=== PATIENT | male | born 1945 | race Caucasian/White ===

== ENCOUNTER → 2018-05-25 06:40 | Outpatient (CLI) | payer MEDICARE, OTHER, SELFPAY ==
--- NOTE | 2018-05-25 | DI.US.S_ITS ---
PROCEDURE: US THYROID INDICATIONS: GOITER, L NECK MASS, LN VS NODULE TECHNIQUE: Real-time scanning was performed of the thyroid gland, with image documentation. COMPARISON: None. FINDINGS: Right: 1.6 x 1.7 x 5.6 cm dimensions. No nodules. Left: 1.9 x 1.2 x 5.5 cm. No nodules. Isthmus: 3.0 mm. IMPRESSION: No thyroid nodules, normal size thyroid bilaterally. Dictated by: Mu Wiggins M.D. on 05/26/2018 at 12:21 Approved by: Mu Wiggins M.D. on 05/26/2018 at 12:24
[2018-05-25 07:46] LABS: Add Manual Diff / Slide Review NO; Basophils Absolute Auto 0 /uL (0-100); Basophils Percent Auto 0.6 % (0-2); Eosinophils Absolute Auto 100 /uL (0-450); Eosinophils Percent Auto 1.6 % (2-4); Hemoglobin 15.9 g/dL (13.5-17.5); Lymphocytes Absolute Auto 1400 /uL (1100-4500); Lymphocytes Percent Auto 34.3 % (25-40); Mean Corpuscular HGB Conc 33.7 % (30-36); Mean Corpuscular Volume 88.8 fL (80-100); Monocytes Absolute Auto 500 /uL (0-900); Monocytes Percent Auto 11.2 % (3-14); Neutrophils Absolute Auto 2200 /uL (1500-7000); Neutrophils Percent Auto 52.3 % (50-75); Platelet Count 252 X10^3/uL (150-400); Red Blood Cell Count 5.29 X10^6/uL (4.5-5.9); Red Cell Distribution Width 13.4 % (11.6-14.8); White Blood Cell Count 4.2 X10^3/uL (4.5-11.0)
[2018-05-25 08:03] LABS: Alanine Aminotransferase 37 IU/L (21-72); Albumin 4.4 g/dL (3.5-5.0); Albumin Globulin Ratio 1.4 (1.0-2.8); Alkaline Phosphatase 45 U/L (38-126); Aspartate Aminotransferase 32 IU/L (17-59); BUN Creatinine Ratio 23.3 (6-22); Bilirubin Total 1.5 mg/dL (0.2-1.3); Blood Urea Nitrogen 21 mg/dL (9-20); Calcium 9.5 mg/dL (8.4-10.2); Carbon Dioxide 28 mmol/L (22-32); Chloride 101 mmol/L (98-107); Cholesterol 297 mg/dL (140-199); Estimated Glomerular Filt Rate > 60.0 mL/min (>60); Globulin 3.2 g/dL (1.7-4.1); Glucose 117 mg/dL (80-110); HDL Cholesterol 68 mg/dL (40-60); HEMOLYSIS < 15 (0-50); LDL Cholesterol Calculated 212 mg/dL (<100); Potassium 4.3 mmol/L (3.4-5.1); Sodium 140 mmol/L (137-145); Total Protein 7.6 g/dL (6.3-8.2); Triglycerides 83 mg/dL (35-150)
[2018-05-25 08:13] LABS: C-Reactive Protein Quant < 0.5 mg/dL (<1.0)
[2018-05-25 09:05] LABS: Free T3, Triiodothyronine Free 4.02 pg/mL (2.77-5.27); Free T4, Direct Thyroxine 1.03 ng/dL (0.78-2.19)
[2018-05-26 14:20] LABS: Anti Thyroglobulin Antibody < 1 IU/mL (< 2); Thyroid Peroxidase Antibodies 1 IU/mL (< 9)
== END ==
PROVIDERS: PCP Nurse Practitioner Family; Visit Provider Nurse Practitioner Family
DX: E04.9 Nontoxic goiter, unspecified (principal); R22.1 Localized swelling, mass and lump, neck
CPT/HCPCS: 36415; 76536; 80053; 80061; 84439; 84443; 84481; 85025; 86140; 86376; 86800

== ENCOUNTER → 2020-05-17 15:03 | Outpatient (CLI) | payer MEDICARE, OTHER, SELFPAY ==
--- NOTE | 2020-05-17 | DI.RAD.S_ITS ---
PROCEDURE: XR SHOULDER RT MIN 2V INDICATIONS: RIGHT SHOULDER PAIN TECHNIQUE: 3 views of the shoulder were acquired. COMPARISON: None. FINDINGS: Bones: No fractures or dislocations. No suspicious bony lesions. Visualized ribs appear intact. 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 Moderate glenohumeral joint degenerative change. No trauma found. Soft tissues: No suspicious soft tissue calcifications. IMPRESSION: Degenerative changes as discussed, overall most pronounced at the acromioclavicular joint. No trauma. Dictated by: Mu Wiggins M.D. on 05/17/2020 at 16:51 Approved by: Mu Wiggins M.D. on 05/17/2020 at 16:52
== END ==
PROVIDERS: PCP Family Medicine; Referring Provider Family Medicine; Visit Provider Family Medicine
DX: M25.511 Pain in right shoulder (principal); M19.011 Primary osteoarthritis, right shoulder
CPT/HCPCS: 73030

== ENCOUNTER 2020-10-17 14:15 | Outpatient (RCR) | payer MEDICARE, OTHER, SELFPAY ==
--- NOTE | 2020-10-03 16:12 | PT.OIE ---
Current Diagnoses Parkinson's disease (10/03/20) Visit Care Team Role Provider Type Lenard Nance MD Primary Care Provider Physician Specialty: Family Practice Address: [address], [facility] [address], [place], [address] Email: [email or web address] Mainor Mckenna MD Attending Provider Non-Staff Referring Provider Specialty: Neurology Address: [address] [place] [address], [place], [address] Email: Physical Therapy Initial Evaluation PT-OP-A Visit Information Start: 10/01/20 15:11 Freq: Status: Active Protocol: Document 10/03/20 14:16 MB (Rec: 10/03/20 14:52 MB [id number]) Out-Patient Physical Therapy Visit Information Visit Information Visit Type Initial Evaluation Visit Note Medicare, [employer] Pt's larisa Shi, arrives with pt. Pt goes by Jaswant. 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 Pt lives with his significant other, Shi, and their 13 y/o dog. They have an apartment and also live on a boat that is easy to get on and off of. He denies falls. There are 10 [address] to the apartment. He drives. Pt 's diagnosis is new and was given in May 2020. He had a right shoulder issue and when he went to his doctor, he ask him to walk and then his doctor sent him to a neurologist. He had a MRI 6 weeks ago and the memory part was reduced. Pt was put on substitute Aricept. He is supposed to notice something different as he has been on it for six weeks. He has not started Carbidopa Levodopa yet and is concerned about it and taking pills in general. Pt diagnosed with aortic stenosis in April 2019. He is taking a statin. He reports B calf cramping. Further PMH includes HTN, mild dyslipidemia. Pt states that he is spitting a lot. He has thick, cleared mucus that is hard to clear. This keeps hiim up a lot at night. Pt drinks 2 cups of caffeinated coffee a day, 1-2 bottles of water, 1 glass of wine a night. Treatment Goals Patient/Caregiver Goals Pt and Shi would like for pt to be able to take charge of his health and stay active until his 90s. Prior Functional Status Baseline Function- ADL's Independent Baseline Function- Mobility Independent PT-OP-C Subjective Start: 10/01/20 15:11 Freq: Status: Active Protocol: Document 10/03/20 14:16 MB (Rec: 10/03/20 14:52 MB [id number]) OP-PT Subjective Patient Comments Patient Comments See history of current condition PT-OP-G Mobility & Gait Start: 10/01/20 15:11 Freq: Status: Active Protocol: Document 10/03/20 14:16 MB (Rec: 10/03/20 16:12 MB [id number]) OP Mobility Evaluation Bed Mobility Rolling I Supine to and from Sit I Transfers Sit to Stand I, 14 reps sit to design engineering manager 30 sec Bed to Chair Transfers I OP Gait Assessment Gait Gait Assistance Required: Independent Distance (Feet) 50 Able to Maintain Weight Bearing Status Yes During Gait Assistive Devices Assistive Device None Orthotic/Prosthetic Devices or Brace: No Gait Deviations General Gait Pattern Decreased Feet Clearance, Flexed Trunk Factors Limiting Gait Function Factors Limiting Gait Function Incoordination,Limited Range of Motion,Pain,Poor Balance Comments Gait Comments Forward, flexed posture with short steps and 1 episode of not clearing right foot with gait, little right UE arm swing with gait, kick steps that are mildly festinating PT-OP-H Neuro Start: 10/01/20 15:11 Freq: Status: Active Protocol: Document 10/03/20 14:16 MB (Rec: 10/03/20 16:12 MB [id number]) Coordination Evaluation Upper Extremity Tests Left Finger to Nose Test Minimal Impairment Pronation/Supination Test Minimal Impairment Right Finger to Nose Test Minimal Impairment Pronation/Supination Test Moderate Impairment Lower Extremity Tests Left Foot Tapping Test Minimal Impairment Right Foot Tapping Test Moderate Impairment Comments Coordination Comments Pt performs foot tapping on opposite side of other foot for LE test Vital Signs Comments Vital Signs Comments Orthostatic assessment: BP and HR in LUE: supine 102/68; standing 111/78, 77; standing 1' 103/73, 70; standing 2' 111 /80, 78 PT-OP-K Range of Motion Start: 10/01/20 15:11 Freq: Status: Active Protocol: Document 10/03/20 14:16 MB (Rec: 10/03/20 16:12 MB [id number]) Shoulder Goniometric Range of Motion Shoulder ROM Limitations Comments Left shoulder ROM is functional. Right shoulder flexion and abduction is reduced to 90 deg both PT-OP-M Strength Start: 10/01/20 15:11 Freq: Status: Active Protocol: Document 10/03/20 14:16 MB (Rec: 10/03/20 16:12 MB [id number]) Shoulder Strength Shoulder Manual Muscle Testing Left Flexion 5 Normal Right Comments Deferred d/t painful and limited AROM Elbow/Forearm Strength Elbow and Forearm Manual Muscle Testing Left Flexion (C6) 5 Normal Right Flexion (C6) 5 Normal Hip Strength Hip Manual Muscle Testing B Flexion (L2) 5 Normal Knee Strength Knee Manual Muscle Testing B Extension (L3) 5 Normal Ankle/Foot Strength Ankle and Foot Manual Muscle Testing B Dorsiflexion (L4) 5 Normal Toe Strength Toe Manual Muscle Testing Left Great Toe Extension 5 Normal Right Great Toe Extension 5 Normal PT-OP-Q Treatments Start: 10/01/20 15:11 Freq: Status: Active Protocol: Document 10/03/20 14:16 MB (Rec: 10/03/20 15:55 MB [id number]) Self-Care/Home Management Treatment Education Other Education Education to pt and Shi: they both report concerns about Carbidopa and Levodopa and PT encourages them to call doctor's office and the benefits of receiving pharmacological therapies at the same time as LSVt, PT educates pt on dopamine and movement. Pt reports history of calf cramps and wooziness and PT ed pt on better hydration choices, PT ed on orthostatic hypotension and commonality with PD and also with aortic stenosis and HCTZ. Orthostatic assessment is negative and BP is low. Recommend follow-up with doctors as appropriate. PT ed pt and Shi to talk with doctor and pharmacist about magnesium/leg cramps. PT provides handout about LSVT BIG, exercise video, filling out functional activity list before next visit. Ed PT in other signs and symptoms of PD including trouble swallowing and benefits of following up with speech therapy about this and Shi to contact doctor about swallow study. PT-OP-T Assessment and Plan Start: 10/01/20 15:11 Freq: Status: Active Protocol: Document 10/03/20 14:16 MB (Rec: 10/03/20 16:06 MB [id number]) Physical Therapy Assessment Rehab Potential Rehabilitation Potential Good Evaluation Complexity Number of Personal Factors/Comorbidities 3 or More Number of Body Systems Impaired 3 Clinical Presentation at Evaluation Evolving Impairments Impairments Activity Tolerance,Balance, Coordination,Functional Activities,Functional Mobility ,Gait,Pain,Posture,ROM,Soft Tissue Mobility,Strength, Transfers Other Impairments Personal factors include changing cognition, reluctance to take PD medication, concerns about his voice and asking Shi to speak for him occ. Body systems affected include musculoskeletal, neurological, cardiac and cognitive. His clinical presentation is evolving. Other Concerns Fall Risk Yes Goals 4 Fci Goal (LTG) Pt will perform WNLs on a standardized balance test to decrease fall risk by 11/11/20. LTG Duration 16 treatments 3 Fci Goal (LTG) Pt will perform at least 16 reps sit to stand without UE support in 30 sec to improve functional balance and strength by 11/11/20. LTG Duration 16 treatments 2 Fci Goal (LTG) Pt will gait train at least 1600 feet in 6 minutes without AD and performing cognitive task at least 3' to improve community ambulation by . LTG Duration 16 treatments 1 Neurological Physiotherapist Goal (LTG) Pt will perform BIG exercises and functional tasks BID to improve amplitude and balance by 11/11/20. LTG Duration 16 treatments Assessment Summary Assessment Pt is a 74 y/o male presenting with dysdiadochokinesia, altered gait, decreased right shoulder ROM and right arm swing with gait, cognitive changes, soft voice and reports of swallowing changes in setting of newly diagnosed PD 05/23. Pt and significant other state that they have been nervous for him to start PD medication and PT provides education within PT scope and recommends follow-up with neurologist about getting started so that pharmacological therapies can augment physical therapy intereventions. PT also encourages asking doctor for a speech therapy swallowing consult. His BP is low and he reports his biggest complaint is wooziness and orthostatic testing is negative today. Recommend keep an eye on this given PD, symptoms, low BP and he is on HCTZ. Pt will benefit from BIG PT to improve amplitude, gait and function. Barriers include: low BP and wooziness, aortic stenosis, leg cramps worse when up walking and pt taking statin, not yet treated with pharmacological therapies and questionable swallowing. Physical Therapy Plan Frequency and Duration Frequency of Treatment 16 treatments Duration of Treatment 16 treatments Plan of Care Start Date 10/03/20 Plan of Care End Date 11/11/20 Therapeutic Interventions Therapeutic Interventions Balance Training,Canalithic Repositioning,Coordination Training,Gait Training,Home Exercise Program,Neuromuscular Re-education,Patient/ Caregiver Education,Self-Care/ Home Management,Therapeutic Activities,Therapeutic Exercises Modalities Cold Pack/Ice Massage,Hot Packs Other Referrals/Consults Referrals/Consults Recommended Follow-up with neurologist about starting recommended PD medication, swallowing test Next Visit Focus/Plan Next Note Type Treatment Note Next Visit Plan Review functional tasks for goals, start BIG exercises, give video DVD for pt to borrow
--- NOTE | 2020-10-03 16:13 | PT.OPPOC ---
Physical, Occupational & Speech Therapy At [facility] Current Diagnoses Parkinson's disease (10/03/20) Visit Care Team Role Provider Type Lenard Nance MD Primary Care Provider Physician Specialty: Family Practice Address: [address] [place] [address], [address], [place], [address] Email: [email or web address] Mainor Mckenna MD Attending Provider Non-Staff Referring Provider Specialty: Neurology Address: [address] [place] [address] [id number], [place], [address] Email: Plan Of Care PT-OP-T Assessment and Plan Start: 10/01/20 15:11 Freq: Status: Active Protocol: Document 10/03/20 14:16 MB (Rec: 10/03/20 16:06 MB [id number]) Physical Therapy Assessment Rehab Potential Rehabilitation Potential Good Evaluation Complexity Number of Personal Factors/Comorbidities 3 or More Number of Body Systems Impaired 3 Clinical Presentation at Evaluation Evolving Impairments Impairments Activity Tolerance,Balance, Coordination,Functional Activities,Functional Mobility ,Gait,Pain,Posture,ROM,Soft Tissue Mobility,Strength, Transfers Other Impairments Personal factors include changing cognition, reluctance to take PD medication, concerns about his voice and asking Shi to speak for him occ. Body systems affected include musculoskeletal, neurological, cardiac and cognitive. His clinical presentation is evolving. Other Concerns Fall Risk Yes Goals 4 Seam Taper Machine Goal (LTG) Pt will perform WNLs on a standardized balance test to decrease fall risk by 11/11/20. LTG Duration 16 treatments 3 Fci Goal (LTG) Pt will perform at least 16 reps sit to stand without UE support in 30 sec to improve functional balance and strength by 11/11/20. LTG Duration 16 treatments 2 Seam Taper Machine Goal (LTG) Pt will gait train at least 1600 feet in 6 minutes without AD and performing cognitive task at least 3' to improve community ambulation by . LTG Duration 16 treatments 1 Seam Taper Machine Goal (LTG) Pt will perform BIG exercises and functional tasks BID to improve amplitude and balance by 11/11/20. LTG Duration 16 treatments Assessment Summary Assessment Pt is a 74 y/o male presenting with dysdiadochokinesia, altered gait, decreased right shoulder ROM and right arm swing with gait, cognitive changes, soft voice and reports of swallowing changes in setting of newly diagnosed PD 05/23. Pt and significant other state that they have been nervous for him to start PD medication and PT provides education within PT scope and recommends follow-up with neurologist about getting started so that pharmacological therapies can augment physical therapy intereventions. PT also encourages asking doctor for a speech therapy swallowing consult. His BP is low and he reports his biggest complaint is wooziness and orthostatic testing is negative today. Recommend keep an eye on this given PD, symptoms, low BP and he is on HCTZ. Pt will benefit from BIG PT to improve amplitude, gait and function. Barriers include: low BP and wooziness, aortic stenosis, leg cramps worse when up walking and pt taking statin, not yet treated with pharmacological therapies and questionable swallowing. Physical Therapy Plan Frequency and Duration Frequency of Treatment 16 treatments Duration of Treatment 16 treatments Plan of Care Start Date 10/03/20 Plan of Care End Date 11/11/20 Therapeutic Interventions Therapeutic Interventions Balance Training,Canalithic Repositioning,Coordination Training,Gait Training,Home Exercise Program,Neuromuscular Re-education,Patient/ Caregiver Education,Self-Care/ Home Management,Therapeutic Activities,Therapeutic Exercises Modalities Cold Pack/Ice Massage,Hot Packs Other Referrals/Consults Referrals/Consults Recommended Follow-up with neurologist about starting recommended PD medication, swallowing test Next Visit Focus/Plan Next Note Type Treatment Note Next Visit Plan Review functional tasks for goals, start BIG exercises, give video DVD for pt to borrow Plan of Care Dates Plan of Care Start Date 10/03/20 Plan of Care End Date 11/11/20 Electronically Signed by: Harika Booker PT 10/03/20 1924 Please Sign and Return: I have reviewed this Plan of Care and certify that the skilled therapy services above are required to meet the patient?s needs. Physician Signature Date Printed Name and Credentials Clinical Instructor Signature Printed Name and Credentials
--- NOTE | 2020-10-07 15:37 | PT.OTN ---
Current Diagnoses Parkinson's disease (10/07/20) Physical Therapy Treatment Note PT-OP-A Visit Information Start: 10/01/20 15:11 Freq: Status: Active Protocol: Document 10/07/20 14:15 MB (Rec: 10/07/20 15:37 MB [id number]) Out-Patient Physical Therapy Visit Information Visit Information Visit Type Treatment Note Visit Note Medicare, [employer] Visit Start Time 14:15 Visit Stop Time 15:13 Total Visit Minutes 58 Visit Number 2 PT-OP-B Current Condition Start: 10/01/20 15:11 Freq: Status: Active Protocol: Document 10/03/20 14:16 MB (Rec: 10/03/20 14:52 MB [id number]) Current Condition History of Current Condition Onset Date May 2020 Current Complaints Wooziness, right UE pain and decreased function, cognitive and voice change History of Current Condition 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 Pt lives with his significant other, Shi, and their 13 y/o dog. They have an apartment and also live on a boat that is easy to get on and off of. He denies falls. There are 10 steps to the apartment. He drives. Pt 's diagnosis is new and was given in May 2020. He had a right shoulder issue and when he went to his doctor, he ask him to walk and then his doctor sent him to a neurologist. He had a MRI 6 weeks ago and the memory part was reduced. Pt was put on substitute Aricept. He is supposed to notice something different as he has been on it for six weeks. He has not started Carbidopa Levodopa yet and is concerned about it and taking pills in general. Pt diagnosed with aortic stenosis in April 2019. He is taking a statin. He reports B calf cramping. Further PMH includes HTN, mild dyslipidemia. Pt states that he is spitting a lot. He has thick, cleared mucus that is hard to clear. This keeps hiim up a lot at night. Pt drinks 2 cups of caffeinated coffee a day, 1-2 bottles of water, 1 glass of wine a night. Treatment Goals Patient/Caregiver Goals Pt and Shi would like for pt to be able to take charge of his health and stay active until his 90s. Prior Functional Status Baseline Function- ADL's Independent Baseline Function- Mobility Independent PT-OP-C Subjective Start: 10/01/20 15:11 Freq: Status: Active Protocol: Document 10/07/20 14:15 MB (Rec: 10/07/20 15:37 MB [id number]) OP-PT Subjective Patient Comments Patient Comments Pt and Shi bring in pt's functional task list. Troublesome tasks to work on include putting on shirts overhead, talk and be heard, standing and walking straight and not bent over, walking faster. Writing a check is circled on tool form. Shi states that his neurologist wants to meet with him in person before discussing Carbidopa Levadopa. PT-OP-G Mobility & Gait Start: 10/01/20 15:11 Freq: Status: Active Protocol: Document 10/03/20 14:16 MB (Rec: 10/03/20 16:12 MB [id number]) OP Mobility Evaluation Bed Mobility Rolling I Supine to and from Sit I Transfers Sit to Stand I, 14 reps sit to spindle sander 30 sec Bed to Chair Transfers I OP Gait Assessment Gait Gait Assistance Required: Independent Distance (Feet) 50 Able to Maintain Weight Bearing Status Yes During Gait Assistive Devices Assistive Device None Orthotic/Prosthetic Devices or Brace: No Gait Deviations General Gait Pattern Decreased Feet Clearance, Flexed Trunk Factors Limiting Gait Function Factors Limiting Gait Function Incoordination,Limited Range of Motion,Pain,Poor Balance Comments Gait Comments Forward, flexed posture with short steps and 1 episode of not clearing right foot with gait, little right UE arm swing with gait, kick steps that are mildly festinating PT-OP-H Neuro Start: 10/01/20 15:11 Freq: Status: Active Protocol: Document 10/03/20 14:16 MB (Rec: 10/03/20 16:12 MB [id number]) Coordination Evaluation Upper Extremity Tests Left Finger to Nose Test Minimal Impairment Pronation/Supination Test Minimal Impairment Right Finger to Nose Test Minimal Impairment Pronation/Supination Test Moderate Impairment Lower Extremity Tests Left Foot Tapping Test Minimal Impairment Right Foot Tapping Test Moderate Impairment Comments Coordination Comments Pt performs foot tapping on opposite side of other foot for LE test Vital Signs Comments Vital Signs Comments Orthostatic assessment: BP and HR in LUE: supine 102/68; standing 111/78, 77; standing 1' 103/73, 70; standing 2' 111 /80, 78 PT-OP-K Range of Motion Start: 10/01/20 15:11 Freq: Status: Active Protocol: Document 10/03/20 14:16 MB (Rec: 10/03/20 16:12 MB [id number]) Shoulder Goniometric Range of Motion Shoulder ROM Limitations Comments Left shoulder ROM is functional. Right shoulder flexion and abduction is reduced to 90 deg both PT-OP-M Strength Start: 10/01/20 15:11 Freq: Status: Active Protocol: Document 10/03/20 14:16 MB (Rec: 10/03/20 16:12 MB [id number]) Shoulder Strength Shoulder Manual Muscle Testing Left Flexion 5 Normal Right Comments Deferred d/t painful and limited AROM Elbow/Forearm Strength Elbow and Forearm Manual Muscle Testing Left Flexion (C6) 5 Normal Right Flexion (C6) 5 Normal Hip Strength Hip Manual Muscle Testing B Flexion (L2) 5 Normal Knee Strength Knee Manual Muscle Testing B Extension (L3) 5 Normal Ankle/Foot Strength Ankle and Foot Manual Muscle Testing B Dorsiflexion (L4) 5 Normal Toe Strength Toe Manual Muscle Testing Left Great Toe Extension 5 Normal Right Great Toe Extension 5 Normal PT-OP-Q Treatments Start: 10/01/20 15:11 Freq: Status: Active Protocol: Document 10/07/20 14:15 MB (Rec: 10/07/20 15:37 MB [id number]) Therapeutic Exercises Sitting Exercises Floor to ceiling Equipment Used Pt outside on side walk in front of clinic, teal chair Reps/Minutes 5 reps Comments Cues for exercise, form and shaping arms Side to side Side bilateral Equipment Used Pt outside on side walk in front of clinic, teal chair Reps/Minutes 5 reps Comments Cues for exercise, form, shaping arms BIG sit to stand Equipment Used Pt outside on side walk in front of clinic, teal chair Reps/Minutes 10 reps Comments Cues for exercise, form, shaping arms Standing Exercises Side rock and reach Side bilateral Reps/Minutes 10 reps Comments Cues for stance, arms, feet, more trouble with rock and reach ex Forward rock and reach Side bilateral Reps/Minutes 10 reps x2 Comments Cues for stance, arms, feet, more trouble with rock and reach ex Side step Side bilateral Reps/Minutes 5 reps Comments Cues for BIG right arm, shaping, cues for exercise Backward step Side bilateral Reps/Minutes 10 reps Comments More trouble with this exercise, VCs and tactile cues for UEs Forward step Side bilateral Reps/Minutes 10 reps Comments Cues for exercise, demo Self-Care/Home Management Treatment Education Other Education Provided BIG exercise handouts (standard), ed pt in performance once a day on therapy days and twice a day on non-therapy days, provided check off sheet, provided BIG DVD to yasir PT-OP-T Assessment and Plan Start: 10/01/20 15:11 Freq: Status: Active Protocol: Document 10/07/20 14:15 MB (Rec: 10/07/20 15:37 MB [id number]) Physical Therapy Assessment Rehab Potential Rehabilitation Potential Good Evaluation Complexity Number of Personal Factors/Comorbidities 3 or More Number of Body Systems Impaired 3 Clinical Presentation at Evaluation Evolving Impairments Impairments Activity Tolerance,Balance, Coordination,Functional Activities,Functional Mobility ,Gait,Pain,Posture,ROM,Soft Tissue Mobility,Strength, Transfers Other Impairments Personal factors include changing cognition, reluctance to take PD medication, concerns about his voice and asking Shi to speak for him occ. Body systems affected include musculoskeletal, neurological, cardiac and cognitive. His clinical presentation is evolving. Other Concerns Fall Risk Yes Goals 4 Public Policy Associate Goal (LTG) Pt will perform WNLs on a standardized balance test to decrease fall risk by 11/11/20. LTG Duration 16 treatments 3 Public Policy Associate Goal (LTG) Pt will perform at least 16 reps sit to stand without UE support in 30 sec to improve functional balance and strength by 11/11/20. LTG Duration 16 treatments 2 Public Policy Associate Goal (LTG) Pt will gait train at least 1600 feet in 6 minutes without AD and performing cognitive task at least 3' to improve community ambulation by . LTG Duration 16 treatments 1 Public Policy Associate Goal (LTG) Pt will perform BIG exercises and functional tasks BID to improve amplitude and balance by 11/11/20. LTG Duration 16 treatments Assessment Summary Assessment Initiated BIG exercise training today with pt and Shi and pt performs well. The exercises and positions are challenging and will consider starting with rock and reach exercises and backwards stepping today. Physical Therapy Plan Frequency and Duration Frequency of Treatment 16 treatments Duration of Treatment 16 treatments Plan of Care Start Date 10/03/20 Plan of Care End Date 07/12/21 Therapeutic Interventions Therapeutic Interventions Balance Training,Canalithic Repositioning,Coordination Training,Gait Training,Home Exercise Program,Neuromuscular Re-education,Patient/ Caregiver Education,Self-Care/ Home Management,Therapeutic Activities,Therapeutic Exercises Modalities Cold Pack/Ice Massage,Hot Packs Other Referrals/Consults Referrals/Consults Recommended Follow-up with neurologist about starting recommended PD medication, swallowing test Next Visit Focus/Plan Next Note Type Treatment Note Next Visit Plan BIG exercise review, start BIG walking, functional tasks will include donning shirt ( likely sweatshirt) overhead and writing a check
--- NOTE | 2020-10-08 15:27 | PT.OTN ---
Current Diagnoses Parkinson's disease (10/08/20) Physical Therapy Treatment Note PT-OP-A Visit Information Start: 10/01/20 15:11 Freq: Status: Active Protocol: Document 10/08/20 14:15 MB (Rec: 10/08/20 15:27 MB [id number]) Out-Patient Physical Therapy Visit Information Visit Information Visit Type Treatment Note Visit Note Medicare, [employer] Visit Start Time 14:15 Visit Stop Time 15:15 Total Visit Minutes 60 Visit Number 3 PT-OP-B Current Condition Start: 10/01/20 15:11 Freq: Status: Active Protocol: Document 10/03/20 14:16 MB (Rec: 10/03/20 14:52 MB [id number]) Current Condition History of Current Condition Onset Date May 2020 Current Complaints Wooziness, right UE pain and decreased function, cognitive and voice change History of Current Condition 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 Pt lives with his significant other, Shi, and their 13 y/o dog. They have an apartment and also live on a boat that is easy to get on and off of. He denies falls. There are 10 [address] to the apartment. He drives. Pt 's diagnosis is new and was given in May 2020. He had a right shoulder issue and when he went to his doctor, he ask him to walk and then his doctor sent him to a neurologist. He had a MRI 6 weeks ago and the memory part was reduced. Pt was put on substitute Aricept. He is supposed to notice something different as he has been on it for six weeks. He has not started Carbidopa Levodopa yet and is concerned about it and taking pills in general. Pt diagnosed with aortic stenosis in April 2019. He is taking a statin. He reports B calf cramping. Further PMH includes HTN, mild dyslipidemia. Pt states that he is spitting a lot. He has thick, cleared mucus that is hard to clear. This keeps hiim up a lot at night. Pt drinks 2 cups of caffeinated coffee a day, 1-2 bottles of water, 1 glass of wine a night. Treatment Goals Patient/Caregiver Goals Pt and Shi would like for pt to be able to take charge of his health and stay active until his 90s. Prior Functional Status Baseline Function- ADL's Independent Baseline Function- Mobility Independent PT-OP-C Subjective Start: 10/01/20 15:11 Freq: Status: Active Protocol: Document 10/08/20 14:15 MB (Rec: 10/08/20 15:27 MB [id number]) OP-PT Subjective Patient Comments Patient Comments I did twenty reps of the exercises today. Shi is going to buy the DVD. PT-OP-G Mobility & Gait Start: 10/01/20 15:11 Freq: Status: Active Protocol: Document 10/03/20 14:16 MB (Rec: 10/03/20 16:12 MB [id number]) OP Mobility Evaluation Bed Mobility Rolling I Supine to and from Sit I Transfers Sit to Stand I, 14 reps sit to printing table worker 30 sec Bed to Chair Transfers I OP Gait Assessment Gait Gait Assistance Required: Independent Distance (Feet) 50 Able to Maintain Weight Bearing Status Yes During Gait Assistive Devices Assistive Device None Orthotic/Prosthetic Devices or Brace: No Gait Deviations General Gait Pattern Decreased Feet Clearance, Flexed Trunk Factors Limiting Gait Function Factors Limiting Gait Function Incoordination,Limited Range of Motion,Pain,Poor Balance Comments Gait Comments Forward, flexed posture with short steps and 1 episode of not clearing right foot with gait, little right UE arm swing with gait, kick steps that are mildly festinating PT-OP-H Neuro Start: 10/01/20 15:11 Freq: Status: Active Protocol: Document 10/03/20 14:16 MB (Rec: 10/03/20 16:12 MB [id number]) Coordination Evaluation Upper Extremity Tests Left Finger to Nose Test Minimal Impairment Pronation/Supination Test Minimal Impairment Right Finger to Nose Test Minimal Impairment Pronation/Supination Test Moderate Impairment Lower Extremity Tests Left Foot Tapping Test Minimal Impairment Right Foot Tapping Test Moderate Impairment Comments Coordination Comments Pt performs foot tapping on opposite side of other foot for LE test Vital Signs Comments Vital Signs Comments Orthostatic assessment: BP and HR in LUE: supine 102/68; standing 111/78, 77; standing 1' 103/73, 70; standing 2' 111 /80, 78 PT-OP-K Range of Motion Start: 10/01/20 15:11 Freq: Status: Active Protocol: Document 10/03/20 14:16 MB (Rec: 10/03/20 16:12 MB [id number]) Shoulder Goniometric Range of Motion Shoulder ROM Limitations Comments Left shoulder ROM is functional. Right shoulder flexion and abduction is reduced to 90 deg both PT-OP-M Strength Start: 10/01/20 15:11 Freq: Status: Active Protocol: Document 10/03/20 14:16 MB (Rec: 10/03/20 16:12 MB [id number]) Shoulder Strength Shoulder Manual Muscle Testing Left Flexion 5 Normal Right Comments Deferred d/t painful and limited AROM Elbow/Forearm Strength Elbow and Forearm Manual Muscle Testing Left Flexion (C6) 5 Normal Right Flexion (C6) 5 Normal Hip Strength Hip Manual Muscle Testing B Flexion (L2) 5 Normal Knee Strength Knee Manual Muscle Testing B Extension (L3) 5 Normal Ankle/Foot Strength Ankle and Foot Manual Muscle Testing B Dorsiflexion (L4) 5 Normal Toe Strength Toe Manual Muscle Testing Left Great Toe Extension 5 Normal Right Great Toe Extension 5 Normal PT-OP-Q Treatments Start: 10/01/20 15:11 Freq: Status: Active Protocol: Document 10/08/20 14:15 MB (Rec: 10/08/20 15:27 MB [id number]) Therapeutic Exercises Sitting Exercises Floor to ceiling Equipment Used Pt outside on side walk in front of clinic, teal chair Reps/Minutes 5 reps Comments Improved form today, cues to count Side to side Side bilateral Equipment Used Pt outside on side walk in front of clinic, teal chair Reps/Minutes 5 reps Comments Cues to count and for shaping BIG sit to stand Equipment Used Pt outside on side walk in front of clinic, teal chair Reps/Minutes 10 reps Comments Cues to reach forward Standing Exercises Side rock and reach Side bilateral Reps/Minutes 10 reps Comments Ongoing trouble with pivot and arms, cues and demo Forward rock and reach Side bilateral Reps/Minutes 10 reps Comments Cues for BIG right arm ( extension) and stance Side step Side bilateral Reps/Minutes 5 reps Comments Cues and demo for BIG step, BIG look Backward step Side bilateral Reps/Minutes 10 reps Comments Improvement today with this one, cues and demo required Forward step Side bilateral Reps/Minutes 10 reps Comments Cues for exercise, demo Therapeutic Activity Therapeutic Activity Donning and doffing sweatshirt Reps/Minutes 8' Comments Before BIG trainin minute 39 sec to don and doff with more time to don. Practice and cues to draw up back of sweatshirt, put right arm in BIG first and then put in left arm BIG and then overhead. To doff: left arm BIG back and out (scapular retraction), head out and then right arm out BIG. 3 reps Gait Training Gait Activity BIG gait Distance/Duration 1' Comments Introduction to BIG gait, will work on arm swing. Quick gait on parking lot today PT-OP-T Assessment and Plan Start: 10/01/20 15:11 Freq: Status: Active Protocol: Document 10/08/20 14:15 MB (Rec: 10/08/20 15:27 MB [id number]) Physical Therapy Assessment Rehab Potential Rehabilitation Potential Good Evaluation Complexity Number of Personal Factors/Comorbidities 3 or More Number of Body Systems Impaired 3 Clinical Presentation at Evaluation Evolving Impairments Impairments Activity Tolerance,Balance, Coordination,Functional Activities,Functional Mobility ,Gait,Pain,Posture,ROM,Soft Tissue Mobility,Strength, Transfers Other Impairments Personal factors include changing cognition, reluctance to take PD medication, concerns about his voice and asking Shi to speak for him occ. Body systems affected include musculoskeletal, neurological, cardiac and cognitive. His clinical presentation is evolving. Other Concerns Fall Risk Yes Goals 4 Snf Goal (LTG) Pt will perform WNLs on a standardized balance test to decrease fall risk by 11/11/20. LTG Duration 16 treatments 3 Snf Goal (LTG) Pt will perform at least 16 reps sit to stand without UE support in 30 sec to improve functional balance and strength by 11/11/20. LTG Duration 16 treatments 2 Plate Furnace Operator Goal (LTG) Pt will gait train at least 1600 feet in 6 minutes without AD and performing cognitive task at least 3' to improve community ambulation by . LTG Duration 16 treatments 1 Plate Furnace Operator Goal (LTG) Pt will perform BIG exercises and functional tasks BID to improve amplitude and balance by 11/11/20. LTG Duration 16 treatments Assessment Summary Assessment Pt performs BIG exercises better today and in less time. He does have trouble coordinating UE and LE movements and ongoing cues to slow down and work on amplitude. Introduced therapeutic activities and gait today. Physical Therapy Plan Frequency and Duration Frequency of Treatment 16 treatments Duration of Treatment 16 treatments Plan of Care Start Date 10/03/20 Plan of Care End Date 11/11/20 Therapeutic Interventions Therapeutic Interventions Balance Training,Canalithic Repositioning,Coordination Training,Gait Training,Home Exercise Program,Neuromuscular Re-education,Patient/ Caregiver Education,Self-Care/ Home Management,Therapeutic Activities,Therapeutic Exercises Modalities Cold Pack/Ice Massage,Hot Packs Other Referrals/Consults Referrals/Consults Recommended Follow-up with neurologist about starting recommended PD medication, swallowing test Next Visit Focus/Plan Next Note Type Treatment Note Next Visit Plan BIG exercises, sweatshirt, check writing, start BIG walking
--- NOTE | 2020-10-09 15:38 | PT.OTN ---
Current Diagnoses Parkinson's disease (10/09/20) Physical Therapy Treatment Note PT-OP-A Visit Information Start: 10/01/20 15:11 Freq: Status: Active Protocol: Document 10/09/20 15:24 AW (Rec: 10/09/20 15:38 AW [id number]) Out-Patient Physical Therapy Visit Information Visit Information Visit Type Treatment Note Visit Start Time 14:15 Visit Stop Time 15:17 Total Visit Minutes 62 Visit Number 4 Evaluation Information Evaluation Date 10/03/20 PT-OP-B Current Condition Start: 10/01/20 15:11 Freq: Status: Active Protocol: Document 10/03/20 14:16 MB (Rec: 10/03/20 14:52 MB [id number]) Current Condition History of Current Condition Onset Date May 2020 Current Complaints Wooziness, right UE pain and decreased function, cognitive and voice change History of Current Condition 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 Pt lives with his significant other, Shi, and their 13 y/o dog. They have an apartment and also live on a boat that is easy to get on and off of. He denies falls. There are 10 steps to the apartment. He drives. Pt 's diagnosis is new and was given in May 2020. He had a right shoulder issue and when he went to his doctor, he ask him to walk and then his doctor sent him to a neurologist. He had a MRI 6 weeks ago and the memory part was reduced. Pt was put on substitute Aricept. He is supposed to notice something different as he has been on it for six weeks. He has not started Carbidopa Levodopa yet and is concerned about it and taking pills in general. Pt diagnosed with aortic stenosis in April 2019. He is taking a statin. He reports B calf cramping. Further PMH includes HTN, mild dyslipidemia. Pt states that he is spitting a lot. He has thick, cleared mucus that is hard to clear. This keeps hiim up a lot at night. Pt drinks 2 cups of caffeinated coffee a day, 1-2 bottles of water, 1 glass of wine a night. Treatment Goals Patient/Caregiver Goals Pt and Shi would like for pt to be able to take charge of his health and stay active until his 90s. Prior Functional Status Baseline Function- ADL's Independent Baseline Function- Mobility Independent PT-OP-C Subjective Start: 10/01/20 15:11 Freq: Status: Active Protocol: Document 10/09/20 15:24 AW (Rec: 10/09/20 15:38 AW [email or web address]) OP-PT Subjective Patient Comments Patient Comments I didn't do the exercises today because I had a conference call and have been busy. PT-OP-G Mobility & Gait Start: 10/01/20 15:11 Freq: Status: Active Protocol: Document 10/03/20 14:16 MB (Rec: 10/03/20 16:12 MB [id number]) OP Mobility Evaluation Bed Mobility Rolling I Supine to and from Sit I Transfers Sit to Stand I, 14 reps sit to director audience marketing 30 sec Bed to Chair Transfers I OP Gait Assessment Gait Gait Assistance Required: Independent Distance (Feet) 50 Able to Maintain Weight Bearing Status Yes During Gait Assistive Devices Assistive Device None Orthotic/Prosthetic Devices or Brace: No Gait Deviations General Gait Pattern Decreased Feet Clearance, Flexed Trunk Factors Limiting Gait Function Factors Limiting Gait Function Incoordination,Limited Range of Motion,Pain,Poor Balance Comments Gait Comments Forward, flexed posture with short steps and 1 episode of not clearing right foot with gait, little right UE arm swing with gait, kick steps that are mildly festinating PT-OP-H Neuro Start: 10/01/20 15:11 Freq: Status: Active Protocol: Document 10/03/20 14:16 MB (Rec: 10/03/20 16:12 MB [id number]) Coordination Evaluation Upper Extremity Tests Left Finger to Nose Test Minimal Impairment Pronation/Supination Test Minimal Impairment Right Finger to Nose Test Minimal Impairment Pronation/Supination Test Moderate Impairment Lower Extremity Tests Left Foot Tapping Test Minimal Impairment Right Foot Tapping Test Moderate Impairment Comments Coordination Comments Pt performs foot tapping on opposite side of other foot for LE test Vital Signs Comments Vital Signs Comments Orthostatic assessment: BP and HR in LUE: supine 102/68; standing 111/78, 77; standing 1' 103/73, 70; standing 2' 111 /80, 78 PT-OP-K Range of Motion Start: 10/01/20 15:11 Freq: Status: Active Protocol: Document 10/03/20 14:16 MB (Rec: 10/03/20 16:12 MB [id number]) Shoulder Goniometric Range of Motion Shoulder ROM Limitations Comments Left shoulder ROM is functional. Right shoulder flexion and abduction is reduced to 90 deg both PT-OP-M Strength Start: 10/01/20 15:11 Freq: Status: Active Protocol: Document 10/03/20 14:16 MB (Rec: 10/03/20 16:12 MB [id number]) Shoulder Strength Shoulder Manual Muscle Testing Left Flexion 5 Normal Right Comments Deferred d/t painful and limited AROM Elbow/Forearm Strength Elbow and Forearm Manual Muscle Testing Left Flexion (C6) 5 Normal Right Flexion (C6) 5 Normal Hip Strength Hip Manual Muscle Testing B Flexion (L2) 5 Normal Knee Strength Knee Manual Muscle Testing B Extension (L3) 5 Normal Ankle/Foot Strength Ankle and Foot Manual Muscle Testing B Dorsiflexion (L4) 5 Normal Toe Strength Toe Manual Muscle Testing Left Great Toe Extension 5 Normal Right Great Toe Extension 5 Normal PT-OP-Q Treatments Start: 10/01/20 15:11 Freq: Status: Active Protocol: Document 10/09/20 15:24 AW (Rec: 10/09/20 15:38 AW [email or web address]) Therapeutic Exercises Sitting Exercises Floor to ceiling Equipment Used Pt outside on side walk in front of clinic, teal chair with blue foam Reps/Minutes 8 reps Comments good loud phonation in counting Side to side Side bilateral Equipment Used Pt outside on side walk in front of clinic, teal chair Reps/Minutes 5 reps Comments shaping for improved rotation BIG sit to stand Equipment Used Pt outside on side walk in front of clinic, teal chair Reps/Minutes 10 reps Comments cues for bigger fwd reach, especially on descent Standing Exercises Side rock and reach Side bilateral Reps/Minutes 10 reps Comments good response to cues to look toward target behind Forward rock and reach Side bilateral Reps/Minutes 10 reps Comments difficulty integrating LE and UE motions Side step Side bilateral Reps/Minutes 5 reps Comments cues and demo for increased rotation Backward step Side bilateral Reps/Minutes 10 reps Comments improved tempo with increased reps Forward step Side bilateral Reps/Minutes 10 reps Comments cues for big foot clearance, back off from full lunge Therapeutic Activity Therapeutic Activity handwriting Name handwriting Reps/Minutes 8' Comments Began with writing checks. Pt frustrated with poor control of pen and size of writing. Shared flicks and coached BIG movement of entire upper extremity as pt practiced writing capital O across blank page with focus on maintaining amplitude. Donning and doffing sweatshirt Reps/Minutes 4' Comments Not timed but pt practice two reps before exercises outside Gait Training Gait Activity BIG gait Distance/Duration 13' Treatment Focus arm swing, driving overall BIG movement Comments Multiple passes in front of clinic with pt encouraged to think BIG and drive arm swing. Pt has difficulty coordinating opposite arm/ opposite leg but is successful on at least three passes. PT-OP-T Assessment and Plan Start: 10/01/20 15:11 Freq: Status: Active Protocol: Document 10/09/20 15:24 AW (Rec: 10/09/20 15:38 AW [email or web address]) Physical Therapy Assessment Rehab Potential Rehabilitation Potential Good Evaluation Complexity Number of Personal Factors/Comorbidities 3 or More Number of Body Systems Impaired 3 Clinical Presentation at Evaluation Evolving Impairments Impairments Activity Tolerance,Balance, Coordination,Functional Activities,Functional Mobility ,Gait,Pain,Posture,ROM,Soft Tissue Mobility,Strength, Transfers Other Impairments Personal factors include changing cognition, reluctance to take PD medication, concerns about his voice and asking Shi to speak for him occ. Body systems affected include musculoskeletal, neurological, cardiac and cognitive. His clinical presentation is evolving. Other Concerns Fall Risk Yes Goals 4 Customer Project Manager Goal (LTG) Pt will perform WNLs on a standardized balance test to decrease fall risk by 11/11/20. LTG Duration 16 treatments 3 Penitentiary Goal (LTG) Pt will perform at least 16 reps sit to stand without UE support in 30 sec to improve functional balance and strength by 11/11/20. LTG Duration 16 treatments 2 Penitentiary Goal (LTG) Pt will gait train at least 1600 feet in 6 minutes without AD and performing cognitive task at least 3' to improve community ambulation by . LTG Duration 16 treatments 1 Penitentiary Goal (LTG) Pt will perform BIG exercises and functional tasks BID to improve amplitude and balance by 11/11/20. LTG Duration 16 treatments Assessment Summary Assessment Pt has improved performance of all exercises and is observed self-correcting without verbal cues on several occasions. Introduced handwriting work today and plan to continue with blank page for now before attempting to transfer to smaller scale work such as writing checks. Physical Therapy Plan Frequency and Duration Frequency of Treatment 16 treatments Duration of Treatment 16 treatments Plan of Care Start Date 10/03/20 Plan of Care End Date 11/11/20 Therapeutic Interventions Therapeutic Interventions Balance Training,Canalithic Repositioning,Coordination Training,Gait Training,Home Exercise Program,Neuromuscular Re-education,Patient/ Caregiver Education,Self-Care/ Home Management,Therapeutic Activities,Therapeutic Exercises Modalities Cold Pack/Ice Massage,Hot Packs Other Referrals/Consults Referrals/Consults Recommended Follow-up with neurologist about starting recommended PD medication, swallowing test Next Visit Focus/Plan Next Note Type Treatment Note Next Visit Plan BIG exercises, sweatshirt, check writing, BIG walking, car transfers?
--- NOTE | 2020-10-10 15:33 | PT.OTN ---
Current Diagnoses Parkinson's disease (10/10/20) Physical Therapy Treatment Note PT-OP-A Visit Information Start: 10/01/20 15:11 Freq: Status: Active Protocol: Document 10/10/20 14:15 MB (Rec: 10/10/20 15:22 MB [id number]) Out-Patient Physical Therapy Visit Information Visit Information Visit Type Treatment Note Visit Note Pt wears crocks to treatment and PT re-ed him that he needs to wear lace up shoes for BIG walking and exercises Visit Start Time 14:15 Visit Stop Time 15:15 Total Visit Minutes 60 Visit Number 5 PT-OP-B Current Condition Start: 10/01/20 15:11 Freq: Status: Active Protocol: Document 10/03/20 14:16 MB (Rec: 10/03/20 14:52 MB [id number]) Current Condition History of Current Condition Onset Date May 2020 Current Complaints Wooziness, right UE pain and decreased function, cognitive and voice change History of Current Condition 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 Pt lives with his significant other, Shi, and their 13 y/o dog. They have an apartment and also live on a boat that is easy to get on and off of. He denies falls. There are 10 [address] to [address] apartment. He drives. Pt 's diagnosis is new and was given in May 2020. He had a right shoulder issue and when he went to his doctor, he ask him to walk and then his doctor sent him to a neurologist. He had a MRI 6 weeks ago and the memory part was reduced. Pt was put on substitute Aricept. He is supposed to notice something different as he has been on it for six weeks. He has not started Carbidopa Levodopa yet and is concerned about it and taking pills in general. Pt diagnosed with aortic stenosis in April 2019. He is taking a statin. He reports B calf cramping. Further PMH includes HTN, mild dyslipidemia. Pt states that he is spitting a lot. He has thick, cleared mucus that is hard to clear. This keeps hiim up a lot at night. Pt drinks 2 cups of caffeinated coffee a day, 1-2 bottles of water, 1 glass of wine a night. Treatment Goals Patient/Caregiver Goals Pt and Shi would like for pt to be able to take charge of his health and stay active until his 90s. Prior Functional Status Baseline Function- ADL's Independent Baseline Function- Mobility Independent PT-OP-C Subjective Start: 10/01/20 15:11 Freq: Status: Active Protocol: Document 10/10/20 14:15 MB (Rec: 10/10/20 15:22 MB [id number]) OP-PT Subjective Patient Comments Patient Comments Pt states that he didn't do BIG exercises this morning. He wears crocks and PT ed him that he should not wear crocks to future appointments and that he should wear lace up shoes. He agrees. PT-OP-G Mobility & Gait Start: 10/01/20 15:11 Freq: Status: Active Protocol: Document 10/03/20 14:16 MB (Rec: 10/03/20 16:12 MB [id number]) OP Mobility Evaluation Bed Mobility Rolling I Supine to and from Sit I Transfers Sit to Stand I, 14 reps sit to welder machine operator 30 sec Bed to Chair Transfers I OP Gait Assessment Gait Gait Assistance Required: Independent Distance (Feet) 50 Able to Maintain Weight Bearing Status Yes During Gait Assistive Devices Assistive Device None Orthotic/Prosthetic Devices or Brace: No Gait Deviations General Gait Pattern Decreased Feet Clearance, Flexed Trunk Factors Limiting Gait Function Factors Limiting Gait Function Incoordination,Limited Range of Motion,Pain,Poor Balance Comments Gait Comments Forward, flexed posture with short steps and 1 episode of not clearing right foot with gait, little right UE arm swing with gait, kick steps that are mildly festinating PT-OP-H Neuro Start: 10/01/20 15:11 Freq: Status: Active Protocol: Document 10/03/20 14:16 MB (Rec: 10/03/20 16:12 MB [id number]) Coordination Evaluation Upper Extremity Tests Left Finger to Nose Test Minimal Impairment Pronation/Supination Test Minimal Impairment Right Finger to Nose Test Minimal Impairment Pronation/Supination Test Moderate Impairment Lower Extremity Tests Left Foot Tapping Test Minimal Impairment Right Foot Tapping Test Moderate Impairment Comments Coordination Comments Pt performs foot tapping on opposite side of other foot for LE test Vital Signs Comments Vital Signs Comments Orthostatic assessment: BP and HR in LUE: supine 102/68; standing 111/78, 77; standing 1' 103/73, 70; standing 2' 111 /80, 78 PT-OP-K Range of Motion Start: 10/01/20 15:11 Freq: Status: Active Protocol: Document 10/03/20 14:16 MB (Rec: 10/03/20 16:12 MB [id number]) Shoulder Goniometric Range of Motion Shoulder ROM Limitations Comments Left shoulder ROM is functional. Right shoulder flexion and abduction is reduced to 90 deg both PT-OP-M Strength Start: 10/01/20 15:11 Freq: Status: Active Protocol: Document 10/03/20 14:16 MB (Rec: 10/03/20 16:12 MB [id number]) Shoulder Strength Shoulder Manual Muscle Testing Left Flexion 5 Normal Right Comments Deferred d/t painful and limited AROM Elbow/Forearm Strength Elbow and Forearm Manual Muscle Testing Left Flexion (C6) 5 Normal Right Flexion (C6) 5 Normal Hip Strength Hip Manual Muscle Testing B Flexion (L2) 5 Normal Knee Strength Knee Manual Muscle Testing B Extension (L3) 5 Normal Ankle/Foot Strength Ankle and Foot Manual Muscle Testing B Dorsiflexion (L4) 5 Normal Toe Strength Toe Manual Muscle Testing Left Great Toe Extension 5 Normal Right Great Toe Extension 5 Normal PT-OP-Q Treatments Start: 10/01/20 15:11 Freq: Status: Active Protocol: Document 10/10/20 14:15 MB (Rec: 10/10/20 15:22 MB [id number]) Therapeutic Exercises Sitting Exercises Floor to ceiling Equipment Used Inside, teal chair with blue cushion Reps/Minutes 10 reps Comments Cues to count and for BIG arm elevation Side to side Side bilateral Equipment Used Inside, teal chair with blue cushion Reps/Minutes 5 reps alternating Comments Cues and shaping for reach BIG sit to stand Equipment Used Inside, teal chair with blue cushion Reps/Minutes 10 reps Comments Cues for BIG reach forward Standing Exercises Side rock and reach Standing Exercise Name Inside on carpet Side bilateral Reps/Minutes 7 reps each side Comments Stop to practice and improve: cues for hands up, pivot on back foot only Forward rock and reach Standing Exercise Name Inside on carpet Side bilateral Reps/Minutes 10 reps x3 Comments Crocks may be a problem with this, trouble with BIG heel and arms Side step Standing Exercise Name Inside on carpet Side bilateral Reps/Minutes 10 reps alternating Comments Cues and demo Backward step Standing Exercise Name Inside on carpet Side bilateral Reps/Minutes 5 reps Comments Cues and demo for coordinating arms with stepping Forward step Standing Exercise Name Inside on carpet Side bilateral Reps/Minutes 10 reps alternating Comments Cues to not step as far forward and to work on effort, BIG feet Therapeutic Activity Therapeutic Activity handwriting Name handwriting Reps/Minutes 5' Comments BIG o on one page, cues to keep same size, second page, ed to perform a little smaller , also first name writing. Cues for BIG flow and holding G2 gel pen closer to distal phalanges and pt con't to have challenges with writing Donning and doffing sweatshirt Reps/Minutes 5' Comments If sweatshirt is drawn up first, 1' and then 53 sec to don and doff with cues for right arm in first, then left arm and head; left arm out first and then head and right arm. If timed with pt drawing up the back of shirt, 1 min 40 sec Self-Care/Home Management Treatment Education Other Education Pt states that he found out that his sister was dx with PD 3 years ago and didn't tell anyone. He states she did not have any bad side effects with her PD medication. PT encourages him to ask her what she is taking before his neurologist appointment. PT re -ed pt about footwear (x3 for reminder), increasing non- caffeinated fluid intake and need to perform BIG exercises 1x/day on therapy days and 2x/ day on non-therapy days. PT-OP-T Assessment and Plan Start: 10/01/20 15:11 Freq: Status: Active Protocol: Document 10/10/20 14:15 MB (Rec: 10/10/20 15:22 MB [id number]) Physical Therapy Assessment Rehab Potential Rehabilitation Potential Good Evaluation Complexity Number of Personal Factors/Comorbidities 3 or More Number of Body Systems Impaired 3 Clinical Presentation at Evaluation Evolving Impairments Impairments Activity Tolerance,Balance, Coordination,Functional Activities,Functional Mobility ,Gait,Pain,Posture,ROM,Soft Tissue Mobility,Strength, Transfers Other Impairments Personal factors include changing cognition, reluctance to take PD medication, concerns about his voice and asking Shi to speak for him occ. Body systems affected include musculoskeletal, neurological, cardiac and cognitive. His clinical presentation is evolving. Other Concerns Fall Risk Yes Goals 4 Car Knocker Goal (LTG) Pt will perform WNLs on a standardized balance test to decrease fall risk by 11/11/20. LTG Duration 16 treatments 3 Nursing Home Goal (LTG) Pt will perform at least 16 reps sit to stand without UE support in 30 sec to improve functional balance and strength by 11/11/20. LTG Duration 16 treatments 2 Car Knocker Goal (LTG) Pt will gait train at least 1600 feet in 6 minutes without AD and performing cognitive task at least 3' to improve community ambulation by . LTG Duration 16 treatments 1 Nursing Home Goal (LTG) Pt will perform BIG exercises and functional tasks BID to improve amplitude and balance by 11/11/20. LTG Duration 16 treatments Assessment Summary Assessment BP in LUE in standing after donning and doffing sweatshirt : 139/85, 92. Pt states that he has been feeling a little woozy. Re-ed on fluid intake. BIG walking deferred d/t crocks and trouble with BIG exercises and re-ed pt to wear lace up shoes to PT. He states that he will. He has not been doing exercises at home the last two morning. Con 't to re-ed his need to do exercises at home. Shoes, complaints of not feeling as well today and decreased home practice are barriers to PT today. Physical Therapy Plan Frequency and Duration Frequency of Treatment 16 treatments Duration of Treatment 16 treatments Plan of Care Start Date 10/03/20 Plan of Care End Date 11/11/20 Therapeutic Interventions Therapeutic Interventions Balance Training,Canalithic Repositioning,Coordination Training,Gait Training,Home Exercise Program,Neuromuscular Re-education,Patient/ Caregiver Education,Self-Care/ Home Management,Therapeutic Activities,Therapeutic Exercises Modalities Cold Pack/Ice Massage,Hot Packs Other Referrals/Consults Referrals/Consults Recommended Follow-up with neurologist about starting recommended PD medication, swallowing test Next Visit Focus/Plan Next Note Type Treatment Note Next Visit Plan BIG walking, sweatshirt, check writing, car transfers?
--- NOTE | 2020-10-14 15:35 | PT.OTN ---
Current Diagnoses Parkinson's disease (10/14/20) Physical Therapy Treatment Note PT-OP-A Visit Information Start: 10/01/20 15:11 Freq: Status: Active Protocol: Document 10/14/20 14:15 MB (Rec: 10/14/20 15:35 MB [id number]) Out-Patient Physical Therapy Visit Information Visit Information Visit Type Treatment Note Visit Start Time 14:15 Visit Stop Time 15:15 Total Visit Minutes 60 Visit Number 6 PT-OP-B Current Condition Start: 10/01/20 15:11 Freq: Status: Active Protocol: Document 10/03/20 14:16 MB (Rec: 10/03/20 14:52 MB [id number]) Current Condition History of Current Condition Onset Date May 2020 Current Complaints Wooziness, right UE pain and decreased function, cognitive and voice change History of Current Condition 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 Pt lives with his significant other, Shi, and their 13 y/o dog. They have an apartment and also live on a boat that is easy to get on and off of. He denies falls. There are 10 steps to the apartment. He drives. Pt 's diagnosis is new and was given in May 2020. He had a right shoulder issue and when he went to his doctor, he ask him to walk and then his doctor sent him to a neurologist. He had a MRI 6 weeks ago and the memory part was reduced. Pt was put on substitute Aricept. He is supposed to notice something different as he has been on it for six weeks. He has not started Carbidopa Levodopa yet and is concerned about it and taking pills in general. Pt diagnosed with aortic stenosis in April 2019. He is taking a statin. He reports B calf cramping. Further PMH includes HTN, mild dyslipidemia. Pt states that he is spitting a lot. He has thick, cleared mucus that is hard to clear. This keeps hiim up a lot at night. Pt drinks 2 cups of caffeinated coffee a day, 1-2 bottles of water, 1 glass of wine a night. Treatment Goals Patient/Caregiver Goals Pt and Shi would like for pt to be able to take charge of his health and stay active until his 90s. Prior Functional Status Baseline Function- ADL's Independent Baseline Function- Mobility Independent PT-OP-C Subjective Start: 10/01/20 15:11 Freq: Status: Active Protocol: Document 10/14/20 14:15 MB (Rec: 10/14/20 15:35 MB [id number]) OP-PT Subjective Patient Comments Patient Comments Pt states that he did his BIG exercises over the weekend but he did not do them everyday twice a day. PT-OP-G Mobility & Gait Start: 10/01/20 15:11 Freq: Status: Active Protocol: Document 10/03/20 14:16 MB (Rec: 10/03/20 16:12 MB [id number]) OP Mobility Evaluation Bed Mobility Rolling I Supine to and from Sit I Transfers Sit to Stand I, 14 reps sit to sprue cutting press operator 30 sec Bed to Chair Transfers I OP Gait Assessment Gait Gait Assistance Required: Independent Distance (Feet) 50 Able to Maintain Weight Bearing Status Yes During Gait Assistive Devices Assistive Device None Orthotic/Prosthetic Devices or Brace: No Gait Deviations General Gait Pattern Decreased Feet Clearance, Flexed Trunk Factors Limiting Gait Function Factors Limiting Gait Function Incoordination,Limited Range of Motion,Pain,Poor Balance Comments Gait Comments Forward, flexed posture with short steps and 1 episode of not clearing right foot with gait, little right UE arm swing with gait, kick steps that are mildly festinating PT-OP-H Neuro Start: 10/01/20 15:11 Freq: Status: Active Protocol: Document 10/03/20 14:16 MB (Rec: 10/03/20 16:12 MB [id number]) Coordination Evaluation Upper Extremity Tests Left Finger to Nose Test Minimal Impairment Pronation/Supination Test Minimal Impairment Right Finger to Nose Test Minimal Impairment Pronation/Supination Test Moderate Impairment Lower Extremity Tests Left Foot Tapping Test Minimal Impairment Right Foot Tapping Test Moderate Impairment Comments Coordination Comments Pt performs foot tapping on opposite side of other foot for LE test Vital Signs Comments Vital Signs Comments Orthostatic assessment: BP and HR in LUE: supine 102/68; standing 111/78, 77; standing 1' 103/73, 70; standing 2' 111 /80, 78 PT-OP-K Range of Motion Start: 10/01/20 15:11 Freq: Status: Active Protocol: Document 10/03/20 14:16 MB (Rec: 10/03/20 16:12 MB [id number]) Shoulder Goniometric Range of Motion Shoulder ROM Limitations Comments Left shoulder ROM is functional. Right shoulder flexion and abduction is reduced to 90 deg both PT-OP-M Strength Start: 10/01/20 15:11 Freq: Status: Active Protocol: Document 10/03/20 14:16 MB (Rec: 10/03/20 16:12 MB [id number]) Shoulder Strength Shoulder Manual Muscle Testing Left Flexion 5 Normal Right Comments Deferred d/t painful and limited AROM Elbow/Forearm Strength Elbow and Forearm Manual Muscle Testing Left Flexion (C6) 5 Normal Right Flexion (C6) 5 Normal Hip Strength Hip Manual Muscle Testing B Flexion (L2) 5 Normal Knee Strength Knee Manual Muscle Testing B Extension (L3) 5 Normal Ankle/Foot Strength Ankle and Foot Manual Muscle Testing B Dorsiflexion (L4) 5 Normal Toe Strength Toe Manual Muscle Testing Left Great Toe Extension 5 Normal Right Great Toe Extension 5 Normal PT-OP-Q Treatments Start: 10/01/20 15:11 Freq: Status: Active Protocol: Document 10/14/20 14:15 MB (Rec: 10/14/20 15:35 MB [id number]) Therapeutic Exercises Sitting Exercises Floor to ceiling Equipment Used Inside, teal chair Reps/Minutes 6 reps Comments Cues to count and for BIG arm elevation Side to side Side bilateral Equipment Used Inside, teal chair Reps/Minutes 6 reps alternating Comments Cues and shaping for reach BIG sit to stand Equipment Used Inside, teal chair Reps/Minutes 10 reps Comments Cues for BIG reach forward Standing Exercises Side rock and reach Standing Exercise Name Inside on carpet Side bilateral Reps/Minutes 10 reps each side Comments Multiple stops for cues for form for arms and legs: pivot on back foot only Forward rock and reach Standing Exercise Name Inside on carpet Side bilateral Equipment Used Mirror Reps/Minutes 10 reps x2 Comments Ongoing cues for BIG right arm extension and foot movement Side step Standing Exercise Name Inside on carpet Side bilateral Reps/Minutes 10 reps alternating Comments Improvement today Backward step Standing Exercise Name Inside on carpet Side bilateral Reps/Minutes 10 reps Comments Cues and demo for form Forward step Standing Exercise Name Inside on carpet Side bilateral Equipment Used Mirror Reps/Minutes 10 reps alternating Comments Cues to not step as far forward and to work on effort, BIG feet Gait Training Gait Activity BIG gait Level of Assistance Cues and demo Surface Carpet, tile, inside steps, outside, sidewalk Distance/Duration 25' Treatment Focus Big right arm swing, keep up bridgette Comments CW circling around gym and in hallway so that pt can pass big mirror on the right to view his right arm swing. He improves with arm swing before approaching mirror and then bridgette decreases after passes mirror and arm swing reduces. Cues for arm swing with ascending many steps in building outside clinic. Arm swing and bridgette decrease with conversation. There appears to be a cognitive component to trouble with task . Self-Care/Home Management Treatment Education Other Education Ongoing ed pt in his part in BIG program: BIG exercises x1 on therapy days and x2 on non- therapy days, ed in donning and donning of sweatshirt with big technique when doing BIG exercises, ed in BIG walking at least once a day. Ed to ask Shi to come into PT next treatment date PT-OP-T Assessment and Plan Start: 10/01/20 15:11 Freq: Status: Active Protocol: Document 10/14/20 14:15 MB (Rec: 10/14/20 15:35 MB [id number]) Physical Therapy Assessment Rehab Potential Rehabilitation Potential Good Evaluation Complexity Number of Personal Factors/Comorbidities 3 or More Number of Body Systems Impaired 3 Clinical Presentation at Evaluation Evolving Impairments Impairments Activity Tolerance,Balance, Coordination,Functional Activities,Functional Mobility ,Gait,Pain,Posture,ROM,Soft Tissue Mobility,Strength, Transfers Other Impairments Personal factors include changing cognition, reluctance to take PD medication, concerns about his voice and asking Shi to speak for him occ. Body systems affected include musculoskeletal, neurological, cardiac and cognitive. His clinical presentation is evolving. Other Concerns Fall Risk Yes Goals 4 Long-Term Goal (LTG) Pt will perform WNLs on a standardized balance test to decrease fall risk by 11/11/20. LTG Duration 16 treatments 3 Band Maker Goal (LTG) Pt will perform at least 16 reps sit to stand without UE support in 30 sec to improve functional balance and strength by 11/11/20. LTG Duration 16 treatments 2 Band Maker Goal (LTG) Pt will gait train at least 1600 feet in 6 minutes without AD and performing cognitive task at least 3' to improve community ambulation by . LTG Duration 16 treatments 1 Long-Term Goal (LTG) Pt will perform BIG exercises and functional tasks BID to improve amplitude and balance by 11/11/20. LTG Duration 16 treatments Assessment Summary Assessment Pt has decreased recall of proper performance of many BIG exercises and PT communicates to pt that PT can tell that he has not been performing exercises as much as he should at home. PT re-ed pt on his part in doing BIG exercises at home to ensure carryover and benefits of exercises to improve right arm swing, amplitude and balance. He con' t with trouble with right arm swing. Physical Therapy Plan Frequency and Duration Frequency of Treatment 16 treatments Duration of Treatment 16 treatments Plan of Care Start Date 10/03/20 Plan of Care End Date 11/11/20 Therapeutic Interventions Therapeutic Interventions Balance Training,Canalithic Repositioning,Coordination Training,Gait Training,Home Exercise Program,Neuromuscular Re-education,Patient/ Caregiver Education,Self-Care/ Home Management,Therapeutic Activities,Therapeutic Exercises Modalities Cold Pack/Ice Massage,Hot Packs Other Referrals/Consults Referrals/Consults Recommended Follow-up with neurologist about starting recommended PD medication, swallowing test Next Visit Focus/Plan Next Note Type Treatment Note Next Visit Plan BIG walking, sweatshirt, check writing, car transfers?
--- NOTE | 2020-10-16 16:39 | PT.OTN ---
Current Diagnoses Parkinson's disease (10/16/20) Physical Therapy Treatment Note PT-OP-A Visit Information Start: 10/01/20 15:11 Freq: Status: Active Protocol: Document 10/16/20 15:15 AW (Rec: 10/16/20 15:16 AW [id number]) Out-Patient Physical Therapy Visit Information Visit Information Visit Type Treatment Note Visit Start Time 14:15 Visit Stop Time 15:15 Total Visit Minutes 60 Visit Number 7 Evaluation Information Evaluation Date 10/03/20 PT-OP-B Current Condition Start: 10/01/20 15:11 Freq: Status: Active Protocol: Document 10/03/20 14:16 MB (Rec: 10/03/20 14:52 MB [id number]) Current Condition History of Current Condition Onset Date May 2020 Current Complaints Wooziness, right UE pain and decreased function, cognitive and voice change History of Current Condition 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 Pt lives with his significant other, Shi, and their 13 y/o dog. They have an apartment and also live on a boat that is easy to get on and off of. He denies falls. There are 10 [address] to [address] apartment. He drives. Pt 's diagnosis is new and was given in May 2020. He had a right shoulder issue and when he went to his doctor, he ask him to walk and then his doctor sent him to a neurologist. He had a MRI 6 weeks ago and the memory part was reduced. Pt was put on substitute Aricept. He is supposed to notice something different as he has been on it for six weeks. He has not started Carbidopa Levodopa yet and is concerned about it and taking pills in general. Pt diagnosed with aortic stenosis in April 2019. He is taking a statin. He reports B calf cramping. Further PMH includes HTN, mild dyslipidemia. Pt states that he is spitting a lot. He has thick, cleared mucus that is hard to clear. This keeps hiim up a lot at night. Pt drinks 2 cups of caffeinated coffee a day, 1-2 bottles of water, 1 glass of wine a night. Treatment Goals Patient/Caregiver Goals Donny and Shi would like for pt to be able to take charge of his health and stay active until his 90s. Prior Functional Status Baseline Function- ADL's Independent Baseline Function- Mobility Independent PT-OP-C Subjective Start: 10/01/20 15:11 Freq: Status: Active Protocol: Document 10/16/20 15:15 AW (Rec: 10/16/20 15:16 AW [id number]) OP-PT Subjective Patient Comments Patient Comments Pt did exercises once yesterday and twice before therapy today. Has been using sit to stand technique for car transfers. PT-OP-G Mobility & Gait Start: 10/01/20 15:11 Freq: Status: Active Protocol: Document 10/03/20 14:16 MB (Rec: 10/03/20 16:12 MB [id number]) OP Mobility Evaluation Bed Mobility Rolling I Supine to and from Sit I Transfers Sit to Stand I, 14 reps sit to shipping assistant 30 sec Bed to Chair Transfers I OP Gait Assessment Gait Gait Assistance Required: Independent Distance (Feet) 50 Able to Maintain Weight Bearing Status Yes During Gait Assistive Devices Assistive Device None Orthotic/Prosthetic Devices or Brace: No Gait Deviations General Gait Pattern Decreased Feet Clearance, Flexed Trunk Factors Limiting Gait Function Factors Limiting Gait Function Incoordination,Limited Range of Motion,Pain,Poor Balance Comments Gait Comments Forward, flexed posture with short steps and 1 episode of not clearing right foot with gait, little right UE arm swing with gait, kick steps that are mildly festinating PT-OP-H Neuro Start: 10/01/20 15:11 Freq: Status: Active Protocol: Document 10/03/20 14:16 MB (Rec: 10/03/20 16:12 MB [id number]) Coordination Evaluation Upper Extremity Tests Left Finger to Nose Test Minimal Impairment Pronation/Supination Test Minimal Impairment Right Finger to Nose Test Minimal Impairment Pronation/Supination Test Moderate Impairment Lower Extremity Tests Left Foot Tapping Test Minimal Impairment Right Foot Tapping Test Moderate Impairment Comments Coordination Comments Pt performs foot tapping on opposite side of other foot for LE test Vital Signs Comments Vital Signs Comments Orthostatic assessment: BP and HR in LUE: supine 102/68; standing 111/78, 77; standing 1' 103/73, 70; standing 2' 111 /80, 78 PT-OP-K Range of Motion Start: 10/01/20 15:11 Freq: Status: Active Protocol: Document 10/03/20 14:16 MB (Rec: 10/03/20 16:12 MB [id number]) Shoulder Goniometric Range of Motion Shoulder ROM Limitations Comments Left shoulder ROM is functional. Right shoulder flexion and abduction is reduced to 90 deg both PT-OP-M Strength Start: 10/01/20 15:11 Freq: Status: Active Protocol: Document 10/03/20 14:16 MB (Rec: 10/03/20 16:12 MB [id number]) Shoulder Strength Shoulder Manual Muscle Testing Left Flexion 5 Normal Right Comments Deferred d/t painful and limited AROM Elbow/Forearm Strength Elbow and Forearm Manual Muscle Testing Left Flexion (C6) 5 Normal Right Flexion (C6) 5 Normal Hip Strength Hip Manual Muscle Testing B Flexion (L2) 5 Normal Knee Strength Knee Manual Muscle Testing B Extension (L3) 5 Normal Ankle/Foot Strength Ankle and Foot Manual Muscle Testing B Dorsiflexion (L4) 5 Normal Toe Strength Toe Manual Muscle Testing Left Great Toe Extension 5 Normal Right Great Toe Extension 5 Normal PT-OP-Q Treatments Start: 10/01/20 15:11 Freq: Status: Active Protocol: Document 10/16/20 15:15 AW (Rec: 10/16/20 16:39 AW [id number]) Therapeutic Exercises Sitting Exercises Floor to ceiling Equipment Used outside, mesh chair Reps/Minutes 8 reps Comments crisp movement Side to side Side bilateral Equipment Used outside, mesh chair Reps/Minutes 6 reps alternating Comments cues to remain seated throughout BIG sit to stand Equipment Used outside, mesh chair, park bench Reps/Minutes 8 reps x 2 Comments cues for bigger lean on descent Standing Exercises Side rock and reach Side bilateral Reps/Minutes 10 reps each side Comments cues to look for targets over shoulder to improve rotation Forward rock and reach Side bilateral Equipment Used outside Reps/Minutes 10 reps x2 Comments cues for BIG arms - flex and ext Side step Side bilateral Reps/Minutes 10 reps alternating Comments cues for increased rotation Backward step Side bilateral Reps/Minutes 10 reps Comments max cues for form, faded once rhythm established Forward step Side bilateral Reps/Minutes 10 reps alternating Comments good return step with loud stomp Therapeutic Activity Therapeutic Activity handwriting Name handwriting Reps/Minutes 5' Comments Pt wants to write HELP across page and does so with notable micrographia as approaches edge of page. Education to use flicks and BIG vacuum metalizer operator, to involve entire upper extremity in movement. Donning and doffing sweatshirt Reps/Minutes 2 reps Comments Pt needs cues for BIG arm thrust. Might benefit from cues to get angry? Gait Training Gait Activity BIG gait Level of Assistance Cues and demo Surface Carpet, tile, grass, concrete, stairs Distance/Duration 20' Treatment Focus Big right arm swing, keep up bridgette Comments Walked outside clinic and inside long hospital corridors with emphasis on right arm swing and bridgette. Pt loses amplitude when approaching narrow spaces and during distracting conversation. Self-Care/Home Management Treatment Education Other Education Discussed with pt and with Shi that pt should be doing exrx twice daily when not in clinic and once at home on clinic days. Encouraged Shi to attend a session in order to be able to reinforce concepts and homework at home. PT-OP-T Assessment and Plan Start: 10/01/20 15:11 Freq: Status: Active Protocol: Document 10/16/20 15:15 AW (Rec: 10/16/20 16:39 AW [id number]) Physical Therapy Assessment Rehab Potential Rehabilitation Potential Good Evaluation Complexity Number of Personal Factors/Comorbidities 3 or More Number of Body Systems Impaired 3 Clinical Presentation at Evaluation Evolving Impairments Impairments Activity Tolerance,Balance, Coordination,Functional Activities,Functional Mobility ,Gait,Pain,Posture,ROM,Soft Tissue Mobility,Strength, Transfers Other Impairments Personal factors include changing cognition, reluctance to take PD medication, concerns about his voice and asking Shi to speak for him occ. Body systems affected include musculoskeletal, neurological, cardiac and cognitive. His clinical presentation is evolving. Other Concerns Fall Risk Yes Goals 4 Typesetters Printer Goal (LTG) Pt will perform WNLs on a standardized balance test to decrease fall risk by 11/11/20. LTG Duration 16 treatments 3 Typesetters Printer Goal (LTG) Pt will perform at least 16 reps sit to stand without UE support in 30 sec to improve functional balance and strength by 11/11/20. LTG Duration 16 treatments 2 Longterm Goal (LTG) Pt will gait train at least 1600 feet in 6 minutes without AD and performing cognitive task at least 3' to improve community ambulation by . LTG Duration 16 treatments 1 Typesetters Printer Goal (LTG) Pt will perform BIG exercises and functional tasks BID to improve amplitude and balance by 11/11/20. LTG Duration 16 treatments Assessment Summary Assessment Pt continues to need demo and cues for nearly all exercises. His SO, Shi, was present for end of session and agreed to attend a future session - possibly tomorrow - to help improve carryover at home. Physical Therapy Plan Frequency and Duration Frequency of Treatment 16 treatments Duration of Treatment 16 treatments Plan of Care Start Date 10/03/20 Plan of Care End Date 11/11/20 Therapeutic Interventions Therapeutic Interventions Balance Training,Canalithic Repositioning,Coordination Training,Gait Training,Home Exercise Program,Neuromuscular Re-education,Patient/ Caregiver Education,Self-Care/ Home Management,Therapeutic Activities,Therapeutic Exercises Modalities Cold Pack/Ice Massage,Hot Packs Other Referrals/Consults Referrals/Consults Recommended Follow-up with neurologist about starting recommended PD medication, swallowing test Next Visit Focus/Plan Next Note Type Treatment Note Next Visit Plan BIG walking, sweatshirt, check writing, car transfers?
--- NOTE | 2020-10-17 15:34 | PT.OTN ---
Current Diagnoses Parkinson's disease (10/17/20) Physical Therapy Treatment Note PT-OP-A Visit Information Start: 10/01/20 15:11 Freq: Status: Active Protocol: Document 10/17/20 14:15 MB (Rec: 10/17/20 15:34 MB [id number]) Out-Patient Physical Therapy Visit Information Visit Information Visit Type Treatment Note Visit Start Time 14:15 Visit Stop Time 15:15 Total Visit Minutes 60 Visit Number 8 PT-OP-B Current Condition Start: 10/01/20 15:11 Freq: Status: Active Protocol: Document 10/03/20 14:16 MB (Rec: 10/03/20 14:52 MB [id number]) Current Condition History of Current Condition Onset Date May 2020 Current Complaints Wooziness, right UE pain and decreased function, cognitive and voice change History of Current Condition 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 Pt lives with his significant other, Shi, and their 13 y/o dog. They have an apartment and also live on a boat that is easy to get on and off of. He denies falls. There are 10 steps to the apartment. He drives. Pt 's diagnosis is new and was given in May 2020. He had a right shoulder issue and when he went to his doctor, he ask him to walk and then his doctor sent him to a neurologist. He had a MRI 6 weeks ago and the memory part was reduced. Pt was put on substitute Aricept. He is supposed to notice something different as he has been on it for six weeks. He has not started Carbidopa Levodopa yet and is concerned about it and taking pills in general. Pt diagnosed with aortic stenosis in April 2019. He is taking a statin. He reports B calf cramping. Further PMH includes HTN, mild dyslipidemia. Pt states that he is spitting a lot. He has thick, cleared mucus that is hard to clear. This keeps hiim up a lot at night. Pt drinks 2 cups of caffeinated coffee a day, 1-2 bottles of water, 1 glass of wine a night. Treatment Goals Patient/Caregiver Goals Pt and Shi would like for pt to be able to take charge of his health and stay active until his 90s. Prior Functional Status Baseline Function- ADL's Independent Baseline Function- Mobility Independent PT-OP-C Subjective Start: 10/01/20 15:11 Freq: Status: Active Protocol: Document 10/17/20 14:15 MB (Rec: 10/17/20 15:34 MB [id number]) OP-PT Subjective Patient Comments Patient Comments Shi attends appointment with pt. They verbalize understanding of doing BIG exercises and functional tasks 1x/day on PT days and 2x/day on non-PT days. They verbalize understanding of BIG walking as well. They state that pt sees the neurologist on Wednesday . Pt c/o occ sharp pain in right shoulder and ed in benefits of PT for right shoulder pain after BIG therapy is d/cd. PT-OP-G Mobility & Gait Start: 10/01/20 15:11 Freq: Status: Active Protocol: Document 10/03/20 14:16 MB (Rec: 10/03/20 16:12 MB [id number]) OP Mobility Evaluation Bed Mobility Rolling I Supine to and from Sit I Transfers Sit to Stand I, 14 reps sit to air traffic instructor 30 sec Bed to Chair Transfers I OP Gait Assessment Gait Gait Assistance Required: Independent Distance (Feet) 50 Able to Maintain Weight Bearing Status Yes During Gait Assistive Devices Assistive Device None Orthotic/Prosthetic Devices or Brace: No Gait Deviations General Gait Pattern Decreased Feet Clearance, Flexed Trunk Factors Limiting Gait Function Factors Limiting Gait Function Incoordination,Limited Range of Motion,Pain,Poor Balance Comments Gait Comments Forward, flexed posture with short steps and 1 episode of not clearing right foot with gait, little right UE arm swing with gait, kick steps that are mildly festinating PT-OP-H Neuro Start: 10/01/20 15:11 Freq: Status: Active Protocol: Document 10/03/20 14:16 MB (Rec: 10/03/20 16:12 MB [id number]) Coordination Evaluation Upper Extremity Tests Left Finger to Nose Test Minimal Impairment Pronation/Supination Test Minimal Impairment Right Finger to Nose Test Minimal Impairment Pronation/Supination Test Moderate Impairment Lower Extremity Tests Left Foot Tapping Test Minimal Impairment Right Foot Tapping Test Moderate Impairment Comments Coordination Comments Pt performs foot tapping on opposite side of other foot for LE test Vital Signs Comments Vital Signs Comments Orthostatic assessment: BP and HR in LUE: supine 102/68; standing 111/78, 77; standing 1' 103/73, 70; standing 2' 111 /80, 78 PT-OP-K Range of Motion Start: 10/01/20 15:11 Freq: Status: Active Protocol: Document 10/03/20 14:16 MB (Rec: 10/03/20 16:12 MB [id number]) Shoulder Goniometric Range of Motion Shoulder ROM Limitations Comments Left shoulder ROM is functional. Right shoulder flexion and abduction is reduced to 90 deg both PT-OP-M Strength Start: 10/01/20 15:11 Freq: Status: Active Protocol: Document 10/03/20 14:16 MB (Rec: 10/03/20 16:12 MB [id number]) Shoulder Strength Shoulder Manual Muscle Testing Left Flexion 5 Normal Right Comments Deferred d/t painful and limited AROM Elbow/Forearm Strength Elbow and Forearm Manual Muscle Testing Left Flexion (C6) 5 Normal Right Flexion (C6) 5 Normal Hip Strength Hip Manual Muscle Testing B Flexion (L2) 5 Normal Knee Strength Knee Manual Muscle Testing B Extension (L3) 5 Normal Ankle/Foot Strength Ankle and Foot Manual Muscle Testing B Dorsiflexion (L4) 5 Normal Toe Strength Toe Manual Muscle Testing Left Great Toe Extension 5 Normal Right Great Toe Extension 5 Normal PT-OP-Q Treatments Start: 10/01/20 15:11 Freq: Status: Active Protocol: Document 10/17/20 14:15 MB (Rec: 10/17/20 15:34 MB [id number]) Therapeutic Exercises Sitting Exercises Floor to ceiling Equipment Used Teal chair and blue cushion, outside Reps/Minutes 5 reps Comments Cues for BIG right arm Side to side Side bilateral Equipment Used Teal chair and blue cushion, outside Reps/Minutes 6 reps alternating Comments Cues for BIG arm and leg, modify for right shoulder pain BIG sit to stand Equipment Used Teal chair and blue cushion, outside Reps/Minutes 10 reps Comments Cues to reach forward Standing Exercises Side rock and reach Standing Exercise Name Outside on sidewalk Side bilateral Reps/Minutes 10 reps with stop and practice Comments Practice with pivot with arms at side first, then add arms Forward rock and reach Standing Exercise Name Outside on sidewalk Side bilateral Equipment Used Look at reflection in windows Reps/Minutes 10 reps Comments Cues for BIG right arm and perfoms better with visual cues Side step Standing Exercise Name Outside on sidewalk Side bilateral Reps/Minutes 10 reps alternating Comments Cues to step BIG and look where stepping Backward step Standing Exercise Name Outside on sidewalk Side bilateral Reps/Minutes 10 reps Comments Cues for BIG right arm and crisper movements Forward step Standing Exercise Name Outside on sidewalk Side bilateral Reps/Minutes 10 reps alternating Comments Cues for BIG stance and crisp movements Therapeutic Activity Therapeutic Activity handwriting Name handwriting Reps/Minutes 5' Comments O and writing name and micrographia with increased time of writing and cues to stop and then make larger movements Donning and doffing sweatshirt Reps/Minutes 3' Comments Blue pullover shirt stretches a lot and pt has trouble performing as repeated task with BIG movement as the material gives with trying to pull it to move arm in and out BIG Gait Training Gait Activity BIG gait Level of Assistance Cues and demo Surface Sidewalk, grass and pavement Distance/Duration 15' Treatment Focus BIG right arm swing and keep up bridgette Comments Shi nearby and ed for cues for BIG right arm swing, especially with increased time walking and cognitive challenge of talking. Pt tends to lose speed with increased time walking and when not cued . Stopped to practice forward rock and reach and he can improve right arm extension PT-OP-T Assessment and Plan Start: 10/01/20 15:11 Freq: Status: Active Protocol: Document 10/17/20 14:15 MB (Rec: 10/17/20 15:34 MB [id number]) Physical Therapy Assessment Rehab Potential Rehabilitation Potential Good Evaluation Complexity Number of Personal Factors/Comorbidities 3 or More Number of Body Systems Impaired 3 Clinical Presentation at Evaluation Evolving Impairments Impairments Activity Tolerance,Balance, Coordination,Functional Activities,Functional Mobility ,Gait,Pain,Posture,ROM,Soft Tissue Mobility,Strength, Transfers Other Impairments Personal factors include changing cognition, reluctance to take PD medication, concerns about his voice and asking Shi to speak for him occ. Body systems affected include musculoskeletal, neurological, cardiac and cognitive. His clinical presentation is evolving. Other Concerns Fall Risk Yes Goals 4 Still Operator Brandy Goal (LTG) Pt will perform WNLs on a standardized balance test to decrease fall risk by 11/11/20. LTG Duration 16 treatments 3 Penitentiary Goal (LTG) Pt will perform at least 16 reps sit to stand without UE support in 30 sec to improve functional balance and strength by 11/11/20. LTG Duration 16 treatments 2 Still Operator Brandy Goal (LTG) Pt will gait train at least 1600 feet in 6 minutes without AD and performing cognitive task at least 3' to improve community ambulation by . LTG Duration 16 treatments 1 Penitentiary Goal (LTG) Pt will perform BIG exercises and functional tasks BID to improve amplitude and balance by 11/11/20. LTG Duration 16 treatments Assessment Summary Assessment Sih available for BIG exercise, therapeutic activity and walking training today. Improvement with exercises today and BIG right arm swing (extension) with forward rock and reach when looking in reflection in window. Similarly, stopped walking occ to practice forward rock and reach and this is helpful for BiG arm swing. Physical Therapy Plan Frequency and Duration Frequency of Treatment 16 treatments Duration of Treatment 16 treatments Plan of Care Start Date 10/03/20 Plan of Care End Date 11/11/20 Therapeutic Interventions Therapeutic Interventions Balance Training,Canalithic Repositioning,Coordination Training,Gait Training,Home Exercise Program,Neuromuscular Re-education,Patient/ Caregiver Education,Self-Care/ Home Management,Therapeutic Activities,Therapeutic Exercises Modalities Cold Pack/Ice Massage,Hot Packs Other Referrals/Consults Referrals/Consults Recommended Follow-up with neurologist about starting recommended PD medication, swallowing test. PT order to treat right shoulder after BIG (Shi to ask neurologist) Next Visit Focus/Plan Next Note Type Treatment Note Next Visit Plan BIG walking, sweatshirt, writing
--- NOTE | 2020-10-22 14:37 | PT-OP ANOTE ---
Pt arrives to treatment. He reports that his doctor's appointment in [place] did not go like it should have yesterday. He was expecting to see the ecological modeler and brain doctor and his appointment was actually for tomorrow. He was able to get a prescription for carbidopa levodopa that he will start tomorrow. He is unable to report dosage and frequency. He would like to postpone today's BIG appointment as he is exhausted and is agreeable to adding an appointment to the end of treatment course and front office does this today. He did BIG exercises this morning.
--- NOTE | 2020-10-23 14:12 | PT-IP ANOTE ---
Pt arrived and spoke with front desk monitor staff, explaining that he had begun taking carbidopa levodopa and was still feeling out of sorts. He was not up to treatment today so cancelled same day and added another treatment session to end of current POC.
--- NOTE | 2020-10-24 12:15 | PT.OPDS ---
Current Diagnoses Parkinson's disease (10/17/20) Visit Care Team Role Provider Type Lenard Nance MD Primary Care Provider Physician Specialty: Family Practice Address: [address], [address], [place], [address] Email: [email or web address] Mainor Mckenna MD Attending Provider Non-Staff Referring Provider Specialty: Neurology Address: [address] [place] [address] [id number], [place], [address] Email: Visit Number Visit Number 8 Discharge Summary PT-OP-B Current Condition Start: 10/01/20 15:11 Freq: Status: Active Protocol: Document 10/03/20 14:16 MB (Rec: 10/03/20 14:52 MB [id number]) Current Condition History of Current Condition Onset Date May 2020 Current Complaints Wooziness, right UE pain and decreased function, cognitive and voice change History of Current Condition 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 Pt lives with his significant other, Shi, and their 13 y/o dog. They have an apartment and also live on a boat that is easy to get on and off of. He denies falls. There are 10 steps to the apartment. He drives. Pt 's diagnosis is new and was given in May 2020. He had a right shoulder issue and when he went to his doctor, he ask him to walk and then his doctor sent him to a neurologist. He had a MRI 6 weeks ago and the memory part was reduced. Pt was put on substitute Aricept. He is supposed to notice something different as he has been on it for six weeks. He has not started Carbidopa Levodopa yet and is concerned about it and taking pills in general. Pt diagnosed with aortic stenosis in April 2019. He is taking a statin. He reports B calf cramping. Further PMH includes HTN, mild dyslipidemia. Pt states that he is spitting a lot. He has thick, cleared mucus that is hard to clear. This keeps hiim up a lot at night. Pt drinks 2 cups of caffeinated coffee a day, 1-2 bottles of water, 1 glass of wine a night. Treatment Goals Patient/Caregiver Goals Pt and Shi would like for pt to be able to take charge of his health and stay active until his 90s. Prior Functional Status Baseline Function- ADL's Independent Baseline Function- Mobility Independent PT-OP-C Subjective Start: 10/01/20 15:11 Freq: Status: Active Protocol: Document 10/17/20 14:15 MB (Rec: 10/17/20 15:34 MB [id number]) OP-PT Subjective Patient Comments Patient Comments Shi attends appointment with pt. They verbalize understanding of doing BIG exercises and functional tasks 1x/day on PT days and 2x/day on non-PT days. They verbalize understanding of BIG walking as well. They state that pt sees the neurologist on Wednesday . Pt c/o occ sharp pain in right shoulder and ed in benefits of PT for right shoulder pain after BIG therapy is d/cd. PT-OP-G Mobility & Gait Start: 10/01/20 15:11 Freq: Status: Active Protocol: Document 10/03/20 14:16 MB (Rec: 10/03/20 16:12 MB [id number]) OP Mobility Evaluation Bed Mobility Rolling I Supine to and from Sit I Transfers Sit to Stand I, 14 reps sit to otter trawler boatswain 30 sec Bed to Chair Transfers I OP Gait Assessment Gait Gait Assistance Required: Independent Distance (Feet) 50 Able to Maintain Weight Bearing Status Yes During Gait Assistive Devices Assistive Device None Orthotic/Prosthetic Devices or Brace: No Gait Deviations General Gait Pattern Decreased Feet Clearance, Flexed Trunk Factors Limiting Gait Function Factors Limiting Gait Function Incoordination,Limited Range of Motion,Pain,Poor Balance Comments Gait Comments Forward, flexed posture with short steps and 1 episode of not clearing right foot with gait, little right UE arm swing with gait, kick steps that are mildly festinating PT-OP-H Neuro Start: 10/01/20 15:11 Freq: Status: Active Protocol: Document 10/03/20 14:16 MB (Rec: 10/03/20 16:12 MB [id number]) Coordination Evaluation Upper Extremity Tests Left Finger to Nose Test Minimal Impairment Pronation/Supination Test Minimal Impairment Right Finger to Nose Test Minimal Impairment Pronation/Supination Test Moderate Impairment Lower Extremity Tests Left Foot Tapping Test Minimal Impairment Right Foot Tapping Test Moderate Impairment Comments Coordination Comments Pt performs foot tapping on opposite side of other foot for LE test Vital Signs Comments Vital Signs Comments Orthostatic assessment: BP and HR in LUE: supine 102/68; standing 111/78, 77; standing 1' 103/73, 70; standing 2' 111 /80, 78 PT-OP-K Range of Motion Start: 10/01/20 15:11 Freq: Status: Active Protocol: Document 10/03/20 14:16 MB (Rec: 10/03/20 16:12 MB [id number]) Shoulder Goniometric Range of Motion Shoulder ROM Limitations Comments Left shoulder ROM is functional. Right shoulder flexion and abduction is reduced to 90 deg both PT-OP-M Strength Start: 10/01/20 15:11 Freq: Status: Active Protocol: Document 10/03/20 14:16 MB (Rec: 10/03/20 16:12 MB [id number]) Shoulder Strength Shoulder Manual Muscle Testing Left Flexion 5 Normal Right Comments Deferred d/t painful and limited AROM Elbow/Forearm Strength Elbow and Forearm Manual Muscle Testing Left Flexion (C6) 5 Normal Right Flexion (C6) 5 Normal Hip Strength Hip Manual Muscle Testing B Flexion (L2) 5 Normal Knee Strength Knee Manual Muscle Testing B Extension (L3) 5 Normal Ankle/Foot Strength Ankle and Foot Manual Muscle Testing B Dorsiflexion (L4) 5 Normal Toe Strength Toe Manual Muscle Testing Left Great Toe Extension 5 Normal Right Great Toe Extension 5 Normal PT-OP-T Assessment and Plan Start: 10/01/20 15:11 Freq: Status: Active Protocol: Document 10/17/20 14:15 MB (Rec: 10/17/20 15:34 MB [id number]) Physical Therapy Assessment Rehab Potential Rehabilitation Potential Good Evaluation Complexity Number of Personal Factors/Comorbidities 3 or More Number of Body Systems Impaired 3 Clinical Presentation at Evaluation Evolving Impairments Impairments Activity Tolerance,Balance, Coordination,Functional Activities,Functional Mobility ,Gait,Pain,Posture,ROM,Soft Tissue Mobility,Strength, Transfers Other Impairments Personal factors include changing cognition, reluctance to take PD medication, concerns about his voice and asking Shi to speak for him occ. Body systems affected include musculoskeletal, neurological, cardiac and cognitive. His clinical presentation is evolving. Other Concerns Fall Risk Yes Goals 4 Fdc Goal (LTG) Pt will perform WNLs on a standardized balance test to decrease fall risk by 11/11/20. LTG Duration 16 treatments 3 Hat Designer Goal (LTG) Pt will perform at least 16 reps sit to stand without UE support in 30 sec to improve functional balance and strength by 11/11/20. LTG Duration 16 treatments 2 Hat Designer Goal (LTG) Pt will gait train at least 1600 feet in 6 minutes without AD and performing cognitive task at least 3' to improve community ambulation by . LTG Duration 16 treatments 1 Fdc Goal (LTG) Pt will perform BIG exercises and functional tasks BID to improve amplitude and balance by 11/11/20. LTG Duration 16 treatments Assessment Summary Assessment Shi available for BIG exercise, therapeutic activity and walking training today. Improvement with exercises today and BIG right arm swing (extension) with forward rock and reach when looking in reflection in window. Similarly, stopped walking occ to practice forward rock and reach and this is helpful for BiG arm swing. Physical Therapy Plan Frequency and Duration Frequency of Treatment 16 treatments Duration of Treatment 16 treatments Plan of Care Start Date 10/03/20 Plan of Care End Date 11/11/20 Therapeutic Interventions Therapeutic Interventions Balance Training,Canalithic Repositioning,Coordination Training,Gait Training,Home Exercise Program,Neuromuscular Re-education,Patient/ Caregiver Education,Self-Care/ Home Management,Therapeutic Activities,Therapeutic Exercises Modalities Cold Pack/Ice Massage,Hot Packs Other Referrals/Consults Referrals/Consults Recommended Follow-up with neurologist about starting recommended PD medication, swallowing test. PT order to treat right shoulder after BIG (Shi to ask neurologist) Discharge Physical Therapy Discharge Reasons Patient Request Discharge Comments This is third treatment in a row that pt has called d/t feeling off from medication changes. He asks to stop PT at this time. Will stop BIG PT and he will obtain another order and reschedule once his medications are working better . Will d/c PT. Next Visit Focus/Plan Next Note Type Treatment Note Next Visit Plan BIG walking, sweatshirt, writing
== END 2020-10-24 12:58 | disposition home or self-care (01) ==
LOC: PHYS 14:15
PROVIDERS: PCP Family Medicine; Referring Provider Psychiatry & Neurology Neurology; Visit Provider Psychiatry & Neurology Neurology
DX: G20 Parkinson's disease (principal)
CPT/HCPCS: 97110; 97116; 97162; 97530; 97535

== ENCOUNTER → 2021-05-13 16:44 | Outpatient (CLI) | payer MEDICARE, OTHER, SELFPAY ==
[2021-05-13 17:25] LABS: Add Manual Diff / Slide Review NO; Basophils Absolute Auto 0 /uL (0-100); Basophils Percent Auto 0.4 % (0-2); Eosinophils Absolute Auto 0 /uL (0-450); Eosinophils Percent Auto 0.5 % (2-4); Hematocrit 41.4 % (41-53); Lymphocytes Absolute Auto 1600 /uL (1100-4500); Mean Corpuscular HGB Conc 33.9 % (30-36); Mean Corpuscular Hemoglobin 30.2 PG (26-34); Mean Corpuscular Volume 89.1 fL (80-100); Monocytes Absolute Auto 700 /uL (0-900); Monocytes Percent Auto 10.4 % (3-14); Neutrophils Absolute Auto 4300 /uL (1500-7000); Neutrophils Percent Auto 64.7 % (50-75); Platelet Count 209 X10^3/uL (150-400); Red Blood Cell Count 4.64 X10^6/uL (4.5-5.9); Red Cell Distribution Width 13.3 % (11.6-14.8); White Blood Cell Count 6.6 X10^3/uL (4.5-11.0)
== END ==
PROVIDERS: PCP Family Medicine; Referring Provider Family Medicine; Visit Provider Family Medicine
DX: I10 Essential (primary) hypertension (principal)
CPT/HCPCS: 36415; 85025

== ENCOUNTER 2021-07-01 10:30 | Outpatient (RCR) | payer MEDICARE, OTHER, SELFPAY ==
--- NOTE | 2021-05-26 16:30 | ST.OPPOC ---
Physical, Occupational & Speech Therapy At [facility] Visit Care Team Role Provider Type Mainor Mckenna MD Referring Provider Non-Staff Address: [address] [place], [place] [address], [place], [address] Lenard Nance MD Attending Provider Physician Family Provider Primary Care Provider Address: [address] [place] [address], [address], [place], [address] Speech Pathology Plan of Care General Information Kayden is a 75 year old male who was diagnosed with Parkinson's about 1 year ago and experiences a slight right hand tremor. He experienced increased hoarseness for about 1 year prior to the diagnosis. 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 Kayden reported he is frequently asked to repeat himself and will often have his fiance speak for him. His fiance reported he was a very outgoing and social person, but has been less social since his voice has decreased in quality and volume. Plan of Care Dates 05/26/2021 - 06/27/2021 [facility]pc Goals 1. Kayden will perform structured voice tasks ( e.g., sustained phonation, pitch range, reading tasks) with voicing, including loudness levels, WNL to increase speech intelligibility and good quality voice. 2. Kayden will produce spontaneous conversation with multiple conversation partners and in a variety of environments with loudness levels and vocal quality WNL in 80% of opportunities to increase speech intelligibility and maintain communicative independence and quality of life. 3. Kayden will demonstrate independence with home exercise program to promote carryover of treatment results to functional conversation tasks and maintain speech intelligibility and good quality voice in presence of a progressive disease. Electronically Signed by: KAILA Guardado 05/27/21 1112 Please Sign and Return: I have reviewed this Plan of Care and certify that the skilled therapy services above are required to meet the patient?s needs. Physician Signature Date Printed Name and Credentials Clinical Instructor Signature Printed Name and Credentials
--- NOTE | 2021-05-26 16:30 | ST.OPIE ---
Visit Care Team Role Provider Type Mainor Mckenna MD Referring Provider Non-Staff Specialty: Neurology Address: [address] [place] [address] [facility], [place], [address] Email: Lenard Nance MD Attending Provider Physician Family Provider Primary Care Provider Specialty: Family Practice Address: [address] [place] [address], [id number] Email: [email or web address] Speech-Language Pathology Initial Evaluation SENIOR NET DEVELOPER ARCHITECT Voice Resonance Evaluation Start: 05/27/21 08:56 Freq: Status: Active Protocol: Document 05/26/21 16:30 ZS (Rec: 05/27/21 09:39 ZS [id number]) Voice and Resonance Assessment Session Time Visit Start Time 15:30 Visit Stop Time 16:30 Total Visit Minutes 60 Visit Information Visit Number Initial Evaluation Plan of Care Dates 05/26/2021 - 06/27/2021 Insurance Information Medicare Next Note Type Next Note Type Treatment Note Referral Referring Physician Dr. Mckenna Reason for Referral Referral for LSVT Loud for Parkinson's Setting Setting Outpatient Care Patient History General Information Kayden is a 75 year old male who was diagnosed with Parkinson's about 1 year ago and experiences a slight right hand tremor. He experienced increased hoarseness for about 1 year prior to the diagnosis . 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 Kayden reported he is frequently asked to repeat himself and will often have his fiance speak for him. His fiance reported he was a very outgoing and social person, but has been less social since his voice has decreased in quality and volume. 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 Oral Motor Assessment Source: [place] [employer]Gkjrnfvk-Vgzrol[employer] (AARON). Oral-Motor Eval Completed No Subjective Subjective Kayden arrived on time accompanied by his fiance, who was present for the session. Kayden was very personable, asking questions of the clinicians and making jokes. He presented with a breathy, strained, and rough vocal quality. Kayden was minimally aware of LSVT-Loud program and, once explained in greater details, agreeable with the program. - Laryngeal Performance S/Z Ratio S/Z Ratio 1.16 Functional for Speech Yes CAPE-V Overall Severity 50% Moderately-Severe Roughness 21% (inconsistent) Mild- Moderate Breathiness 49% Moderate Strain 41% in conversation (moderate) ; 84% in structured tasks ( Severe) Pitch 0% in conversation (WNL); 59% in structured tasks ( moderately-severe) Loudness 62% Moderately-Severe Normal Resonance? Yes Additional Features Diplophonia Other Features Observed Diplophonia and strain is worse in structured tasks. Maximum Phonation Time MPT Norms: Women (15-25) Men (25-35) Loudness (50-60 dB); Speaking Rate: Oral Reading of Sentences (190 Words Per Minute); Oral Reading of Paragraphs (160-170 WPM); Speaking Rate in Conversation (150-250 WPM) Maximum Phonation Time 16.3 seconds (62.5 dB, avg) Maximum Phonation Time Reduced Jitter/Shimmer Norms: Jitter (Less than or equal to 1.040% - Frequency) Norms: Shimmer (Less than or equal to 3.810% - Amplitude) Jitter 2.79% Shimmer 9.34% Pitch [place] Pitch [place] WNL Pitch [place] Comments 132-308.6 Hz, reduced control; vocal strain at high and low pitches Breath Support Speaks on Room Air Yes Voice Pitch Range Norms: Women (100-300 Hz) Men (70-250 Hz) Fundamental Frequency Norms: Women (Mean: 225 Hz; Range: 155-334 Hz) Men ( Mean: 128 Hz; Range: 85-196 Hz) Voice Pitch Pitch Breaks,Diplophonia Voice Loudness Moderately Soft/Quiet Voice Phonatory-based Quality Breathy,Hoarse,Pitch Breaks, Diplophonia Fundamental Frequency 148.6 Hz (WNL) Intensity 62 dB in conversation Paradoxical Vocal Fold Movement No Indications Resonance Nasal Resonance Normal Oral Resonance Normal Therapeutic Techniques Therapy Tactics Increase Loudness Findings Findings Mild Impairment Observations Kayden presents with mild dyphonia characterized by moderately-severe vocal roughness, diplophonia which worsened in structured tasks, increased strain with increased loudness and in structured tasks, and reduced loudness. Kayden is an excellent candidate for LSVT- Loud. Prognosis Rehabilitation Potential Excellent - Recommendations Treatment Recommended Yes Treatment Frequency/Duration 16 visits in 4 weeks, per LSVT -Loud protocol Therapy Recommendations LSVT-Loud Short Term Goals 1. Kayden will sustain phonation for 25 seconds with good quality voice at avg 80 dB to increase breath support for speech and vocal quality. 2. Kayden will produce pitch range WFL with good quality voice at avg 80 dB to increase prosody in speech and improve vocal quality. 3. Kayden will read functional phrases with good quality voice at avg 71 dB to improve/maintain speech intelligibility and promote carryover of good voicing in functional communication opportunities. 4. Kayden will produce structured speech tasks increasing in length and complexity over the course of treatment with good voicing at normal conversational levels (65-75 dB) to increase endurance of good quality voice and breath support for functional conversation opportunities. Halfway Goals 1. Kayden will perform structured voice tasks (e.g., sustained phonation, pitch range, reading tasks) with voicing, including loudness levels, WNL to increase speech intelligibility and good quality voice. 2. Kayden will produce spontaneous conversation with multiple conversation partners and in a variety of environments with loudness levels and vocal quality WNL ni 80% of opportunities to increase speech intelligibility and maintain communicative independence and quality of life. 3. Kayden will demonstrate independence with home exercise program to promote carryover of treatment results to functional conversation tasks and maintain speech intelligibility and good quality voice in presence of a progressive disease. Patient/Caregiver Education Patient/Family Education Described results of evaluation,Patient Understanding,Family Understanding,Patient Needs More Info
--- NOTE | 2021-06-02 16:35 | ST.OPTN ---
Visit Care Team Role Provider Type Mainor Mckenna MD Referring Provider Non-Staff Address: [address] [place] [address] [facility], [place], [address] Lenard Nance MD Attending Provider Physician Family Provider Primary Care Provider Address: [address] [place] [address], [address], [place], [address] PIGMENT PRESSER Treatment Note PIGMENT PRESSER Treatment Note Start: 06/03/21 08:58 Freq: Status: Active Protocol: Document 06/02/21 16:35 ZS (Rec: 06/03/21 09:19 ZS [id number]) Speech Pathology Treatment Note Session Time Visit Start Time 15:30 Visit Stop Time 16:30 Total Visit Minutes 60 Visit Information Visit Number 1 Plan of Care Dates 05/26/2021 - 06/27/2021 Insurance Information Medicare Setting Treatment Setting Outpatient Care Visit Type Note Type Treatment Note Next Note Type Next Note Type Treatment Note General Information General Information Kayden is a 75 year old male who was diagnosed with Parkinson's about 1 year ago and experiences a slight right hand tremor. He experienced increased hoarseness for about 1 year prior to the diagnosis . 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 Kayden reported he is frequently asked to repeat himself and will often have his fiance speak for him. His fiance reported he was a very outgoing and social person, but has been less social since his voice has decreased in quality and volume. Subjective Identification Type Name Identification Reconciled With Medical Record Others Present Additional Therapist Observations/Patient Presentation Kayden arrived on time. No new complaints. PIGMENT PRESSER Mikayla Vargas was present for observation and training purposes, with the patient's permission. Chief Complaint(s) Voice Objective Short Term Goals 1. Kayden will sustain phonation for 25 seconds with good quality voice at avg 80 dB to increase breath support for speech and vocal quality. 2. Kayden will produce pitch range WFL with good quality voice at avg 80 dB to increase prosody in speech and improve vocal quality. 3. Kayden will read functional phrases with good quality voice at avg 71 dB to improve/maintain speech intelligibility and promote carryover of good voicing in functional communication opportunities. 4. Kayden will produce structured speech tasks increasing in length and complexity over the course of treatment with good voicing at normal conversational levels (65-75 dB) to increase endurance of good quality voice and breath support for functional conversation. Line Patroller Goals 1. Kayden will perform structured voice tasks (e.g., sustained phonation, pitch range, reading tasks) with voicing, including loudness levels, WNL to increase speech intelligibility and good quality voice. 2. Kayden will produce spontaneous conversation with multiple conversation partners and in a variety of environments with loudness levels and vocal quality WNL in 80% of opportunities to increase speech intelligibility and maintain communicative independence and quality of life. 3. Kayden will demonstrate independence with home exercise program to promote carryover of treatment results to functional conversation tasks and maintain speech intelligibility and good quality voice in presence of a progressive disease. Treatment Activities Initiated training of LSVT- Loud treatment tasks. The patient completed the following: MPT = 15.8 w/ avg loudness of 61.5 dB. Range: 10 .80- 18.3 Pitch Range: Highs, avg 64.6 dB; Lows, avg 65 dB. Trained pt in abdominal breathing to reduce vocal strain and protect VFs. Functional Phrases: Collaborated with pt to complete list of 10 phrases. Pt read sentences with avg loudness of 71.2 dB. Carryover Assignment: Pt verbalized intention to go through exercises with brenda this evening. He reported increased congestion/phlegm in his throat today during the session. Assessment Patient Response to Treatment Good Rehab Potential Excellent Impairments Identified Speech Intelligibility,Vocal Quality Progress Towards Goals Good Progress Assessment of Overall Progress Improving Assessment of Improvement The pt was responsive to all training and prompts. He asked questions when prompts or exercises were unclear and implemented feedback. Pt benefitted from complete model of high and low exercises to achieve change in pitch. Demonstrated ability to generate loudness WNL. Loudness consistently dropped to below normal levels in general conversation and remarks. With prompting, Kayden was able to achieve WNL loudness during functional phrase reading. Reviewed with Patient Home Exercise Program Patient/Caregiver Understanding Good Plan Amount of Therapy Recommended 1-2 Months Frequency of Treatment Four Times a Week Length of Session 60 Minutes Therapeutic Contents Client Education,Home Exercise Program,Voice Training Provided Patient/Caregiver Instruction Home Exercise Program,Plan of Care,Questions/Concerns Therapy Recommendations Continue with Current Program
--- NOTE | 2021-06-03 09:19 | ST.OPTN ---
Visit Care Team Role Provider Type Mainor Mckenna MD Referring Provider Non-Staff Address: [address] [place] [address] [id number], [place], [address] Lenard Nance MD Attending Provider Physician Family Provider Primary Care Provider Address: [address] [place] [address], [address], [place], [address] WEB DEVELOPMENT CONSULTANT Treatment Note WEB DEVELOPMENT CONSULTANT Treatment Note Start: 06/03/21 08:58 Freq: Status: Active Protocol: Document 06/03/21 08:58 ZS (Rec: 06/03/21 09:19 ZS [id number]) Speech Pathology Treatment Note Session Time Visit Start Time 15:30 Visit Stop Time 16:30 Total Visit Minutes 60 Visit Information Visit Number 1 Plan of Care Dates 05/26/2021 - 06/27/2021 Insurance Information Medicare Setting Treatment Setting Outpatient Care Visit Type Note Type Treatment Note Next Note Type Next Note Type Treatment Note General Information General Information Kayden is a 75 year old male who was diagnosed with Parkinson's about 1 year ago and experiences a slight right hand tremor. He experienced increased hoarseness for about 1 year prior to the diagnosis . 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 Kayden reported he is frequently asked to repeat himself and will often have his fiance speak for him. His fiance reported he was a very outgoing and social person, but has been less social since his voice has decreased in quality and volume. Subjective Identification Type Name Identification Reconciled With Medical Record Others Present Additional Therapist Observations/Patient Presentation Kayden arrived on time. No new complaints. WEB DEVELOPMENT CONSULTANT Mikayla Vargas was present for observation and training purposes, with the patient's permission. Chief Complaint(s) Voice Objective Short Term Goals 1. Kayden will sustain phonation for 25 seconds with good quality voice at avg 80 dB to increase breath support for speech and vocal quality. 2. Kayden will produce pitch range WFL with good quality voice at avg 80 dB to increase prosody in speech and improve vocal quality. 3. Kayden will read functional phrases with good quality voice at avg 71 dB to improve/maintain speech intelligibility and promote carryover of good voicing in functional communication opportunities. 4. Kayden will produce structured speech tasks increasing in length and complexity over the course of treatment with good voicing at normal conversational levels (65-75 dB) to increase endurance of good quality voice and breath support for functional conversation. Wardrobe Attendant Goals 1. Kayden will perform structured voice tasks (e.g., sustained phonation, pitch range, reading tasks) with voicing, including loudness levels, WNL to increase speech intelligibility and good quality voice. 2. Kayden will produce spontaneous conversation with multiple conversation partners and in a variety of environments with loudness levels and vocal quality WNL in 80% of opportunities to increase speech intelligibility and maintain communicative independence and quality of life. 3. Kayden will demonstrate independence with home exercise program to promote carryover of treatment results to functional conversation tasks and maintain speech intelligibility and good quality voice in presence of a progressive disease. Treatment Activities Initiated training of LSVT- Loud treatment tasks. The patient completed the following: MPT = 15.8 w/ avg loudness of 61.5 dB. Range: 10 .80- 18.3 Pitch Range: Highs, avg 64.6 dB; Lows, avg 65 dB. Trained pt in abdominal breathing to reduce vocal strain and protect VFs. Functional Phrases: Collaborated with pt to complete list of 10 phrases. Pt read sentences with avg loudness of 71.2 dB. Carryover Assignment: Pt verbalized intention to go through exercises with brenda this evening. He reported increased congestion/phlegm in his throat today during the session. Assessment Patient Response to Treatment Good Rehab Potential Excellent Impairments Identified Speech Intelligibility,Vocal Quality Progress Towards Goals Good Progress Assessment of Overall Progress Improving Assessment of Improvement The pt was responsive to all training and prompts. He asked questions when prompts or exercises were unclear and implemented feedback. Pt benefitted from complete model of high and low exercises to achieve change in pitch. Demonstrated ability to generate loudness WNL. Loudness consistently dropped to below normal levels in general conversation and remarks. With prompting, Kayden was able to achieve WNL loudness during functional phrase reading. Reviewed with Patient Home Exercise Program Patient/Caregiver Understanding Good Plan Amount of Therapy Recommended 1-2 Months Frequency of Treatment Four Times a Week Length of Session 60 Minutes Therapeutic Contents Client Education,Home Exercise Program,Voice Training Provided Patient/Caregiver Instruction Home Exercise Program,Plan of Care,Questions/Concerns Therapy Recommendations Continue with Current Program
--- NOTE | 2021-06-03 12:47 | ST.OPTN ---
Visit Care Team Role Provider Type Mainor Mckenna MD Referring Provider Non-Staff Address: [address] [place] [address] [facility], [place], [address] Lenard Nance MD Attending Provider Physician Family Provider Primary Care Provider Address: [address] [place] [address], [address], [place], [address] MANAGER QUALITY IMPROVEMENT Treatment Note MANAGER QUALITY IMPROVEMENT Treatment Note Start: 06/03/21 08:58 Freq: Status: Active Protocol: Document 06/03/21 12:37 ZS (Rec: 06/03/21 12:47 ZS [id number]) Speech Pathology Treatment Note Session Time Visit Start Time 11:30 Visit Stop Time 12:30 Total Visit Minutes 60 Visit Information Visit Number 2 Plan of Care Dates 05/26/2021 - 06/27/2021 Insurance Information Medicare Setting Treatment Setting Outpatient Care Visit Type Note Type Treatment Note Next Note Type Next Note Type Treatment Note General Information General Information Kayden is a 75 year old male who was diagnosed with Parkinson's about 1 year ago and experiences a slight right hand tremor. He experienced increased hoarseness for about 1 year prior to the diagnosis . 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 Kayden reported he is frequently asked to repeat himself and will often have his fiance speak for him. His fiance reported he was a very outgoing and social person, but has been less social since his voice has decreased in quality and volume. Subjective Identification Type Name Identification Reconciled With Medical Record Others Present Family Observations/Patient Presentation Kayden arrived on time accompanied by his fiance. No new complaints. Chief Complaint(s) Voice Objective Short Term Goals 1. Kayden will sustain phonation for 25 seconds with good quality voice at avg 80 dB to increase breath support for speech and vocal quality. 2. Kayden will produce pitch range WFL with good quality voice at avg 80 dB to increase prosody in speech and improve vocal quality. 3. Kayden will read functional phrases with good quality voice at avg 71 dB to improve/maintain speech intelligibility and promote carryover of good voicing in functional communication opportunities. 4. Kayden will produce structured speech tasks increasing in length and complexity over the course of treatment with good voicing at normal conversational levels (65-75 dB) to increase endurance of good quality voice and breath support for functional conversation. Alf Goals 1. Kayden will perform structured voice tasks (e.g., sustained phonation, pitch range, reading tasks) with voicing, including loudness levels, WNL to increase speech intelligibility and good quality voice. 2. Kayden will produce spontaneous conversation with multiple conversation partners and in a variety of environments with loudness levels and vocal quality WNL in 80% of opportunities to increase speech intelligibility and maintain communicative independence and quality of life. 3. Kayden will demonstrate independence with home exercise program to promote carryover of treatment results to functional conversation tasks and maintain speech intelligibility and good quality voice in presence of a progressive disease. Treatment Activities The patient completed the following: MPT = 19.3 w/ avg loudness of 68.4 dB. Range: 14 .9-23.4 Pitch Range: Highs, avg 68.8 dB; Lows, avg 66.3 dB. Functional Phrases: Pt read sentences with avg loudness of 70.6 dB. Reading Words/Phrases: Pt read words/phrases with avg loudness of 71.2 dB Carryover Assignment: Pt verbalized intention to go through exercises with fiance this evening and use loud voice when sorting items for [employer] (i.e., Put it in the [employer] box). He reported increased congestion/phlegm in his throat today during the session and exhibited diplophonia across sustained ah exercises. Patient provided copy of VHI. Results of VHI place Jaswant's score at 52, indicating a moderate impact of his voice on daily living and activities . Assessment Patient Response to Treatment Good Rehab Potential Excellent Impairments Identified Speech Intelligibility,Vocal Quality Progress Towards Goals Good Progress Assessment of Overall Progress Improving Assessment of Improvement The pt was responsive to all training and prompts. He asked questions when prompts or exercises were unclear and implemented feedback. Pt benefitted from complete model of high and low exercises to achieve change in pitch. Pt demonstrated consistent loudness across reading tasks. Loudness consistently dropped to below normal levels in general conversation and remarks. Reviewed with Patient Home Exercise Program Patient/Caregiver Understanding Good Plan Amount of Therapy Recommended 1-2 Months Frequency of Treatment Four Times a Week Length of Session 60 Minutes Therapeutic Contents Client Education,Home Exercise Program,Voice Training Provided Patient/Caregiver Instruction Home Exercise Program,Plan of Care,Questions/Concerns Therapy Recommendations Continue with Current Program
--- NOTE | 2021-06-04 17:32 | ST.OPTN ---
Visit Care Team Role Provider Type Mainor Mckenna MD Referring Provider Non-Staff Address: [address] [place] [address] [facility], [place], [address] Lenard Nance MD Attending Provider Physician Family Provider Primary Care Provider Address: [address] [place] [address], [address], [place], [address] LACQUER MACHINE FEEDER Treatment Note LACQUER MACHINE FEEDER Treatment Note Start: 06/03/21 08:58 Freq: Status: Active Protocol: Document 06/04/21 17:29 ZS (Rec: 06/04/21 17:32 ZS [id number]) Speech Pathology Treatment Note Session Time Visit Start Time 15:30 Visit Stop Time 16:30 Total Visit Minutes 60 Visit Information Visit Number 3 Plan of Care Dates 05/26/2021 - 06/27/2021 Insurance Information Medicare Setting Treatment Setting Outpatient Care Visit Type Note Type Treatment Note Next Note Type Next Note Type Treatment Note General Information General Information Kayden is a 75 year old male who was diagnosed with Parkinson's about 1 year ago and experiences a slight right hand tremor. He experienced increased hoarseness for about 1 year prior to the diagnosis . 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 Kayden reported he is frequently asked to repeat himself and will often have his fiance speak for him. His fiance reported he was a very outgoing and social person, but has been less social since his voice has decreased in quality and volume. Subjective Identification Type Name Identification Reconciled With Medical Record Others Present Family Observations/Patient Presentation Kayden arrived on time accompanied by his fiance. No new complaints. Chief Complaint(s) Voice Objective Short Term Goals 1. Kayden will sustain phonation for 25 seconds with good quality voice at avg 80 dB to increase breath support for speech and vocal quality. 2. Kayden will produce pitch range WFL with good quality voice at avg 80 dB to increase prosody in speech and improve vocal quality. 3. Kayden will read functional phrases with good quality voice at avg 71 dB to improve/maintain speech intelligibility and promote carryover of good voicing in functional communication opportunities. 4. Kayden will produce structured speech tasks increasing in length and complexity over the course of treatment with good voicing at normal conversational levels (65-75 dB) to increase endurance of good quality voice and breath support for functional conversation. Halfway Goals 1. Kayden will perform structured voice tasks (e.g., sustained phonation, pitch range, reading tasks) with voicing, including loudness levels, WNL to increase speech intelligibility and good quality voice. 2. Kayden will produce spontaneous conversation with multiple conversation partners and in a variety of environments with loudness levels and vocal quality WNL in 80% of opportunities to increase speech intelligibility and maintain communicative independence and quality of life. 3. Kayden will demonstrate independence with home exercise program to promote carryover of treatment results to functional conversation tasks and maintain speech intelligibility and good quality voice in presence of a progressive disease. Treatment Activities The patient completed the following: MPT = 18.0 w/ avg loudness of 68.8 dB. Range: 15 .3 -23.1 Pitch Range: Highs, avg 69.3 dB; Lows, avg 66.8 dB. Functional Phrases: Pt read sentences with avg loudness of 72.5 dB. Reading Words/Phrases: Pt read words/phrases with avg loudness of 73.4 dB Carryover Assignment: Pt verbalized intention to go through exercises with fiance this evening and use loud voice when sorting items for [employer] (i.e., Put it in the [employer] box). Patient exhibited reduced diplophonia today. Volume decreased when making off hand remarks and responding to questions. Patient completed intake form, which indicated he has experienced some memory issues and confusion at times. Interest in boating, travel, and shopping. Assessment Patient Response to Treatment Good Rehab Potential Excellent Impairments Identified Speech Intelligibility,Vocal Quality Progress Towards Goals Good Progress Assessment of Overall Progress Improving Assessment of Improvement The pt was responsive to all training and prompts. He asked questions when prompts or exercises were unclear and implemented feedback. Pt benefitted from complete model of high and low exercises to achieve change in pitch, though did not require model for each trial today. Pt demonstrated consistent loudness across reading tasks. Loudness consistently dropped to below normal levels in general conversation and remarks. Reviewed with Patient Home Exercise Program Patient/Caregiver Understanding Good Plan Amount of Therapy Recommended 1-2 Months Frequency of Treatment Four Times a Week Length of Session 60 Minutes Therapeutic Contents Client Education,Home Exercise Program,Voice Training Provided Patient/Caregiver Instruction Home Exercise Program,Plan of Care,Questions/Concerns Therapy Recommendations Continue with Current Program
--- NOTE | 2021-06-05 14:10 | ST.OPTN ---
Visit Care Team Role Provider Type Mainor Mckenna MD Referring Provider Non-Staff Address: [address] [place] [address] [facility], [place], [address] Lenard Nance MD Attending Provider Physician Family Provider Primary Care Provider Address: [address] [place] [address], [address], [place], [address] EDUCATION SPECIALIST Treatment Note EDUCATION SPECIALIST Treatment Note Start: 06/03/21 08:58 Freq: Status: Active Protocol: Document 06/05/21 14:06 ZS (Rec: 06/05/21 14:10 ZS [id number]) Speech Pathology Treatment Note Session Time Visit Start Time 11:30 Visit Stop Time 12:30 Total Visit Minutes 60 Visit Information Visit Number 4 Plan of Care Dates 05/26/2021 - 06/27/2021 Insurance Information Medicare Setting Treatment Setting Outpatient Care Visit Type Note Type Treatment Note Next Note Type Next Note Type Treatment Note General Information General Information Kayden is a 75 year old male who was diagnosed with Parkinson's about 1 year ago and experiences a slight right hand tremor. He experienced increased hoarseness for about 1 year prior to the diagnosis . 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 Kayden reported he is frequently asked to repeat himself and will often have his fiance speak for him. His fiance reported he was a very outgoing and social person, but has been less social since his voice has decreased in quality and volume. Subjective Identification Type Name Identification Reconciled With Medical Record Observations/Patient Presentation Kayden arrived on time. No new complaints. Chief Complaint(s) Voice Objective Short Term Goals 1. Kayden will sustain phonation for 25 seconds with good quality voice at avg 80 dB to increase breath support for speech and vocal quality. 2. Kayden will produce pitch range WFL with good quality voice at avg 80 dB to increase prosody in speech and improve vocal quality. 3. Kayden will read functional phrases with good quality voice at avg 71 dB to improve/maintain speech intelligibility and promote carryover of good voicing in functional communication opportunities. 4. Kayden will produce structured speech tasks increasing in length and complexity over the course of treatment with good voicing at normal conversational levels (65-75 dB) to increase endurance of good quality voice and breath support for functional conversation. Pot Liner Goals 1. Kayden will perform structured voice tasks (e.g., sustained phonation, pitch range, reading tasks) with voicing, including loudness levels, WNL to increase speech intelligibility and good quality voice. 2. Kayden will produce spontaneous conversation with multiple conversation partners and in a variety of environments with loudness levels and vocal quality WNL in 80% of opportunities to increase speech intelligibility and maintain communicative independence and quality of life. 3. Kayden will demonstrate independence with home exercise program to promote carryover of treatment results to functional conversation tasks and maintain speech intelligibility and good quality voice in presence of a progressive disease. Treatment Activities The patient completed the following: MPT = 18.1 w/ avg loudness of 70.2 dB. Range: 15 .4-21.5 Pitch Range: Highs, avg 68.1 dB; Lows, avg 68.5 dB. Functional Phrases: Pt read sentences with avg loudness of 72.8 dB. Reading Words/Phrases: Pt read words/phrases with avg loudness of 72.8 dB Carryover Assignment: Pt verbalized intention to go through exercises with fiance this evening and use loud voice when checking in at his dentist appointment this afternoon. Patient exhibited diplophonia across all sustained ah tasks today. Volume decreased when making off hand remarks and responding to questions. Assessment Patient Response to Treatment Good Rehab Potential Excellent Impairments Identified Speech Intelligibility,Vocal Quality Progress Towards Goals Good Progress Assessment of Overall Progress Improving Assessment of Improvement The pt was responsive to all training and prompts. He asked questions when prompts or exercises were unclear and implemented feedback. Pt benefitted from complete model of high and low exercises to achieve change in pitch, and needed a model for each trial of lows today. Pt demonstrated consistent loudness across reading tasks, though loudness decreased when he had difficulty reading a phrase. Loudness consistently dropped to below normal levels in general conversation and remarks. Reviewed with Patient Home Exercise Program Patient/Caregiver Understanding Good Plan Amount of Therapy Recommended 1-2 Months Frequency of Treatment Four Times a Week Length of Session 60 Minutes Therapeutic Contents Client Education,Home Exercise Program,Voice Training Provided Patient/Caregiver Instruction Home Exercise Program,Plan of Care,Questions/Concerns Therapy Recommendations Continue with Current Program
--- NOTE | 2021-06-09 11:08 | ST-OP ANOTE ---
Physical, Occupational & Speech Therapy At [facility] Speech Therapy Note Patient did not show for scheduled appointment on 06/09/2021 at 10:30. When clinician called pt, he indicated he was having digestive issues and tried to notify us that he was unable to attend today. Patient is not able to reschedule for appointment on Wednesday, but indicated he would complete additional home practice program today in place of missed appointment.
--- NOTE | 2021-06-10 12:20 | ST.OPTN ---
Visit Care Team Role Provider Type Mainor Mckenna MD Referring Provider Non-Staff Address: [address] [place] [address] [facility], [place], [address] Lenard Nance MD Attending Provider Physician Family Provider Primary Care Provider Address: [address] [place] [address], [address], [place], [address] PICKER MACHINE OPERATOR Treatment Note PICKER MACHINE OPERATOR Treatment Note Start: 06/03/21 08:58 Freq: Status: Active Protocol: Document 06/10/21 12:13 ZS (Rec: 06/10/21 12:20 ZS [id number]) Speech Pathology Treatment Note Session Time Visit Start Time 11:30 Visit Stop Time 12:30 Total Visit Minutes 60 Visit Information Visit Number 5 Plan of Care Dates 05/26/2021 - 06/27/2021 Insurance Information Medicare Setting Treatment Setting Outpatient Care Visit Type Note Type Treatment Note Next Note Type Next Note Type Treatment Note General Information General Information Kayden is a 75 year old male who was diagnosed with Parkinson's about 1 year ago and experiences a slight right hand tremor. He experienced increased hoarseness for about 1 year prior to the diagnosis . 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 Kayden reported he is frequently asked to repeat himself and will often have his fiance speak for him. His fiance reported he was a very outgoing and social person, but has been less social since his voice has decreased in quality and volume. Subjective Identification Type Name Identification Reconciled With Medical Record Others Present Family Observations/Patient Presentation Kayden arrived on time accompanied by his fiance, who was present for the session. No new complaints. Chief Complaint(s) Voice Objective Short Term Goals 1. Kayden will sustain phonation for 25 seconds with good quality voice at avg 80 dB to increase breath support for speech and vocal quality. 2. Kayden will produce pitch range WFL with good quality voice at avg 80 dB to increase prosody in speech and improve vocal quality. 3. Kayden will read functional phrases with good quality voice at avg 71 dB to improve/maintain speech intelligibility and promote carryover of good voicing in functional communication opportunities. 4. Kayden will produce structured speech tasks increasing in length and complexity over the course of treatment with good voicing at normal conversational levels (65-75 dB) to increase endurance of good quality voice and breath support for functional conversation. Nursing Home Goals 1. Kayden will perform structured voice tasks (e.g., sustained phonation, pitch range, reading tasks) with voicing, including loudness levels, WNL to increase speech intelligibility and good quality voice. 2. Kayden will produce spontaneous conversation with multiple conversation partners and in a variety of environments with loudness levels and vocal quality WNL in 80% of opportunities to increase speech intelligibility and maintain communicative independence and quality of life. 3. Kayden will demonstrate independence with home exercise program to promote carryover of treatment results to functional conversation tasks and maintain speech intelligibility and good quality voice in presence of a progressive disease. Treatment Activities The patient completed the following: MPT = 12.5 w/ avg loudness of 68.8 dB. Range: 66 -72 Pitch Range: Highs, avg 69.4 dB; Lows, avg 68.1 dB. Functional Phrases: Pt read sentences with avg loudness of 72.6 dB. Reading Words/Phrases: Pt read words/phrases with avg loudness of 70.2 dB Carryover Assignment: Pt verbalized intention to say something in at least one of his two meetings this afternoon (e.g., I have an idea). Patient exhibited diplophonia across all sustained ah tasks today. Clarity of voice improved following drink of water. Volume decreased to avg. of 66 .3 dB (range: 64-68 dB) when making off hand remarks and responding to questions. Jaswant did not respond to comments to speak up while he was talking , however, would repeat shorter phrases louder if clinician said what? after he finished talking. Assessment Patient Response to Treatment Good Rehab Potential Excellent Impairments Identified Speech Intelligibility,Vocal Quality Progress Towards Goals Good Progress Assessment of Overall Progress Improving Assessment of Improvement The pt was responsive to all training and prompts. He asked questions when prompts or exercises were unclear and implemented feedback. Pt benefitted from complete model of high and low exercises to achieve change in pitch and recall in which direction (increase or decrease pitch) to go. Pt demonstrated consistent loudness across reading tasks, though loudness significantly decreased when he had difficulty reading a phrase. Jaswant benefitted from having sentences read to him first and a finger trace to track where he was while reading. Loudness consistently dropped to below normal levels in general conversation and remarks. Reviewed with Patient Home Exercise Program Patient/Caregiver Understanding Good Plan Amount of Therapy Recommended 1-2 Months Frequency of Treatment Four Times a Week Length of Session 60 Minutes Therapeutic Contents Client Education,Home Exercise Program,Voice Training Provided Patient/Caregiver Instruction Home Exercise Program,Plan of Care,Questions/Concerns Therapy Recommendations Continue with Current Program
--- NOTE | 2021-06-11 12:45 | ST.OPTN ---
Visit Care Team Role Provider Type Mainor Mckenna MD Referring Provider Non-Staff Address: [address] [place] [address] [facility], [place], [address] Lenard Nance MD Attending Provider Physician Family Provider Primary Care Provider Address: [address] [place] [address], [address], [place], [address] CLOTHES WRINGER Treatment Note CLOTHES WRINGER Treatment Note Start: 06/03/21 08:58 Freq: Status: Active Protocol: Document 06/11/21 12:39 ZS (Rec: 06/11/21 12:45 ZS [id number]) Speech Pathology Treatment Note Session Time Visit Start Time 11:30 Visit Stop Time 12:30 Total Visit Minutes 60 Visit Information Visit Number 6 Plan of Care Dates 05/26/2021 - 06/27/2021 Insurance Information Medicare Setting Treatment Setting Outpatient Care Visit Type Note Type Treatment Note Next Note Type Next Note Type Treatment Note General Information General Information Kayden is a 75 year old male who was diagnosed with Parkinson's about 1 year ago and experiences a slight right hand tremor. He experienced increased hoarseness for about 1 year prior to the diagnosis . 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 Kayden reported he is frequently asked to repeat himself and will often have his fiance speak for him. His fiance reported he was a very outgoing and social person, but has been less social since his voice has decreased in quality and volume. Subjective Identification Type Name Identification Reconciled With Medical Record Others Present Family Observations/Patient Presentation Kayden arrived on time accompanied by his fiance, who was present for the session. No new complaints. Chief Complaint(s) Voice Objective Short Term Goals 1. Kayden will sustain phonation for 25 seconds with good quality voice at avg 80 dB to increase breath support for speech and vocal quality. 2. Kayden will produce pitch range WFL with good quality voice at avg 80 dB to increase prosody in speech and improve vocal quality. 3. Kayden will read functional phrases with good quality voice at avg 71 dB to improve/maintain speech intelligibility and promote carryover of good voicing in functional communication opportunities. 4. Kayden will produce structured speech tasks increasing in length and complexity over the course of treatment with good voicing at normal conversational levels (65-75 dB) to increase endurance of good quality voice and breath support for functional conversation. Nursing Home Goals 1. Kayden will perform structured voice tasks (e.g., sustained phonation, pitch range, reading tasks) with voicing, including loudness levels, WNL to increase speech intelligibility and good quality voice. 2. Kayden will produce spontaneous conversation with multiple conversation partners and in a variety of environments with loudness levels and vocal quality WNL in 80% of opportunities to increase speech intelligibility and maintain communicative independence and quality of life. 3. Kayden will demonstrate independence with home exercise program to promote carryover of treatment results to functional conversation tasks and maintain speech intelligibility and good quality voice in presence of a progressive disease. Treatment Activities The patient completed the following: MPT = 16.2 w/ avg loudness of 71.2 dB. Range: 70 -73 Pitch Range: Highs, avg 71.2 dB; Lows, avg 71 dB. Functional Phrases: Pt read sentences with avg loudness of 72.5 dB. Reading Words/Phrases: Pt read words/phrases with avg loudness of 69.5 dB Carryover Assignment: Pt verbalized intention to say 1- 2 phrases discussed and practiced in therapy at his committee meeting this afternoon (e.g., How can we do this? or Everyone should get a fair shot.). Patient exhibited diplophonia across most sustained ah tasks today. Volume decreased when making off hand remarks and responding to questions, though Jaswant increased volume when asked what? and maintained volume immediately following exercises in about 20% of opportunities. Assessment Patient Response to Treatment Good Rehab Potential Excellent Impairments Identified Speech Intelligibility,Vocal Quality Progress Towards Goals Good Progress Assessment of Overall Progress Improving Assessment of Improvement The pt was responsive to all training and prompts. Pt benefitted from complete model of high and low exercises to achieve change in pitch and recall in which direction (increase or decrease pitch) to go. Pt demonstrated consistent loudness across reading tasks, though loudness significantly decreased when he had difficulty reading a phrase. Loudness dropped to below normal levels in general conversation and with remarks about 80% of the time, though noted increased instances of Jaswant maintaining volume in comments immediately following a therapy task. Reviewed with Patient Home Exercise Program Patient/Caregiver Understanding Good Plan Amount of Therapy Recommended 1-2 Months Frequency of Treatment Four Times a Week Length of Session 60 Minutes Therapeutic Contents Client Education,Home Exercise Program,Voice Training Provided Patient/Caregiver Instruction Home Exercise Program,Plan of Care,Questions/Concerns Therapy Recommendations Continue with Current Program
--- NOTE | 2021-06-12 14:41 | ST.OPTN ---
Visit Care Team Role Provider Type Mainor Mckenna MD Referring Provider Non-Staff Address: [address] [facility], [place], [address] Lenard Nance MD Attending Provider Physician Family Provider Primary Care Provider Address: [address] [place] [address], [address], [place], [address] COSMETIC SALES ASSISTANT Treatment Note COSMETIC SALES ASSISTANT Treatment Note Start: 06/03/21 08:58 Freq: Status: Active Protocol: Document 06/12/21 14:34 ZS (Rec: 06/12/21 14:41 ZS [id number]) Speech Pathology Treatment Note Session Time Visit Start Time 13:30 Visit Stop Time 14:30 Total Visit Minutes 60 Visit Information Visit Number 7 Plan of Care Dates 05/26/2021 - 06/27/2021 Insurance Information Medicare Setting Treatment Setting Outpatient Care Visit Type Note Type Treatment Note Next Note Type Next Note Type Treatment Note General Information General Information Kayden is a 75 year old male who was diagnosed with Parkinson's about 1 year ago and experiences a slight right hand tremor. He experienced increased hoarseness for about 1 year prior to the diagnosis . 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 Kayden reported he is frequently asked to repeat himself and will often have his fiance speak for him. His fiance reported he was a very outgoing and social person, but has been less social since his voice has decreased in quality and volume. Subjective Identification Type Name Identification Reconciled With Medical Record Others Present Family Observations/Patient Presentation Kayden arrived on time accompanied by his fiance, who was present for the session. No new complaints. Chief Complaint(s) Voice Patient/Caregiver Compliance with Home Excellent Exercise Program Objective Short Term Goals 1. Kayden will sustain phonation for 25 seconds with good quality voice at avg 80 dB to increase breath support for speech and vocal quality. 2. Kayden will produce pitch range WFL with good quality voice at avg 80 dB to increase prosody in speech and improve vocal quality. 3. Kayden will read functional phrases with good quality voice at avg 71 dB to improve/maintain speech intelligibility and promote carryover of good voicing in functional communication opportunities. 4. Kayden will produce structured speech tasks increasing in length and complexity over the course of treatment with good voicing at normal conversational levels (65-75 dB) to increase endurance of good quality voice and breath support for functional conversation. [facility] Goals 1. Kayden will perform structured voice tasks (e.g., sustained phonation, pitch range, reading tasks) with voicing, including loudness levels, WNL to increase speech intelligibility and good quality voice. 2. Kayden will produce spontaneous conversation with multiple conversation partners and in a variety of environments with loudness levels and vocal quality WNL in 80% of opportunities to increase speech intelligibility and maintain communicative independence and quality of life. 3. Kayden will demonstrate independence with home exercise program to promote carryover of treatment results to functional conversation tasks and maintain speech intelligibility and good quality voice in presence of a progressive disease. Treatment Activities The patient completed the following: MPT = 15.1 w/ avg loudness of 73.1 dB. Range: 71 -75 Pitch Range: Highs, avg 72.5 dB; Lows, avg 70 dB. Functional Phrases: Pt read sentences with avg loudness of 72.7 dB. Reading Words/Phrases: Pt read words/phrases with avg loudness of 71.7 dB Carryover Assignment: Pt verbalized intention to speak loudly at his meeting with the board to review notes from his committee meeting yesterday. Patient exhibited diplophonia across most sustained ah tasks today with improvement in vocal quality noted when cues to push the air from your stomach , not your throat were provided. Volume decreased with some off hand remarks and responding to questions, though Jaswant maintained loud volume for most off-hand comments and exhibited 2 instances of self-correction where he noted he was using a quieter voice without verbal or visual cues. Assessment Patient Response to Treatment Good Rehab Potential Excellent Impairments Identified Speech Intelligibility,Vocal Quality Progress Towards Goals Good Progress Assessment of Overall Progress Improving Assessment of Improvement The pt was responsive to all training and prompts. Pt benefitted from complete model of high and low exercises to achieve change in pitch and recall in which direction (increase or decrease pitch) to go, though fewer cues were needed than in previous sessions. Pt demonstrated consistent loudness across reading tasks, though loudness significantly decreased when he had difficulty reading a phrase. Loudness dropped to below normal levels in general conversation and with remarks about 60% of the time, with noted increased instances of Jaswant maintaining volume in comments and 2 instances of self-correction observed. Reviewed with Patient Home Exercise Program Patient/Caregiver Understanding Good Plan Amount of Therapy Recommended 1-2 Months Frequency of Treatment Four Times a Week Length of Session 60 Minutes Therapeutic Contents Client Education,Home Exercise Program,Voice Training Provided Patient/Caregiver Instruction Home Exercise Program,Plan of Care,Questions/Concerns Therapy Recommendations Continue with Current Program
--- NOTE | 2021-06-16 12:24 | ST.OPTN ---
Visit Care Team Role Provider Type Mainor Mckenna MD Referring Provider Non-Staff Address: [address] [place] [address] [facility], [place], [address] Lenard Nance MD Attending Provider Physician Family Provider Primary Care Provider Address: [address] [place] [address], [address], [place], [address] PLANT CONTROL OPERATOR Treatment Note PLANT CONTROL OPERATOR Treatment Note Start: 06/03/21 08:58 Freq: Status: Active Protocol: Document 06/16/21 12:19 ZS (Rec: 06/16/21 12:23 ZS [id number]) Speech Pathology Treatment Note Session Time Visit Start Time 10:30 Visit Stop Time 11:30 Total Visit Minutes 60 Visit Information Visit Number 8 Plan of Care Dates 05/26/2021 - 06/27/2021 Insurance Information Medicare Setting Treatment Setting Outpatient Care Visit Type Note Type Treatment Note Next Note Type Next Note Type Treatment Note General Information General Information Kayden is a 75 year old male who was diagnosed with Parkinson's about 1 year ago and experiences a slight right hand tremor. He experienced increased hoarseness for about 1 year prior to the diagnosis . 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 Kayden reported he is frequently asked to repeat himself and will often have his fiance speak for him. His fiance reported he was a very outgoing and social person, but has been less social since his voice has decreased in quality and volume. Subjective Identification Type Name Identification Reconciled With Medical Record Others Present Family Observations/Patient Presentation Kayden arrived on time accompanied by his fiance, who was present for the session. No new complaints. Chief Complaint(s) Voice Patient/Caregiver Compliance with Home Excellent Exercise Program Objective Short Term Goals 1. Kayden will sustain phonation for 25 seconds with good quality voice at avg 80 dB to increase breath support for speech and vocal quality. 2. Kayden will produce pitch range WFL with good quality voice at avg 80 dB to increase prosody in speech and improve vocal quality. 3. Kayden will read functional phrases with good quality voice at avg 71 dB to improve/maintain speech intelligibility and promote carryover of good voicing in functional communication opportunities. 4. Kayden will produce structured speech tasks increasing in length and complexity over the course of treatment with good voicing at normal conversational levels (65-75 dB) to increase endurance of good quality voice and breath support for functional conversation. Skilled Nursing Goals 1. Kayden will perform structured voice tasks (e.g., sustained phonation, pitch range, reading tasks) with voicing, including loudness levels, WNL to increase speech intelligibility and good quality voice. 2. Kayden will produce spontaneous conversation with multiple conversation partners and in a variety of environments with loudness levels and vocal quality WNL in 80% of opportunities to increase speech intelligibility and maintain communicative independence and quality of life. 3. Kayden will demonstrate independence with home exercise program to promote carryover of treatment results to functional conversation tasks and maintain speech intelligibility and good quality voice in presence of a progressive disease. Treatment Activities The patient completed the following: MPT = 16.1 w/ avg loudness of 72.6 dB. Range: 70 -75 Pitch Range: Highs, avg 72.7 dB; Lows, avg 70 dB. Functional Phrases: Pt read sentences with avg loudness of 72.6 dB. Reading Words/Phrases: Pt read words/phrases with avg loudness of 70.9 dB Carryover Assignment: Pt verbalized intention to speak loudly when working on boat repairs with a friend today. Practiced phrase Are we going to need an oil change? during session. Patient exhibited diplophonia across several sustained ah tasks today with improvement in vocal quality noted when cues to push the air from your stomach, not your throat were provided. Volume decreased with some off hand remarks and responding to questions, though Jaswant maintained loud volume for most off-hand comments. Assessment Patient Response to Treatment Good Rehab Potential Excellent Impairments Identified Speech Intelligibility,Vocal Quality Progress Towards Goals Good Progress Assessment of Overall Progress Improving Assessment of Improvement The pt was responsive to all training and prompts. Pt benefitted from complete model of high and low exercises to achieve change in pitch and recall in which direction (increase or decrease pitch) to go, though fewer cues were needed than in previous sessions. Pt demonstrated consistent loudness across reading tasks, though loudness significantly decreased when he had difficulty reading a phrase. Loudness dropped to below normal levels in general conversation and with remarks about 50% of the time, with noted increased instances of Jaswant maintaining volume in comments. Reviewed with Patient Home Exercise Program Patient/Caregiver Understanding Good Plan Amount of Therapy Recommended 1-2 Months Frequency of Treatment Four Times a Week Length of Session 60 Minutes Therapeutic Contents Client Education,Home Exercise Program,Voice Training Provided Patient/Caregiver Instruction Home Exercise Program,Plan of Care,Questions/Concerns Therapy Recommendations Continue with Current Program
--- NOTE | 2021-06-17 16:27 | ST.OPTN ---
Visit Care Team Role Provider Type Mainor Mckenna MD Referring Provider Non-Staff Address: [address] [place] [address] [facility], [place], [address] Lenard Nance MD Attending Provider Physician Family Provider Primary Care Provider Address: [address] [place] [address], [facility], [place], [address] STERILE TECHNICIAN Treatment Note STERILE TECHNICIAN Treatment Note Start: 06/03/21 08:58 Freq: Status: Active Protocol: Document 06/17/21 16:22 ZS (Rec: 06/17/21 16:27 ZS [id number]) Speech Pathology Treatment Note Session Time Visit Start Time 10:30 Visit Stop Time 11:30 Total Visit Minutes 60 Visit Information Visit Number 9 Plan of Care Dates 05/26/2021 - 06/27/2021 Insurance Information Medicare Setting Treatment Setting Outpatient Care Visit Type Note Type Treatment Note Next Note Type Next Note Type Treatment Note General Information General Information Kayden is a 75 year old male who was diagnosed with Parkinson's about 1 year ago and experiences a slight right hand tremor. He experienced increased hoarseness for about 1 year prior to the diagnosis . 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 Kayden reported he is frequently asked to repeat himself and will often have his fiance speak for him. His fiance reported he was a very outgoing and social person, but has been less social since his voice has decreased in quality and volume. Subjective Identification Type Name Identification Reconciled With Medical Record Others Present Family,Additional Therapist Observations/Patient Presentation Kayden arrived on time accompanied by his fiance, who was present for the session. Additional STERILE TECHNICIAN present, which Jaswant agreed to. No new complaints. Chief Complaint(s) Voice Patient/Caregiver Compliance with Home Excellent Exercise Program Objective Short Term Goals 1. Kayden will sustain phonation for 25 seconds with good quality voice at avg 80 dB to increase breath support for speech and vocal quality. 2. Kayden will produce pitch range WFL with good quality voice at avg 80 dB to increase prosody in speech and improve vocal quality. 3. Kayden will read functional phrases with good quality voice at avg 71 dB to improve/maintain speech intelligibility and promote carryover of good voicing in functional communication opportunities. 4. Kayden will produce structured speech tasks increasing in length and complexity over the course of treatment with good voicing at normal conversational levels (65-75 dB) to increase endurance of good quality voice and breath support for functional conversation. [facility] Goals 1. Kayden will perform structured voice tasks (e.g., sustained phonation, pitch range, reading tasks) with voicing, including loudness levels, WNL to increase speech intelligibility and good quality voice. 2. Kayden will produce spontaneous conversation with multiple conversation partners and in a variety of environments with loudness levels and vocal quality WNL in 80% of opportunities to increase speech intelligibility and maintain communicative independence and quality of life. 3. Kayden will demonstrate independence with home exercise program to promote carryover of treatment results to functional conversation tasks and maintain speech intelligibility and good quality voice in presence of a progressive disease. Treatment Activities The patient completed the following: MPT = 13.5 w/ avg loudness of 73.8 dB. Range: 71 -75 Pitch Range: Highs, avg 71.8 dB; Lows, avg 71.8 dB. Functional Phrases: Pt read sentences with avg loudness of 73.6 dB. Reading Words/Phrases: Pt read words/phrases with avg loudness of 68.4 dB Carryover Assignment: Pt verbalized intention to speak loudly when getting together with a friend this afternoon. Practiced yawn sigh and abdominal breathing during sustained ah task. Patient exhibited diplophonia across some sustained ah tasks today with improvement in vocal quality noted when cues to push the air from your stomach, not your throat and open your mouth were provided. Volume decreased with some off hand remarks and responding to questions, though Jaswant maintained loud volume for most off-hand comments and exhibited 2 instances of self-correction. Difficulty noted with reading paragraphs, as Jaswant stated I hate this after increasing frustration with reading. Attempted picture description task, though volume dropped significantly with this task. Assessment Patient Response to Treatment Good Rehab Potential Excellent Impairments Identified Speech Intelligibility,Vocal Quality Progress Towards Goals Good Progress Assessment of Overall Progress Improving Assessment of Improvement The pt was responsive to all training and prompts. Pt benefitted from complete model of high and low exercises to achieve change in pitch and recall in which direction (increase or decrease pitch) to go, though fewer cues were needed than in previous sessions. Pt demonstrated consistent loudness across reading tasks, though loudness significantly decreased when he had difficulty reading a phrase or was completing picture description tasks. Loudness dropped to below normal levels in general conversation and with remarks about 50% of the time, with noted increased instances of Jaswant maintaining volume in comments. Reviewed with Patient Home Exercise Program Patient/Caregiver Understanding Good Plan Amount of Therapy Recommended 1-2 Months Frequency of Treatment Four Times a Week Length of Session 60 Minutes Therapeutic Contents Client Education,Home Exercise Program,Voice Training Provided Patient/Caregiver Instruction Home Exercise Program,Plan of Care,Questions/Concerns Therapy Recommendations Continue with Current Program
--- NOTE | 2021-06-19 14:30 | ST.OPTN ---
Visit Care Team Role Provider Type Mainor Mckenna MD Referring Provider Non-Staff Address: [address] [place] [address] [facility], [place], [address] Lenard Nance MD Attending Provider Physician Family Provider Primary Care Provider Address: [address] [place] [address], [address], [place], [address] ERADICATOR Treatment Note ERADICATOR Treatment Note Start: 06/03/21 08:58 Freq: Status: Active Protocol: Document 06/19/21 14:30 ZS (Rec: 06/20/21 13:40 ZS [id number]) Speech Pathology Treatment Note Session Time Visit Start Time 13:30 Visit Stop Time 14:30 Total Visit Minutes 60 Visit Information Visit Number 10 Plan of Care Dates 05/26/2021 - 06/27/2021 Insurance Information Medicare Setting Treatment Setting Outpatient Care Visit Type Note Type Treatment Note Next Note Type Next Note Type Treatment Note General Information General Information Kayden is a 75 year old male who was diagnosed with Parkinson's about 1 year ago and experiences a slight right hand tremor. He experienced increased hoarseness for about 1 year prior to the diagnosis . 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 Kayden reported he is frequently asked to repeat himself and will often have his fiance speak for him. His fiance reported he was a very outgoing and social person, but has been less social since his voice has decreased in quality and volume. Subjective Identification Type Name Identification Reconciled With Medical Record Others Present Family Observations/Patient Presentation Kayden arrived on time accompanied by his fiance, who was present for the session. No new complaints. Chief Complaint(s) Voice Patient/Caregiver Compliance with Home Excellent Exercise Program Objective Short Term Goals 1. Kayden will sustain phonation for 25 seconds with good quality voice at avg 80 dB to increase breath support for speech and vocal quality. 2. Kayden will produce pitch range WFL with good quality voice at avg 80 dB to increase prosody in speech and improve vocal quality. 3. Kayden will read functional phrases with good quality voice at avg 71 dB to improve/maintain speech intelligibility and promote carryover of good voicing in functional communication opportunities. 4. Kayden will produce structured speech tasks increasing in length and complexity over the course of treatment with good voicing at normal conversational levels (65-75 dB) to increase endurance of good quality voice and breath support for functional conversation. [facility] Goals 1. Kayden will perform structured voice tasks (e.g., sustained phonation, pitch range, reading tasks) with voicing, including loudness levels, WNL to increase speech intelligibility and good quality voice. 2. Kayden will produce spontaneous conversation with multiple conversation partners and in a variety of environments with loudness levels and vocal quality WNL in 80% of opportunities to increase speech intelligibility and maintain communicative independence and quality of life. 3. Kayden will demonstrate independence with home exercise program to promote carryover of treatment results to functional conversation tasks and maintain speech intelligibility and good quality voice in presence of a progressive disease. Treatment Activities The patient completed the following: MPT = 15.0 w/ avg loudness of 72.8 dB. Range: 71 -75 Pitch Range: Highs, avg 71.7 dB; Lows, avg 69.9 dB. Functional Phrases: Pt read sentences with avg loudness of 72.7 dB. 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 Patient exhibited diplophonia across some sustained ah tasks today with improvement in vocal quality noted when cues to push the air from your stomach, not your throat and open your mouth were provided. Volume was lower throughout tasks, though pt benefitted from tapping on white board with LOUD written on it to increase volume while describing pictures. Volume decreased with some off hand remarks and responding to questions, though Jaswant maintained loud volume for most off-hand comments and exhibited 1 instance of self- correction. Assessment Patient Response to Treatment Good Rehab Potential Excellent Impairments Identified Speech Intelligibility,Vocal Quality Progress Towards Goals Good Progress Assessment of Overall Progress Improving Assessment of Improvement The pt was responsive to all training and prompts. Pt benefitted from complete model of high and low exercises to achieve change in pitch and recall in which direction (increase or decrease pitch) to go, though fewer cues were needed than in previous sessions. Pt demonstrated consistent loudness across reading tasks, though had significant difficulty with reading and preferred picture description instead. Difficulty observed with maintaining high volume during picture description task. Loudness dropped to below normal levels in general conversation and with remarks about 40% of the time, with noted increased instances of Jaswant maintaining volume in comments. Reviewed with Patient Home Exercise Program Patient/Caregiver Understanding Good Plan Amount of Therapy Recommended 1-2 Months Frequency of Treatment Four Times a Week Length of Session 60 Minutes Therapeutic Contents Client Education,Home Exercise Program,Voice Training Provided Patient/Caregiver Instruction Home Exercise Program,Plan of Care,Questions/Concerns Therapy Recommendations Continue with Current Program
--- NOTE | 2021-06-23 12:14 | ST.OPTN ---
Visit Care Team Role Provider Type Mainor Mckenna MD Referring Provider Non-Staff Address: [address] [place] [address] [id number], [place], [address] Lenard Nance MD Attending Provider Physician Family Provider Primary Care Provider Address: [address] [place] [address], [address], [place], [address] CLINICAL EVALUATOR Treatment Note CLINICAL EVALUATOR Treatment Note Start: 06/03/21 08:58 Freq: Status: Active Protocol: Document 06/23/21 12:08 ZS (Rec: 06/23/21 12:14 ZS [id number]) Speech Pathology Treatment Note Session Time Visit Start Time 10:30 Visit Stop Time 11:30 Total Visit Minutes 60 Visit Information Visit Number 11 Plan of Care Dates 06/23/2021 - 07/11/2021 Insurance Information Medicare Setting Treatment Setting Outpatient Care Visit Type Note Type Progress Note Next Note Type Next Note Type Treatment Note General Information General Information Kayden is a 75 year old male who was diagnosed with Parkinson's about 1 year ago and experiences a slight right hand tremor. He experienced increased hoarseness for about 1 year prior to the diagnosis . 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 Kayden reported he is frequently asked to repeat himself and will often have his fiance speak for him. His fiance reported he was a very outgoing and social person, but has been less social since his voice has decreased in quality and volume. Subjective Identification Type Name Identification Reconciled With Medical Record Others Present Family Observations/Patient Presentation Kayden arrived on time accompanied by his fiance, who was present for the session. No new complaints. Jaswant reported he did not complete the home practice over the weekend. Chief Complaint(s) Voice Patient/Caregiver Compliance with Home Excellent Exercise Program Objective Short Term Goals 1. Kayden will sustain phonation for 25 seconds with good quality voice at avg 80 dB to increase breath support for speech and vocal quality. 2. Kayden will produce pitch range WFL with good quality voice at avg 80 dB to increase prosody in speech and improve vocal quality. 3. Kayden will read functional phrases with good quality voice at avg 71 dB to improve/maintain speech intelligibility and promote carryover of good voicing in functional communication opportunities. 4. Kayden will produce structured speech tasks increasing in length and complexity over the course of treatment with good voicing at normal conversational levels (65-75 dB) to increase endurance of good quality voice and breath support for functional conversation. Grizzlyman Goals 1. Kayden will perform structured voice tasks (e.g., sustained phonation, pitch range, reading tasks) with voicing, including loudness levels, WNL to increase speech intelligibility and good quality voice. 2. Kayden will produce spontaneous conversation with multiple conversation partners and in a variety of environments with loudness levels and vocal quality WNL in 80% of opportunities to increase speech intelligibility and maintain communicative independence and quality of life. 3. Kayden will demonstrate independence with home exercise program to promote carryover of treatment results to functional conversation tasks and maintain speech intelligibility and good quality voice in presence of a progressive disease. Treatment Activities The patient completed the following: MPT = 13.4 w/ avg loudness of 73.8 dB. Range: 71 -76 Pitch Range: Highs, avg 71.1 dB; Lows, avg 68.0 dB. Functional Phrases: Pt read sentences with avg loudness of 72.5 dB. 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 Patient exhibited diplophonia across some tasks today with marked improvement in vocal quality and longer periods of a clear voice. Volume was lower throughout tasks, though pt benefitted from tapping on board with LOUD written on it to increase volume while describing pictures. Volume decreased with some off hand remarks and responding to questions, though Jaswant maintained loud volume for most off-hand comments and exhibited several instance of self-correction. Assessment Patient Response to Treatment Good Rehab Potential Excellent Impairments Identified Speech Intelligibility,Vocal Quality Progress Towards Goals Good Progress Assessment of Overall Progress Improving Assessment of Improvement The pt was responsive to all training and prompts. Pt benefitted from complete model of high and low exercises to achieve change in pitch and recall in which direction (increase or decrease pitch) to go, though fewer cues were needed than in previous sessions. Pt demonstrated consistent loudness across reading tasks, though had significant difficulty with reading and preferred picture description instead. Difficulty observed with maintaining high volume during picture description task. Loudness dropped to 60 dB in general conversation and with remarks about 40% of the time, with noted increased instances of Jaswant maintaining volume in comments. Noted improvement in Jaswant's vocal quality across tasks and with his self-monitoring of volume in general conversation. Reviewed with Patient Home Exercise Program Patient/Caregiver Understanding Good Plan Amount of Therapy Recommended 1-2 Months Frequency of Treatment Four Times a Week Length of Session 60 Minutes Therapeutic Contents Client Education,Home Exercise Program,Voice Training Provided Patient/Caregiver Instruction Home Exercise Program,Plan of Care,Questions/Concerns Therapy Recommendations Continue with Current Program
--- NOTE | 2021-06-24 11:43 | ST.OPTN ---
Visit Care Team Role Provider Type Mainor Mckenna MD Referring Provider Non-Staff Address: [address] [place] [address] [facility], [place], [address] Lenard Nance MD Attending Provider Physician Family Provider Primary Care Provider Address: [address] [place] [address], [address], [place], [address] DIGITAL COMMUNITY MANAGER Treatment Note DIGITAL COMMUNITY MANAGER Treatment Note Start: 06/03/21 08:58 Freq: Status: Active Protocol: Document 06/24/21 11:38 ZS (Rec: 06/24/21 11:43 ZS [id number]) Speech Pathology Treatment Note Session Time Visit Start Time 10:30 Visit Stop Time 11:30 Total Visit Minutes 60 Visit Information Visit Number 12 Plan of Care Dates 06/23/2021 - 07/11/2021 Insurance Information Medicare Setting Treatment Setting Outpatient Care Visit Type Note Type Treatment Note Next Note Type Next Note Type Treatment Note General Information General Information Kayden is a 75 year old male who was diagnosed with Parkinson's about 1 year ago and experiences a slight right hand tremor. He experienced increased hoarseness for about 1 year prior to the diagnosis . 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 Kayden reported he is frequently asked to repeat himself and will often have his fiance speak for him. His fiance reported he was a very outgoing and social person, but has been less social since his voice has decreased in quality and volume. Subjective Identification Type Name Identification Reconciled With Medical Record Others Present Family Observations/Patient Presentation Kayden arrived on time accompanied by his fiance, who was present for the session. No new complaints. Jaswant reported he did not complete the carryover assignment yesterday afternoon, but did do the exercises. Chief Complaint(s) Voice Patient/Caregiver Compliance with Home Excellent Exercise Program Objective Short Term Goals 1. Kayden will sustain phonation for 25 seconds with good quality voice at avg 80 dB to increase breath support for speech and vocal quality. 2. Kayden will produce pitch range WFL with good quality voice at avg 80 dB to increase prosody in speech and improve vocal quality. 3. Kayden will read functional phrases with good quality voice at avg 71 dB to improve/maintain speech intelligibility and promote carryover of good voicing in functional communication opportunities. 4. Kayden will produce structured speech tasks increasing in length and complexity over the course of treatment with good voicing at normal conversational levels (65-75 dB) to increase endurance of good quality voice and breath support for functional conversation. Alf Goals 1. Kayden will perform structured voice tasks (e.g., sustained phonation, pitch range, reading tasks) with voicing, including loudness levels, WNL to increase speech intelligibility and good quality voice. 2. Kayden will produce spontaneous conversation with multiple conversation partners and in a variety of environments with loudness levels and vocal quality WNL in 80% of opportunities to increase speech intelligibility and maintain communicative independence and quality of life. 3. Kayden will demonstrate independence with home exercise program to promote carryover of treatment results to functional conversation tasks and maintain speech intelligibility and good quality voice in presence of a progressive disease. Treatment Activities The patient completed the following: MPT = 13.6 w/ avg loudness of 73.6 dB. Range: 71 -75 Pitch Range: Highs, avg 72 dB; Lows, avg 71.6 dB. Functional Phrases: Pt read sentences with avg loudness of 72 dB. Reading Paragraphs: Pt described a picture with avg loudness of 68 dB Carryover Assignment: Pt verbalized intention to order food/drink today. Patient exhibited increased diplophonia today. Pt maintained good volume with most off hand remarks and responding to questions and exhibited several instance of self-correction when his volume dropped. Difficulty observed with maintaining volume during picture description task, though volume increased when he was excited about a picture. Assessment Patient Response to Treatment Good Rehab Potential Excellent Impairments Identified Speech Intelligibility,Vocal Quality Progress Towards Goals Good Progress Assessment of Overall Progress Improving Assessment of Improvement The pt was responsive to all training and prompts. Pt benefitted from sequencing high and low exercises rather than them to achieve increased pitch range and reduce confusion in exercises. Difficulty observed with maintaining high volume during picture description task. Reviewed with Patient Home Exercise Program Patient/Caregiver Understanding Good Plan Amount of Therapy Recommended 1-2 Months Frequency of Treatment Four Times a Week Length of Session 60 Minutes Therapeutic Contents Client Education,Home Exercise Program,Voice Training Provided Patient/Caregiver Instruction Home Exercise Program,Plan of Care,Questions/Concerns Therapy Recommendations Continue with Current Program
--- NOTE | 2021-06-25 14:07 | ST.OPTN ---
Visit Care Team Role Provider Type Mainor Mckenna MD Referring Provider Non-Staff Address: [address] [place] [address] [facility], [place], [address] Lenard Nance MD Attending Provider Physician Family Provider Primary Care Provider Address: [address] [place] [address], [address], [place], [address] OPTIMIZATION CONSULTANT Treatment Note OPTIMIZATION CONSULTANT Treatment Note Start: 06/03/21 08:58 Freq: Status: Active Protocol: Document 06/25/21 14:01 NANCY (Rec: 06/25/21 14:07 ZS [id number]) Speech Pathology Treatment Note Session Time Visit Start Time 11:30 Visit Stop Time 12:30 Total Visit Minutes 60 Visit Information Visit Number 13 Plan of Care Dates 06/23/2021 - 07/11/2021 Insurance Information Medicare Setting Treatment Setting Outpatient Care Next Note Type Next Note Type Treatment Note General Information General Information Kayden is a 75 year old male who was diagnosed with Parkinson's about 1 year ago and experiences a slight right hand tremor. He experienced increased hoarseness for about 1 year prior to the diagnosis . 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 Kayden reported he is frequently asked to repeat himself and will often have his fiance speak for him. His fiance reported he was a very outgoing and social person, but has been less social since his voice has decreased in quality and volume. Subjective Identification Type Name Identification Reconciled With Medical Record Others Present Family Observations/Patient Presentation Kayden arrived on time accompanied by his fiance, who was present for the session. No new complaints. Jaswant reported he did not complete the carryover assignment yesterday afternoon. Chief Complaint(s) Voice Patient/Caregiver Compliance with Home Fair Exercise Program Objective Short Term Goals 1. Kayden will sustain phonation for 25 seconds with good quality voice at avg 80 dB to increase breath support for speech and vocal quality. 2. Kayden will produce pitch range WFL with good quality voice at avg 80 dB to increase prosody in speech and improve vocal quality. 3. Kayden will read functional phrases with good quality voice at avg 71 dB to improve/maintain speech intelligibility and promote carryover of good voicing in functional communication opportunities. 4. Kayden will produce structured speech tasks increasing in length and complexity over the course of treatment with good voicing at normal conversational levels (65-75 dB) to increase endurance of good quality voice and breath support for functional conversation. Senior Living Goals 1. Kayden will perform structured voice tasks (e.g., sustained phonation, pitch range, reading tasks) with voicing, including loudness levels, WNL to increase speech intelligibility and good quality voice. 2. Kayden will produce spontaneous conversation with multiple conversation partners and in a variety of environments with loudness levels and vocal quality WNL in 80% of opportunities to increase speech intelligibility and maintain communicative independence and quality of life. 3. Kayden will demonstrate independence with home exercise program to promote carryover of treatment results to functional conversation tasks and maintain speech intelligibility and good quality voice in presence of a progressive disease. Treatment Activities The patient completed the following: MPT = 13.1 w/ avg loudness of 72.4 dB. Range: 71 -73 Pitch Range: Highs, avg 69.4 dB; Lows, avg 69.4 dB. Functional Phrases: Pt read sentences with avg loudness of 72.6 dB. Conversation: Pt participated in conversation with avg loudness of 66.2 dB Carryover Assignment: Pt verbalized intention to talk loudly with fiance this afternoon. Patient exhibited decreased diplophonia today. Pt maintained good volume with most off hand remarks and responding to questions and exhibited several instance of self-correction when his volume dropped. Difficulty observed with maintaining volume during conversation despite visual and verbal cues to be louder. Assessment Patient Response to Treatment Good Rehab Potential Excellent Impairments Identified Speech Intelligibility,Vocal Quality Progress Towards Goals Good Progress Assessment of Overall Progress Improving Assessment of Improvement The pt was responsive to all training and prompts. Pt benefitted from sequencing high and low exercises rather than them to achieve increased pitch range and reduce confusion in exercises. Difficulty observed with maintaining high volume during conversation despite verbal and visual cues. Reviewed with Patient Home Exercise Program Patient/Caregiver Understanding Good Plan Amount of Therapy Recommended 1-2 Months Frequency of Treatment Four Times a Week Length of Session 60 Minutes Therapeutic Contents Client Education,Home Exercise Program,Voice Training Provided Patient/Caregiver Instruction Home Exercise Program,Plan of Care,Questions/Concerns Therapy Recommendations Continue with Current Program
--- NOTE | 2021-06-26 15:37 | ST.OPTN ---
Visit Care Team Role Provider Type Mainor Mckenna MD Referring Provider Non-Staff Address: [address] [facility], [place], [address] Lenard Nance MD Attending Provider Physician Family Provider Primary Care Provider Address: [address] [place] [address], [address], [place], [address] LOCAL AREA NETWORK ADMINISTRATOR Treatment Note LOCAL AREA NETWORK ADMINISTRATOR Treatment Note Start: 06/03/21 08:58 Freq: Status: Active Protocol: Document 06/26/21 15:32 ZS (Rec: 06/26/21 15:37 ZS [id number]) Speech Pathology Treatment Note Session Time Visit Start Time 13:30 Visit Stop Time 14:30 Total Visit Minutes 60 Visit Information Visit Number 14 Plan of Care Dates 06/23/2021 - 07/11/2021 Insurance Information Medicare Setting Treatment Setting Outpatient Care Visit Type Note Type Treatment Note Next Note Type Next Note Type Treatment Note General Information General Information Kayden is a 75 year old male who was diagnosed with Parkinson's about 1 year ago and experiences a slight right hand tremor. He experienced increased hoarseness for about 1 year prior to the diagnosis . 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 Kayden reported he is frequently asked to repeat himself and will often have his fiance speak for him. His fiance reported he was a very outgoing and social person, but has been less social since his voice has decreased in quality and volume. Subjective Identification Type Name Identification Reconciled With Medical Record Others Present Family Observations/Patient Presentation Kayden arrived on time accompanied by his fiance, who was present for the session. No new complaints. Jaswant reported he did not complete the carryover assignment yesterday afternoon. Chief Complaint(s) Voice Patient/Caregiver Compliance with Home Fair Exercise Program Objective Short Term Goals 1. Kayden will sustain phonation for 25 seconds with good quality voice at avg 80 dB to increase breath support for speech and vocal quality. 2. Kayden will produce pitch range WFL with good quality voice at avg 80 dB to increase prosody in speech and improve vocal quality. 3. Kayden will read functional phrases with good quality voice at avg 71 dB to improve/maintain speech intelligibility and promote carryover of good voicing in functional communication opportunities. 4. Kayden will produce structured speech tasks increasing in length and complexity over the course of treatment with good voicing at normal conversational levels (65-75 dB) to increase endurance of good quality voice and breath support for functional conversation. Intensive Care Unit Nurse Goals 1. Kayden will perform structured voice tasks (e.g., sustained phonation, pitch range, reading tasks) with voicing, including loudness levels, WNL to increase speech intelligibility and good quality voice. 2. Kayden will produce spontaneous conversation with multiple conversation partners and in a variety of environments with loudness levels and vocal quality WNL in 80% of opportunities to increase speech intelligibility and maintain communicative independence and quality of life. 3. Kayden will demonstrate independence with home exercise program to promote carryover of treatment results to functional conversation tasks and maintain speech intelligibility and good quality voice in presence of a progressive disease. Treatment Activities The patient completed the following: MPT = 12.8 w/ avg loudness of 73 dB. Range: 72- 74 Pitch Range: Highs, avg 70.6 dB; Lows, avg 70.6 dB. Functional Phrases: Pt read sentences with avg loudness of 74.5 dB. Conversation: Pt participated in conversation with avg loudness of 67.6 dB Carryover Assignment: Pt verbalized intention to order dinner at a restaurant this weekend. Patient exhibited decreased diplophonia today and benefitted from yawn-like breathing exercises to reduce diplophonia. Pt maintained good volume with most off hand remarks and responding to questions and exhibited several instance of self- correction when his volume dropped. Difficulty observed with maintaining volume during conversation despite visual and verbal cues to be louder. He benefitted from revisiting functional phrases to remind himself of the target volume and use of background noise to prompt him to speak louder. Assessment Patient Response to Treatment Good Rehab Potential Excellent Impairments Identified Speech Intelligibility,Vocal Quality Progress Towards Goals Good Progress Assessment of Overall Progress Improving Assessment of Improvement The pt was responsive to all training and prompts. Pt continues to benefit from sequencing high and low exercises rather than them to achieve increased pitch range and reduce confusion in exercises. Continuing ah with step increases in pitch appeared to help increase clarity and loudness of notes. Difficulty observed with maintaining high volume during conversation despite verbal and visual cues . He benefitted from revisiting functional phrases to remind himself of the target volume and use of background noise to prompt him to speak louder. Reviewed with Patient Home Exercise Program Patient/Caregiver Understanding Good Plan Amount of Therapy Recommended 1-2 Months Frequency of Treatment Four Times a Week Length of Session 60 Minutes Therapeutic Contents Client Education,Home Exercise Program,Voice Training Provided Patient/Caregiver Instruction Home Exercise Program,Plan of Care,Questions/Concerns Therapy Recommendations Continue with Current Program
--- NOTE | 2021-06-30 13:37 | ST.OPTN ---
Visit Care Team Role Provider Type Mainor Mckenna MD Referring Provider Non-Staff Address: [address] [place] [address] [id number], [place], [address] Lenard Nance MD Attending Provider Physician Family Provider Primary Care Provider Address: [address] [place] [address], [address], [place], [address] HOME HEALTH CLINICIAN Treatment Note HOME HEALTH CLINICIAN Treatment Note Start: 06/03/21 08:58 Freq: Status: Active Protocol: Document 06/30/21 13:34 ZS (Rec: 06/30/21 13:37 ZS [id number]) Speech Pathology Treatment Note Session Time Visit Start Time 11:30 Visit Stop Time 12:30 Total Visit Minutes 60 Visit Information Visit Number 15 Plan of Care Dates 06/23/2021 - 07/11/2021 Insurance Information Medicare Setting Treatment Setting Outpatient Care Visit Type Note Type Treatment Note Next Note Type Next Note Type Discharge Summary General Information General Information Kayden is a 75 year old male who was diagnosed with Parkinson's about 1 year ago and experiences a slight right hand tremor. He experienced increased hoarseness for about 1 year prior to the diagnosis . 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 Kayden reported he is frequently asked to repeat himself and will often have his fiance speak for him. His fiance reported he was a very outgoing and social person, but has been less social since his voice has decreased in quality and volume. Subjective Identification Type Name Identification Reconciled With Medical Record Others Present Family Observations/Patient Presentation Kayden arrived on time for the session. He reported increased phlegm today. Chief Complaint(s) Voice Patient/Caregiver Compliance with Home Fair Exercise Program Objective Short Term Goals 1. Kayden will sustain phonation for 25 seconds with good quality voice at avg 80 dB to increase breath support for speech and vocal quality. 2. Kayden will produce pitch range WFL with good quality voice at avg 80 dB to increase prosody in speech and improve vocal quality. 3. Kayden will read functional phrases with good quality voice at avg 71 dB to improve/maintain speech intelligibility and promote carryover of good voicing in functional communication opportunities. 4. Kayden will produce structured speech tasks increasing in length and complexity over the course of treatment with good voicing at normal conversational levels (65-75 dB) to increase endurance of good quality voice and breath support for functional conversation. Care Home Goals 1. Kayden will perform structured voice tasks (e.g., sustained phonation, pitch range, reading tasks) with voicing, including loudness levels, WNL to increase speech intelligibility and good quality voice. 2. Kayden will produce spontaneous conversation with multiple conversation partners and in a variety of environments with loudness levels and vocal quality WNL in 80% of opportunities to increase speech intelligibility and maintain communicative independence and quality of life. 3. Kayden will demonstrate independence with home exercise program to promote carryover of treatment results to functional conversation tasks and maintain speech intelligibility and good quality voice in presence of a progressive disease. Treatment Activities The patient completed the following: MPT = 14.1 w/ avg loudness of 72.6 dB. Range: 70 -74 Pitch Range: Highs, avg 73.3 dB; Lows, avg 73.3 dB. Functional Phrases: Pt read sentences with avg loudness of 73.6 dB. Conversation: Pt participated in conversation with avg loudness of 69.5 dB Carryover Assignment: Pt verbalized intention to order dinner at a restaurant this evening. Patient exhibited decreased diplophonia today. Pt maintained good volume with most off hand remarks and responding to questions. Difficulty observed with maintaining volume during conversation despite visual and verbal cues to be louder. He benefitted from revisiting functional phrases to remind himself of the target volume. Assessment Patient Response to Treatment Good Rehab Potential Excellent Impairments Identified Speech Intelligibility,Vocal Quality Progress Towards Goals Good Progress Assessment of Overall Progress Improving Assessment of Improvement The pt was responsive to all training and prompts. Pt continues to benefit from sequencing high and low exercises rather than them to achieve increased pitch range and reduce confusion in exercises. Continuing ah with step increases in pitch appeared to help increase clarity and loudness of notes. Difficulty observed with maintaining high volume during conversation despite verbal and visual cues . He benefitted from revisiting functional phrases to remind himself of the target volume. Reviewed with Patient Home Exercise Program Patient/Caregiver Understanding Good Plan Amount of Therapy Recommended 1-2 Months Frequency of Treatment Four Times a Week Length of Session 60 Minutes Therapeutic Contents Client Education,Home Exercise Program,Voice Training Provided Patient/Caregiver Instruction Home Exercise Program,Plan of Care,Questions/Concerns Therapy Recommendations Continue with Current Program
--- NOTE | 2021-07-01 12:47 | ST.OPTN ---
Visit Care Team Role Provider Type Mainor Mckenna MD Referring Provider Non-Staff Address: [address] [place] [address] [id number], [place], [address] Lenard Nance MD Attending Provider Physician Family Provider Primary Care Provider Address: [address] [place] [address], [address], [place], [address] ARCHIVES TECHNICIAN Treatment Note ARCHIVES TECHNICIAN Treatment Note Start: 06/03/21 08:58 Freq: Status: Active Protocol: Document 07/01/21 12:18 ZS (Rec: 07/01/21 12:35 ZS [id number]) Speech Pathology Treatment Note Session Time Visit Start Time 10:30 Visit Stop Time 11:30 Total Visit Minutes 60 Visit Information Visit Number 16 Plan of Care Dates 06/23/2021 - 07/11/2021 Insurance Information Medicare Setting Treatment Setting Outpatient Care Visit Type Note Type Discharge Summary General Information General Information Kayden is a 75 year old male who was diagnosed with Parkinson's about 1 year ago and experiences a slight right hand tremor. He experienced increased hoarseness for about 1 year prior to the diagnosis . 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 Kayden reported he is frequently asked to repeat himself and will often have his fiance speak for him. His fiance reported he was a very outgoing and social person, but has been less social since his voice has decreased in quality and volume. Subjective Identification Type Name Identification Reconciled With Medical Record Others Present Family Observations/Patient Presentation Kayden arrived on time accompanied by his fiance, who was present for the session. He reported stomach pain related to medications today. Chief Complaint(s) Voice Patient/Caregiver Compliance with Home Fair Exercise Program Objective Short Term Goals 1. Kayden will sustain phonation for 25 seconds with good quality voice at avg 80 dB to increase breath support for speech and vocal quality. - Goal not met, progress made. Jaswant sustained phonation for 15 seconds with good quality voice at an avg 72 dB. 2. Kayden will produce pitch range WFL with good quality voice at avg 80 dB to increase prosody in speech and improve vocal quality. - Goal not met , progress made. Jaswant produced pitch range WFL with good quality voice at avg 71.8 dB 3. Kayden will read functional phrases with good quality voice at avg 71 dB to improve/maintain speech intelligibility and promote carryover of good voicing in functional communication opportunities. - Goal met. 4. Kayden will produce structured speech tasks increasing in length and complexity over the course of treatment with good voicing at normal conversational levels (65-75 dB) to increase endurance of good quality voice and breath support for functional conversation. - Goal met. Digital Content Specialist Goals 1. Kayden will perform structured voice tasks (e.g., sustained phonation, pitch range, reading tasks) with voicing, including loudness levels, WNL to increase speech intelligibility and good quality voice. 2. Kayden will produce spontaneous conversation with multiple conversation partners and in a variety of environments with loudness levels and vocal quality WNL in 80% of opportunities to increase speech intelligibility and maintain communicative independence and quality of life. 3. Kayden will demonstrate independence with home exercise program to promote carryover of treatment results to functional conversation tasks and maintain speech intelligibility and good quality voice in presence of a progressive disease. Treatment Activities The patient completed the following: MPT = 13.94 w/ avg loudness of 72.6 dB. Range: 66 -75 Pitch Range: Highs, avg 71.8 dB; Lows, avg 71.8 dB. Functional Phrases: Pt read sentences with avg loudness of 73.2 dB. Conversation: Pt participated in conversation with avg loudness of 67.3 dB Patient exhibited intermittent diplophonia today with increased strain on sustained ah and pitch glides. Pt maintained good volume with most off hand remarks and responding to questions. Difficulty observed with maintaining volume during conversation despite visual and verbal cues to be louder. He benefitted from use of background noise to increase volume. Pt completed VHI: Functional Scale: 11 (improved from 22 at SOC); Physical Scale: 12 (improved from 15 at SOC); Emotional Scale: 7 ( improved from 52 at SOC); Total: 30, Mild-Moderate ( improved from 52, Moderate at SOC). Administered CAPE-V: Overall Severity 32%, Moderate (improved from 50% Moderate- severe at SOC); Roughness 38% Moderate, intermittent; Breathiness 15%, Mild ( improved from 49% Moderate- severe at SOC); Strain 58% Moderately-severe (improved from 84%, Severe at SOC); Pitch WNL (unchanged since SOC ); Loudness 15%, Mild ( improved from 62% Moderately- Severe at SOC). Voice recordings were played back for comparison. Both pt and ARCHIVES TECHNICIAN perceived improved stability of voice, increased loudness, and increased clarity. Assessment Patient Response to Treatment Excellent Rehab Potential Excellent Impairments Identified Speech Intelligibility,Vocal Quality Progress Towards Goals Good Progress,Appropriate for Discharge Assessment of Overall Progress Improving Assessment of Improvement Over the course of treatment, the pt has demonstrated excellent improvement in speech intelligibility from reduced breathiness and diplophonia, greater stability of voice, clarity, greater pitch range in structured tasks and prosody in speech, and increased loudness. Loudness is particularly improved in sustained ah tasks and conversation, while the pt continues to require occasional prompts to increase loudness in short, off-the- cuff remarks. The pt has been compliant with HEP throughout treatment with occasional omission of carryover exercises. He has expressed an interest in, and would be an excellent candidate for, the [facility] program, which will hopefully be available in the community when the COVID-19 PHE is over. The pt has successfully completed the [facility]Loud program and is discharged at this time. It is recommended that he return for follow-up in 3-6 months to boost skills as needed and promote long- term positive effects. Reviewed with Patient Goals,Progress Being Made,Home Exercise Program Patient/Caregiver Understanding Good Plan Amount of Therapy Recommended 1-2 Months Frequency of Treatment Four Times a Week Length of Session 60 Minutes Therapeutic Contents Client Education,Home Exercise Program,Voice Training Provided Patient/Caregiver Instruction Home Exercise Program,Plan of Care,Questions/Concerns Therapy Recommendations Discharge to Home Exercise Program
== END 2021-07-01 13:15 ==
LOC: SP 10:30
PROVIDERS: Family Provider Family Medicine; PCP Family Medicine; Referring Provider Psychiatry & Neurology Neurology; Visit Provider Family Medicine
DX: G20 Parkinson's disease (principal)
CPT/HCPCS: 92507; 92524

== ENCOUNTER 2021-11-02 20:07 | Emergency (ER) | payer MEDICARE, OTHER, SELFPAY ==
[2021-11-02] VITALS (10 sets, daily range): BP systolic 161–179; BP diastolic 84–102; PULSE 63–78; RESP 16–19; TEMP 36.8; O2SAT 95–99; BMI 25.0
--- NOTE | 2021-11-02 20:25 | DI.RAD.S_ITS ---
PROCEDURE: XR ACUTE ABDOMEN SERIES INDICATIONS: acute constipation? TECHNIQUE: One view chest and two views of the abdomen were acquired. COMPARISON: None. FINDINGS: Surgical changes and devices: Surgical clips are the demonstrated in the right upper quadrant. Chest: Lungs demonstrate no acute consolidation. Heart size is normal. No pleural effusions. No pneumoperitoneum. Abdomen: Bowel gas pattern is nonspecific with a few gas distended loops of small bowel in the right upper quadrant measuring up to 3.2 cm with scattered air-fluid levels. There is gas and stool demonstrated throughout the colon with a moderate amount of stool distention. No suspicious calcifications. Bones: No suspicious bony lesions. IMPRESSION: 1. Nonspecific mild gas distention of small bowel loops in the right upper quadrant with scattered air-fluid levels. The findings may reflect an ileus, gastroenteritis, or developing bowel obstruction. 2. Moderate amount of colonic stool distention may reflect constipation as clinically queried. Dictated by: Javi Sellers M.D. on 11/02/2021 at 21:29 Approved by: Javi Sellers M.D. on 11/02/2021 at 21:31
[2021-11-02 20:38] LABS: Appearance Urine UA CLEAR; Bilirubin Urine UA NEGATIVE (NEGATIVE); Color Urine UA YELLOW; Glucose Urine UA NEGATIVE (Negative); Ketones Urine UA TRACE (NEGATIVE); Leukocyte Esterase Urine UA NEGATIVE (NEGATIVE); Nitrite Urine UA NEGATIVE (Negative); Occult Blood Urine UA 2+ (Negative); Protein Urine UA 1+ (Negative); Specific Gravity Urine UA >=1.030 (1.000-1.035); pH Urine UA 5.5 (4.5-8.0)
[2021-11-02 20:44] LABS: Amorphous Sediment Urine 1+; Bacteria Urine None Seen; Culture Indicated Urine Cult Not Indicated; Mucus Urine 2+ (Negative); RBC Urine 5-10/HPF (0-5/HPF); Squamous Epithelial Cell Urine 0-1 /HPF (0-5/HPF); WBC Urine 1-5/HPF (0-5/HPF)
--- NOTE | 2021-11-02 20:53 | ED.ABDPAIN ---
HPI - Abdominal Pain General Chief Complaint: Abdominal Pain Stated Complaint: CONSTIPATED, ABD PAIN, PARKINSON Time Seen by Provider: 11/02/21 20:53 History of Present Illness HPI narrative: 75-year-old male nonsmoker with history of hypertension and newly started on Parkinson's meds including levodopa presents with his in the chief complaint of constipation and decreased bowel movements for the past few days. He has also felt generally a bit under the weather and. He has no headache or blurred vision but has had some nasal congestion and scratchy throat. He has no chest pain or shortness of breath but has had some dry cough. He denies nausea or vomiting but has had episodes of generalized abdominal pain that seem to come and go without any specific pattern. He is still passing gas but has had decreased oral intake and decreased bowel movements for the past few days. He denies any urinary complaints such as dysuria, frequency or urgency. Related Data Home Medications Medication Instructions Recorded Confirmed ASPIRIN (Aspirin Low Dose) 81 mg PO ##0 12/25/06 HYDROCHLOROTHIAZIDE (Hydrodiuril / 0 PO * UK DOSE/FREQUENCY ##0 12/25/06 Hctz) LISINOPRIL (Zestril / Prinivil) 0 PO *UK DOSE/FREQUENCY ##0 12/25/06 lovastatin 10 mg tablet 10 mg ##0 12/11/15 Previous Rx's Medication Instructions Recorded amoxicillin 500 mg-potassium 500 mg PO Q12H #14 tabs 12/11/15 clavulanate 125 mg tablet (Augmentin) nirmatrelvir 300 mg (150 mg x See Rx Instructions PO .COMPLEX 11/03/21 2)-ritonavir 100 mg tablet (EUA) #30 tabs (Paxlovid 300 mg () Allergies Allergy/AdvReac Type Severity Reaction Status Date / Time INGREDIENT: NKDA - NO KNOWN Allergy Unknown Uncoded 08/11/17 11:49 DRUG ALLERGIES Review of Systems Review of Systems Narrative: GENERAL: See HPI HEENT: See HPI RESPIRATORY: Denies dyspnea, cough, wheezing, hemoptysis, sputum. CARDIOVASCULAR: Denies chest pain, palpitations, orthopnea, edema, GASTROINTESTINAL: See HPI. : Denies dysuria, frequency, incontinence, hematuria, urinary retention. MUSCULOSKELETAL: denies weakness, joint pain, or bony pain SKIN: Denies rash, skin lesions, or other NEUROLOGIC: Denies weakness, headache, numbness, change in speech, confusion, seizures, incoordination. PSYCHIATRIC: No concerning psychosocial issues. 12 point review of systems is negative except for those stated above Exam Narrative Exam Narrative: GENERAL: [75] year old patient appears stated age. Well-developed patient, in mild distress. HEAD: Atraumatic. Normocephalic. EYES: Pupils equal round and reactive. Extraocular motions intact. No scleral icterus. No injection or drainage. ENT: Dry mucous membranes Nose without bleeding, purulent drainage. Throat without erythema, tonsillar hypertrophy or exudate. Airway patent. NECK: Trachea midline. Non tender CARDIOVASCULAR: Regular rate and rhythm without murmurs, gallops, or rubs. RESPIRATORY: Clear to auscultation. Breath sounds equal bilaterally. No wheezes, rales, or rhonchi. GASTROINTESTINAL: Abdomen soft, non-tender, nondistended. Bowel sounds present in all 4 quadrants EXTREMITIES: No edema or joint tenderness. BACK: Nontender without deformity or crepitance. No flank tenderness. NEURO: AOx3. SKIN: No rash or erythema of visible areas Initial Vital Signs Initial Vital Signs: Vital Signs Temperature 98.3 F 11/02/21 20:20 Pulse Rate 78 11/02/21 20:20 Respiratory Rate 16 11/02/21 20:20 Blood Pressure 179/101 H 11/02/21 20:20 Pulse Oximetry 99 11/02/21 20:20 Oxygen Delivery Method 11/02/21 20:20 Course Orders Ordered: ED Orders 11/02/21 20:24 EKG-12 Lead Stat 11/02/21 20:25 XR acute abdomen series Stat 11/02/21 20:30 COVID19 -Nasal RAPID/Pre-Proc Stat Urinalysis and Microscopic Stat 11/02/21 20:55 Complete Blood Count AUTO DIFF Stat Comprehensive Metabolic Panel Stat Lipase Stat Partial Thromboplastin Time Stat Prothrombin Time INR Stat 11/02/21 21:48 CT abdomen pelvis w con Stat Discontinued Medications Sodium Chloride (Normal Saline 0.9%) 500 mls @ 1,000 mls/hr IV BOLUS ONE Stop: 11/02/21 22:18 Last Infusion: 11/02/21 22:42 Dose: 0 mls/hr Documented By: Admin: 11/02/21 22:01 Dose: 1,000 mls/hr Documented By: TORI Sodium Chloride (Normal Saline 0.9%) 500 mls @ 1,000 mls/hr IV BOLUS ONE Stop: 11/03/21 00:35 Last Infusion: 11/03/21 00:53 Dose: 0 mls/hr Documented By: Admin: 11/03/21 00:12 Dose: 1,000 mls/hr Documented By: TORI Reevaluation(s) Reevaluation #1: Patient feels significant improvement after receiving IV fluids as stated. Vital Signs Vital signs: Vital Signs - 8 hr 11/02/21 20:20 11/02/21 20:58 11/02/21 20:58 Temperature 98.3 F Pulse Rate 78 69 Respiratory Rate 16 Blood Pressure 179/101 H 162/102 H Pulse Oximetry 99 97 Oxygen Delivery Method Room Air 11/02/21 21:00 11/02/21 21:00 11/02/21 21:30 Temperature Pulse Rate 67 64 Respiratory Rate 17 19 Blood Pressure 163/100 H Pulse Oximetry 96 97 Oxygen Delivery Method 11/02/21 22:00 11/02/21 22:01 11/02/21 22:01 Temperature Pulse Rate 66 64 Respiratory Rate 16 18 Blood Pressure 161/89 H Pulse Oximetry 95 97 Oxygen Delivery Method 11/02/21 22:30 11/02/21 22:30 11/02/21 22:57 Temperature Pulse Rate 66 67 Respiratory Rate 16 Blood Pressure 164/99 H Pulse Oximetry 98 96 Oxygen Delivery Method 11/02/21 22:57 11/02/21 23:00 11/02/21 23:00 Temperature Pulse Rate 67 Respiratory Rate 17 Blood Pressure 171/91 H 171/84 H Pulse Oximetry 97 Oxygen Delivery Method 11/02/21 23:30 11/02/21 23:30 11/03/21 00:00 Temperature Pulse Rate 63 Respiratory Rate 18 Blood Pressure 167/97 H 178/97 H Pulse Oximetry 96 Oxygen Delivery Method 11/03/21 00:00 11/03/21 00:30 11/03/21 00:31 Temperature Pulse Rate 106 H 65 Respiratory Rate 22 Blood Pressure 165/92 H Pulse Oximetry 96 96 Oxygen Delivery Method 11/03/21 00:31 Temperature Pulse Rate 65 Respiratory Rate Blood Pressure Pulse Oximetry 96 Oxygen Delivery Method MDM - Abdominal Pain Lab Data Result diagrams: 11/02/21 20:55 07/03/22 20:55 Labs: Lab Results 11/02/21 11/02/21 11/02/21 Range/Units 20:30 20:30 20:55 WBC 8.2 (4.5-11.0) X10^3/uL RBC 4.84 (4.5-5.9) X10^6/uL Hgb 14.3 (13.5-17.5) g/dL Hct 43.0 (41-53) % MCV 88.8 (80-100) fL MCH 29.6 (26-34) PG MCHC 33.3 (30-36) % RDW 13.6 (11.6-14.8) % Plt Count 187 (150-400) X10^3/uL Neut % (Auto) 81.6 H (50-75) % Lymph % (Auto) 3.9 L (25-40) % [place] % (Auto) 14.4 H (3-14) % Eos % (Auto) 0.0 L (2-4) % Baso % (Auto) 0.1 (0-2) % Neut # (Auto) 6700 (0123-7126) /uL Lymph # (Auto) 300 L (0814-4234) /uL [place] # (Auto) 1200 H (0-900) /uL Eos # (Auto) 0 (0-450) /uL Baso # (Auto) 0 (0-100) /uL PT (10.1-12.7) SECONDS INR (0.9-1.3) APTT (26.4-36.2) SECONDS Sodium (137-145) mmol/L Potassium (3.4-5.1) mmol/L Chloride (98-107) mmol/L Carbon Dioxide (22-32) mmol/L BUN (9-20) mg/dL Creatinine (0.66-1.25) mg/dL Estimated GFR (>60) mL/min BUN/Creatinine Ratio (6-22) Glucose (80-110) mg/dL Calcium (8.4-10.2) mg/dL Total Bilirubin (0.2-1.3) mg/dL AST (17-59) IU/L ALT (<50) IU/L Alkaline Phosphatase (38-126) U/L Total Protein (6.3-8.2) g/dL Albumin (3.5-5.0) g/dL Globulin (1.7-4.1) g/dL Albumin/Globulin Ratio (1.0-2.8) Lipase (23-300) U/L Urine Color Yellow Urine Appearance Clear Urine pH 5.5 (4.5-8.0) Ur Specific [place] >=1.030 H (1.000-1.035) Urine Protein 1+ H (Negative) Urine Glucose (UA) Negative (Negative) g/dL Urine Ketones Trace H (NEGATIVE) Urine Occult Blood 2+ H (Negative) Urine Nitrate Negative (Negative) Urine Bilirubin Negative (NEGATIVE) Urine Urobilinogen 1.0 (0.2) E.U./dL Ur Leukocyte Esterase Negative (NEGATIVE) Urine RBC 5-10/hpf H (0-5/HPF) Urine WBC 1-5/hpf (0-5/HPF) Ur Squamous Epith Cells 0-1 /hpf (0-5/HPF) Amorphous Sediment 1+ Urine Bacteria None seen (None) Urine Mucus 2+ H (Negative) Ur Culture Indicated? Cult not indicated SARS-CoV-2 (PCR) Positive H (Negative) 11/02/21 11/02/21 Range/Units 20:55 20:55 WBC (4.5-11.0) X10^3/uL RBC (4.5-5.9) X10^6/uL Hgb (13.5-17.5) g/dL Hct (41-53) % MCV (80-100) fL MCH (26-34) PG MCHC (30-36) % RDW (11.6-14.8) % Plt Count (150-400) X10^3/uL Neut % (Auto) (50-75) % Lymph % (Auto) (25-40) % [place] % (Auto) (3-14) % Eos % (Auto) (2-4) % Baso % (Auto) (0-2) % Neut # (Auto) (3452-1598) /uL Lymph # (Auto) (2545-6261) /uL [place] # (Auto) (0-900) /uL Eos # (Auto) (0-450) /uL Baso # (Auto) (0-100) /uL PT 15.0 H (10.1-12.7) SECONDS INR 1.3 (0.9-1.3) APTT 29 (26.4-36.2) SECONDS Sodium 138 (137-145) mmol/L Potassium 3.8 (3.4-5.1) mmol/L Chloride 102 (98-107) mmol/L Carbon Dioxide 26 (22-32) mmol/L BUN 16 (9-20) mg/dL Creatinine 0.78 (0.66-1.25) mg/dL Estimated GFR > 60 (>60) mL/min BUN/Creatinine Ratio 20.5 (6-22) Glucose 128 H (80-110) mg/dL Calcium 9.5 (8.4-10.2) mg/dL Total Bilirubin 4.1 H (0.2-1.3) mg/dL AST 23 (17-59) IU/L ALT 11 (<50) IU/L Alkaline Phosphatase 52 (38-126) U/L Total Protein 7.7 (6.3-8.2) g/dL Albumin 4.4 (3.5-5.0) g/dL Globulin 3.3 (1.7-4.1) g/dL Albumin/Globulin Ratio 1.3 (1.0-2.8) Lipase 55 (23-300) U/L Urine Color Urine Appearance Urine pH (4.5-8.0) Ur Specific [place] (1.000-1.035) Urine Protein (Negative) Urine Glucose (UA) (Negative) g/dL Urine Ketones (NEGATIVE) Urine Occult Blood (Negative) Urine Nitrate (Negative) Urine Bilirubin (NEGATIVE) Urine Urobilinogen (0.2) E.U./dL Ur Leukocyte Esterase (NEGATIVE) Urine RBC (0-5/HPF) Urine WBC (0-5/HPF) Ur Squamous Epith Cells (0-5/HPF) Amorphous Sediment Urine Bacteria (None) Urine Mucus (Negative) Ur Culture Indicated? SARS-CoV-2 (PCR) (Negative) Imaging Data Abdominal x-ray: Radiologist's Impression: [address] [address] XRay Report Signed Patient: Kayden Valero MR#: [id number] : 1945 Acct:[id number] Age/Sex: 75 / M Date of Service: 11/02/21 Loc: ED Accession Number: [id number] ?? Procedure: XR acute abdomen series Ordering Provider: Jose Cortez D.O. PROCEDURE:? XR ACUTE ABDOMEN SERIES ? INDICATIONS:? acute constipation? ? TECHNIQUE:? One view chest and two views of the abdomen were acquired.? ? COMPARISON:? None. ? FINDINGS:? ? Surgical changes and devices:? Surgical clips are the demonstrated in the right upper quadrant.? ? Chest:? Lungs demonstrate no acute consolidation.? Heart size is normal.? No pleural effusions.? No pneumoperitoneum.? ? Abdomen:? Bowel gas pattern is nonspecific with a few gas distended loops of small bowel in the right upper quadrant measuring up to 3.2 cm with scattered air-fluid levels.? There is gas and stool demonstrated throughout the colon with a moderate amount of stool distention.? No suspicious calcifications.? ? Bones:? No suspicious bony lesions.? ? IMPRESSION:? ? 1. Nonspecific mild gas distention of small bowel loops in the right upper quadrant with scattered air-fluid levels.? The findings may reflect an ileus, gastroenteritis, or developing bowel obstruction. ? 2. Moderate amount of colonic stool distention may reflect constipation as clinically queried. ? ? Dictated by: Javi Sellers M.D. on 11/02/2021 at 21:29 ? ? Approved by: Javi Sellers M.D. on 11/02/2021 at 21:31 ? CT scan - abdomen/pelvis: Radiologist's Impression: Close Abdomen/Pelvis CT (Signed) Javi Sellers - 11/02/21 Chest/Abdomen X-ray (Signed) Javi Sellers - 11/02/21 Shoulder X-Ray (Signed) Mu Wiggins - 05/17/20 Thyroid Ultrasound (Signed) Mu Wiggins - 05/25/18 [place] [address] CT Scan Report Signed Patient: Kayden Valero MR#: [id number] : 1945 Acct:[id number] Age/Sex: 75 / M Date of Service: 11/02/21 Loc: ED Accession Number: [id number] ?? Procedure: CT abdomen pelvis w con Ordering Provider: Jose Cortez D.O. PROCEDURE:? CT ABDOMEN PELVIS W CON ? INDICATIONS:? severe abdominal pain, No BM, air fluid on xray ? TECHNIQUE:? After the administration of IV contrast, axial sections were acquired from the lung bases to the pubic symphysis.? Coronal and sagittal reformats were performed.? For radiation dose reduction, the following was used:? automated exposure control, adjustment of mA and/or kV according to patient size. ? COMPARISON:? [facility], CT, CHEST/ABD/PEL WITH CONTRAST, 10/29/2014, 8:37.? [facility], CR, XR ACUTE ABDOMEN SERIES, 11/02/2021, 20:49. ? FINDINGS:? Image quality:? Excellent.? ? Lung bases:? There is mild dependent atelectasis bilaterally.? ? Heart:? Heart is normal in size.? There is a small hiatal hernia. ? ? ABDOMEN: Liver:? No mass lesion. Gallbladder:? Surgically absent Biliary ducts:? No biliary ductal dilatation.? ? Pancreas:? Unremarkable.? ? Spleen:? Normal in size.? ? Adrenal Glands:? There is thickening of the left adrenal gland. Kidneys and Ureters:? No hydronephrosis.? Small bilateral renal cysts are redemonstrated. ?These include a small slightly hyperdense cyst extending posteromedially from the right kidney measuring 0.9 cm which appears decreased in size from the prior study. ? ? Stomach and Bowel:? Stomach, small bowel loops, and colon are normal in caliber and wall thickness.? The appendix is within normal limits.? There is colonic diverticulosis without acute diverticulitis.? A moderate amount of colonic stool may reflect constipation.? Peritoneum:? No abnormal intraperitoneal fluid.? No free air.? ? Ventral Wall: ? No hernia.? Abdominal Nodes:? No retroperitoneal or mesenteric adenopathy by size criteria.? Vessels:? Aorta and inferior vena cava are normal in size.? ? PELVIS: Pelvic Organs:? There is heterogeneous moderate enlargement of the prostate..? ? Bladder:? Unremarkable.? ? Pelvic Nodes: No enlarged lymph nodes.? Miscellaneous: No inguinal hernias are seen. ? ? ? Bones:? Visualized osseous structures demonstrate no suspicious focal lesions. ? IMPRESSION:? ? 1.? Moderate colonic stool distention may reflect constipation.? No evidence of bowel obstruction. ? 2. No evidence of appendicitis. ? 3. Colonic diverticulosis without acute diverticulitis. ? ? Dictated by: Javi Sellers M.D. on 11/02/2021 at 23:12 ? ? Approved by: Javi Sellers M.D. on 11/02/2021 at 23:18 ? MDM Narrative Medical decision making narrative: Multiple etiologies for patient's symptoms considered include, but not limited to: [Bowel obstruction versus kidney stone versus diverticulitis versus other Patient's symptoms improved over duration of stay with above-stated therapies. History, physical exam, labs, imaging, and response to therapies have been reassuring. Findings and discharge diagnosis discussed with patient/family followed by verbalization of understanding Return precautions discussed with patient/family whom verbalize understanding. Pain has been well controlled and patient is tolerating oral hydration. Discharge Plan Departure Patient Disposition: Home Clinical Impression: COVID Instructions: DI for COVID-19 (Suspected or Confirmed ) Activity Restrictions/Additional Instructions: *You have been diagnosed with [ COVID-19] *What to do: A prescription for Paxlovid has been sent to [facility] for you, please take it as directed. Please withhold your cholesterol medication for the next 10 days ?* per recommendations from the CDC and the [facility] Department of Health ?* stay home except to get medical care. ?Restrict activities outside your home, except for getting medical care. ?Do not go to work, school, or public areas. ?Avoid using public transportation, ride sharing, or taxis. ?* separate yourself from other people in your home. ?* call ahead before visiting your doctor ?* Wear a facemask ?* Cover your coughs and sneezes ?* Clean your hands often ?* Avoid sharing household items ?* Clean all high-touch services every day ?* Monitor your symptoms and seek prompt medical attention if your illness is worsening, particularly with difficulty in breathing. You may discontinue your isolation when: ?1. You have been fever-free for at least 24 hours without the use of fever reducing medication, AND ?2. Your symptoms are getting better, AND ?3. At least 5 days have passed since symptoms first appeared ?4. If you have fever, continue to stay home until fever resolves Individuals with laboratory confirmed COVID-19 who have not had any symptoms may discontinue home isolation when at least 5 days have passed since the date of their first COVID-19 diagnostic test and have had no subsequent illness You should notifiy any friends and family that have been in close contact *If up to date on COVID Vaccines, then they do not need to quarantine unless symptoms develop. Get tested on day 5 (or sooner if symptoms develop). Take precautions and watch for symptoms until day 10 *If NOT up to date on COVID Vaccines, then CDC recommends quarantine for at least 5 full days. Wear a well fitted mask at home if you must be around others. If they ?develop symptoms they should get tested. If they remain asymptomatic they should get tested on day 5. They should take precautions and monitor for symptoms until day 10. Prescriptions: New Paxlovid (EUA) 150 mg x 2- 100 mg tablet See Rx Instructions .ROUTE .COMPLEX Qty: 30 0RF Rx Instructions: take TWO 150 mg tablets of nirmatrelvir with ONE 100 mg tablet of ritonavir twice daily for 5 days Patient creatinine 0.78mg/dL No Action ASPIRIN (Aspirin Low Dose) 81 mg PO Qty: 0 HYDROCHLOROTHIAZIDE (Hydrodiuril / Hctz) 0 PO * [place] DOSE/FREQUENCY Qty: 0 LISINOPRIL (Zestril / Prinivil) 0 PO *UK DOSE/FREQUENCY Qty: 0 lovastatin 10 MG tablet 10 mg Qty: 0 amoxicillin-pot clavulanate [Augmentin] 500 MG/125 MG tablet 500 mg PO Q12H Qty: 14 0RF Referrals: Lenard Nance MD [Primary Care Provider] - Visit Report Forms: Patient Portal/API
[2021-11-02 20:54] LABS: COVID19 -Nasal RAPID POSITIVE (Negative)
[2021-11-02 21:10] LABS: Add Manual Diff / Slide Review NO; Basophils Absolute Auto 0 /uL (0-100); Basophils Percent Auto 0.1 % (0-2); Eosinophils Absolute Auto 0 /uL (0-450); Hemoglobin 14.3 g/dL (13.5-17.5); Lymphocytes Absolute Auto 300 /uL (1100-4500); Lymphocytes Percent Auto 3.9 % (25-40); Mean Corpuscular HGB Conc 33.3 % (30-36); Mean Corpuscular Hemoglobin 29.6 PG (26-34); Mean Corpuscular Volume 88.8 fL (80-100); Monocytes Absolute Auto 1200 /uL (0-900); Monocytes Percent Auto 14.4 % (3-14); Neutrophils Absolute Auto 6700 /uL (1500-7000); Neutrophils Percent Auto 81.6 % (50-75); Platelet Count 187 X10^3/uL (150-400); Red Blood Cell Count 4.84 X10^6/uL (4.5-5.9); Red Cell Distribution Width 13.6 % (11.6-14.8); White Blood Cell Count 8.2 X10^3/uL (4.5-11.0)
[2021-11-02 21:13] LABS: INR 1.3 (0.9-1.3)
[2021-11-02 21:15] LABS: PTT Partial Thromboplastin Tim 29 SECONDS (26.4-36.2)
[2021-11-02 21:17] LABS: Alanine Aminotransferase 11 IU/L (<50); Albumin 4.4 g/dL (3.5-5.0); Albumin Globulin Ratio 1.3 (1.0-2.8); Alkaline Phosphatase 52 U/L (38-126); Aspartate Aminotransferase 23 IU/L (17-59); BUN Creatinine Ratio 20.5 (6-22); Bilirubin Total 4.1 mg/dL (0.2-1.3); Blood Urea Nitrogen 16 mg/dL (9-20); Calcium 9.5 mg/dL (8.4-10.2); Carbon Dioxide 26 mmol/L (22-32); Chloride 102 mmol/L (98-107); Estimated Glomerular Filt Rate > 60 mL/min (>60); Globulin 3.3 g/dL (1.7-4.1); Glucose 128 mg/dL (80-110); HEMOLYSIS < 15 (0-50); Lipase 55 U/L (23-300); Potassium 3.8 mmol/L (3.4-5.1); Sodium 138 mmol/L (137-145); Total Protein 7.7 g/dL (6.3-8.2)
--- NOTE | 2021-11-02 21:48 | DI.CT.S_ITS ---
PROCEDURE: CT ABDOMEN PELVIS W CON INDICATIONS: severe abdominal pain, No BM, air fluid on xray TECHNIQUE: After the administration of IV contrast, axial sections were acquired from the lung bases to the pubic symphysis. Coronal and sagittal reformats were performed. For radiation dose reduction, the following was used: automated exposure control, adjustment of mA and/or kV according to patient size. COMPARISON: [facility], CT, CHEST/ABD/PEL WITH CONTRAST, 10/29/2014, 8:37. [facility], CR, XR ACUTE ABDOMEN SERIES, 11/02/2021, 20:49. FINDINGS: Image quality: Excellent. Lung bases: There is mild dependent atelectasis bilaterally. Heart: Heart is normal in size. There is a small hiatal hernia. ABDOMEN: Liver: No mass lesion. Gallbladder: Surgically absent Biliary ducts: No biliary ductal dilatation. Pancreas: Unremarkable. Spleen: Normal in size. Adrenal Glands: There is thickening of the left adrenal gland. Kidneys and Ureters: No hydronephrosis. Small bilateral renal cysts are redemonstrated. These include a small slightly hyperdense cyst extending posteromedially from the right kidney measuring 0.9 cm which appears decreased in size from the prior study. Stomach and Bowel: Stomach, small bowel loops, and colon are normal in caliber and wall thickness. The appendix is within normal limits. There is colonic diverticulosis without acute diverticulitis. A moderate amount of colonic stool may reflect constipation. Peritoneum: No abnormal intraperitoneal fluid. No free air. Ventral Wall: No hernia. Abdominal Nodes: No retroperitoneal or mesenteric adenopathy by size criteria. Vessels: Aorta and inferior vena cava are normal in size. PELVIS: Pelvic Organs: There is heterogeneous moderate enlargement of the prostate.. Bladder: Unremarkable. Pelvic Nodes: No enlarged lymph nodes. Miscellaneous: No inguinal hernias are seen. Bones: Visualized osseous structures demonstrate no suspicious focal lesions. IMPRESSION: 1. Moderate colonic stool distention may reflect constipation. No evidence of bowel obstruction. 2. No evidence of appendicitis. 3. Colonic diverticulosis without acute diverticulitis. Dictated by: Javi Sellers M.D. on 11/02/2021 at 23:12 Approved by: Javi Sellers M.D. on 11/02/2021 at 23:18
[2021-11-02] MEDS: SODIUM CHLORIDE 0.9% 500 ML 1000 ML IV (22:01)
[2021-11-03] VITALS: BP 178/97; PULSE 106; RESP 22; O2SAT 96
[2021-11-03] MEDS: SODIUM CHLORIDE 0.9% 500 ML 1000 ML IV (00:12)
[2021-11-03 00:30] VITALS: PULSE 65; O2SAT 96
[2021-11-03 00:31] VITALS: BP 165/92; PULSE 65; O2SAT 96
== END 2021-11-03 01:13 | disposition home or self-care (01) ==
PROVIDERS: Emergency Provider Emergency Medicine; Family Provider Family Medicine; PCP Family Medicine
DX: U07.1 COVID-19 (principal); G20 Parkinson's disease; R10.9 Unspecified abdominal pain
CPT/HCPCS: 36415; 74022; 74177; 80053; 81001; 83690; 85025; 85610; 85730; 87635; 93005; 93010; 96360; 96361; 99284; C9803; Q9967

== ENCOUNTER 2022-06-19 13:39 | Emergency (ER) | payer OTHER, SELFPAY ==
[2022-06-19] VITALS (12 sets, daily range): BP systolic 133–156; BP diastolic 81–99; PULSE 58–69; RESP 14–20; TEMP 36.6; O2SAT 96–100; BMI 25.7
--- NOTE | 2022-06-19 14:04 | DI.RAD.S_ITS ---
PROCEDURE: XR CHEST 1V INDICATIONS: chest pain TECHNIQUE: One view of the chest was acquired. COMPARISON: None. FINDINGS: Surgical changes and devices: None. Lungs and pleura: 3 millimeter nodular density is seen in right upper lung field. No focal infiltrate. No pleural effusions or pneumothorax. Mediastinum: Aortic arch calcification is seen. Heart size is enlarged. Bones and chest wall: No suspicious bony lesions. Overlying soft tissues appear unremarkable. IMPRESSION: No acute cardiopulmonary pathology. Possible 3 millimeter right upper lobe nodule as above. Follow-up CT chest as an outpatient is recommended. Dictated by: Kalpesh Carmona M.D. on 06/19/2022 at 15:18 Approved by: Kalpesh Carmona M.D. on 06/19/2022 at 15:19
--- NOTE | 2022-06-19 14:21 | DI.CT.S_ITS ---
PROCEDURE: CT HEAD/BRAIN WO CON INDICATIONS: confusion TECHNIQUE: Noncontrast 4.5 mm thick angled axial sections acquired from the foramen magnum to the vertex, with coronal and sagittal reformats. For radiation dose reduction, the following was used: automated exposure control, adjustment of mA and/or kV according to patient size. COMPARISON: None. FINDINGS: Image quality: Excellent. CSF spaces: Basal cisterns are patent. No extra-axial fluid collections. Ventricles are normal in size and shape. Brain: No midline shift. No intracranial hemorrhage. Left falx extra-axial mass measuring approximately 0.9 cm, (09/16). No area of hypodensity in a large vascular distribution to suggest acute infarction. Periventricular hypodensity consistent with chronic microvascular ischemic change. Age-related parenchymal loss. Skull and face: Calvarium and visualized facial bones are intact, without suspicious lesions. Sinuses: Visualized sinuses and mastoids are clear. IMPRESSION: No acute intracranial hemorrhage. No infarct identified. Chronic microvascular ischemic disease. Small mass at the left falx measuring 0.9 cm. This could represent a small hemangioma. This could be more definitively characterized with MRI with IV contrast. Dictated by: Piotr Galdamez M.D. on 06/19/2022 at 14:37 Approved by: Piotr Galdamez M.D. on 06/19/2022 at 14:40
[2022-06-19 14:26] LABS: Add Manual Diff / Slide Review NO; Basophils Absolute Auto 0 /uL (0-100); Basophils Percent Auto 0.2 % (0-2); Eosinophils Absolute Auto 0 /uL (0-450); Eosinophils Percent Auto 0.3 % (2-4); Hemoglobin 14.6 g/dL (13.5-17.5); Lymphocytes Absolute Auto 900 /uL (1100-4500); Mean Corpuscular HGB Conc 34.1 % (30-36); Mean Corpuscular Hemoglobin 30.2 PG (26-34); Mean Corpuscular Volume 88.7 fL (80-100); Monocytes Absolute Auto 600 /uL (0-900); Monocytes Percent Auto 9.9 % (3-14); Neutrophils Absolute Auto 4400 /uL (1500-7000); Neutrophils Percent Auto 73.6 % (50-75); Platelet Count 265 X10^3/uL (150-400); Red Blood Cell Count 4.85 X10^6/uL (4.5-5.9); White Blood Cell Count 5.9 X10^3/uL (4.5-11.0)
[2022-06-19 14:35] LABS: INR 1.2 (0.9-1.3); Prothrombin Time 13.6 SECONDS (10.1-12.7)
[2022-06-19 14:38] LABS: PTT Partial Thromboplastin Tim 27 SECONDS (26-36)
[2022-06-19 14:46] LABS: Lactate (Lactic Acid) 1.6 mmol/L (0.7-2.1)
[2022-06-19 14:46] LABS: Alanine Aminotransferase 18 IU/L (<50); Albumin 4.1 g/dL (3.5-5.0); Albumin Globulin Ratio 1.4 (1.0-2.8); Alkaline Phosphatase 49 U/L (38-126); Aspartate Aminotransferase 34 IU/L (17-59); BUN Creatinine Ratio 20.5 (6-22); Bilirubin Total 3.1 mg/dL (0.2-1.3); Blood Urea Nitrogen 16 mg/dL (9-20); Carbon Dioxide 28 mmol/L (22-32); Chloride 101 mmol/L (98-107); Creatine Kinase 43 U/L (55-170); Estimated Glomerular Filt Rate > 60 mL/min (>60); Glucose 103 mg/dL (80-110); HEMOLYSIS 35 (0-50); Lipase 79 U/L (23-300); Magnesium 1.8 mg/dL (1.6-2.3); Potassium 4.1 mmol/L (3.4-5.1); Sodium 138 mmol/L (137-145); Total Protein 7.1 g/dL (6.3-8.2)
[2022-06-19 14:57] LABS: Troponin I < 0.012 ng/mL (0.01-0.034)
--- NOTE | 2022-06-19 15:01 | PC.NURSE ---
Per , pt went to bed with no facial droop. Upon waking at 8am pt reports Left sided facial droop and increased confusion that improved by 1pm. Pt reports he has constipation with last BM yesterday.
[2022-06-19 15:03] LABS: Procalcitonin < 0.03 ng/mL (<0.5)
--- NOTE | 2022-06-19 15:06 | ED_ITS ---
HPI - Neuro Symptoms/Deficit General Chief Complaint: Neuro Symptoms/Deficit Stated Complaint: sent by /zheng Time Seen by Provider: 06/19/22 14:21 Source: patient Mode of arrival: Ambulatory History of Present Illness HPI Narrative: Patient is a 76-year-old male history of Parkinson's and dementia presenting today with worsening confusion. He is followed at [facility] neurology. Today was the 1st time he did not recognize his . He was in his normal state of health yesterday and earlier today. He seems back to his baseline mental status now. He is not had any fever or chills. He denies any pain. No chest pain palpitations abdominal pain nausea or vomiting. He is able to answer questions however gives more history. He was sent here by PCP for further evaluation and workup. He is no numbness tingling or weakness he has no increasing falls. Overall feels okay On Anticoagulants: No Related Data Home Medications Medication Instructions Recorded Confirmed lovastatin 10 mg tablet 10 mg ##0 12/11/15 Allergies Allergy/AdvReac Type Severity Reaction Status Date / Time No Known Drug Allergies Allergy Verified 06/19/22 14:01 Review of Systems Review of Systems ROS Unobtainable: All systems reviewed & are unremarkable except as noted in HPI and below Hematologic/Lymphatic On Anticoagulants: No Patient History Social History Smoking Status: Former smoker Smoking Status: Former smoker alcohol intake frequency: 0-2 drinks per day Substance Use Type: does not use Exam Initial Vital Signs Initial Vital Signs: Vital Signs Temperature 97.8 F 06/19/22 13:57 Pulse Rate 69 06/19/22 13:57 Respiratory Rate 14 06/19/22 13:57 Blood Pressure 143/81 H 06/19/22 13:57 Pulse Oximetry 99 06/19/22 13:57 Oxygen Delivery Method 06/19/22 13:57 GENERAL: Alert pleasant well-appearing 76-year-old male HEENT: Head atraumatic,EOMI, pupils reactive, face symmetric, moist mucous membranes CARDIOVASCULAR: Regular rate and rhythm without murmurs, rubs or gallops. RESPIRATORY: Breath sounds equal bilaterally, no wheezes rales or rhonchi. ABDOMEN: Soft, nontender. Normoactive bowel sounds all 4 quadrants. No guarding or rebound. EXTREMITIES: Normal range of motion, no clubbing or edema. Neurovascularly intact NEUROLOGICAL: Alert and oriented x1.Normal gait and speech. Cranial nerves II through XII grossly intact. Good [id number]-[id number], good [id number], strength equal bilaterally, no dysarthria or aphasia, sensation in tact to soft touch bilaterally, no visual changes, no facial droop parkinsonian tremor noted SKIN: Warm, dry, no laceration, no petechiae, no rashes or lesions. Scores NIH Stroke Scale Level of Conciousness: Alert, keenly responsive Ask month/age: Answers both questions correctly. Open/close eyes, close hand: Performs both tasks correctly Best gaze horizontal: Normal Visual mitchell: No visual loss Facial palsy: Normal symetrical movement Left arm drift: No drift for full 10 sec Right arm drift: No drift for full 10 sec Left leg drift: No drift for full 5 sec Right leg drift: No drift for full 5 sec Limb ataxia: Absent Sensory on face/arms/legs: Normal, no sensory loss Best language: No aphasia, normal Dysarthria: Normal Extinction or inattention: No abnormality Total NIH Stroke scale score: 0 Course Orders Ordered: ED Orders 06/19/22 14:04 XR chest 1V Stat 06/19/22 14:15 Complete Blood Count AUTO DIFF Stat Comprehensive Metabolic Panel Stat Lipase Stat Magnesium Stat Partial Thromboplastin Time Stat Prothrombin Time INR Stat Troponin & CK Cardiac Panel Stat 06/19/22 14:21 CT head/brain wo con Stat Lactate (Lactic Acid) Stat Procalcitonin Stat 06/19/22 15:10 EKG-12 Lead Stat Vital Signs Vital signs: Vital Signs - 8 hr 06/19/22 13:57 06/19/22 14:57 06/19/22 14:59 Temperature 97.8 F Pulse Rate 69 66 Respiratory Rate 14 Blood Pressure 143/81 H 143/85 H Pulse Oximetry 99 Oxygen Delivery Method Room Air 06/19/22 14:59 06/19/22 15:00 06/19/22 16:23 Temperature Pulse Rate 63 66 Respiratory Rate Blood Pressure 141/86 H Pulse Oximetry 100 99 Oxygen Delivery Method 06/19/22 15:30 06/19/22 16:00 06/19/22 16:23 Temperature Pulse Rate 62 62 Respiratory Rate 20 Blood Pressure 141/86 H Pulse Oximetry 98 97 Oxygen Delivery Method 06/19/22 16:23 06/19/22 16:30 06/19/22 16:44 Temperature Pulse Rate 61 60 Respiratory Rate Blood Pressure 156/99 H Pulse Oximetry 97 97 Oxygen Delivery Method 06/19/22 16:44 06/19/22 17:00 06/19/22 17:01 Temperature Pulse Rate 66 58 L Respiratory Rate Blood Pressure 153/90 H Pulse Oximetry 98 97 Oxygen Delivery Method 06/19/22 17:01 06/19/22 17:30 06/19/22 17:30 Temperature Pulse Rate 60 60 Respiratory Rate 18 Blood Pressure 133/82 Pulse Oximetry 97 96 Oxygen Delivery Method MDM - Neuro Symptoms/Deficit Lab Data 06/19/22 14:15 06/19/22 14:15 Labs: Lab Results 06/19/22 06/19/22 06/19/22 Range/Units 14:15 14:15 14:15 WBC 5.9 (4.5-11.0) X10^3/uL RBC 4.85 (4.5-5.9) X10^6/uL Hgb 14.6 (13.5-17.5) g/dL Hct 43.0 (41-53) % MCV 88.7 (80-100) fL MCH 30.2 (26-34) PG MCHC 34.1 (30-36) % RDW 14.0 (11.6-14.8) % Plt Count 265 (150-400) X10^3/uL Neut % (Auto) 73.6 (50-75) % Lymph % (Auto) 16.0 L (25-40) % [place] % (Auto) 9.9 (3-14) % Eos % (Auto) 0.3 L (2-4) % Baso % (Auto) 0.2 (0-2) % Neut # (Auto) 4400 (7698-7211) /uL Lymph # (Auto) 900 L (0963-3213) /uL [place]asper # (Auto) 600 (0-900) /uL Eos # (Auto) 0 (0-450) /uL Baso # (Auto) 0 (0-100) /uL PT 13.6 H (10.1-12.7) SECONDS INR 1.2 (0.9-1.3) APTT 27 (26-36) SECONDS Sodium 138 (137-145) mmol/L Potassium 4.1 (3.4-5.1) mmol/L Chloride 101 (98-107) mmol/L Carbon Dioxide 28 (22-32) mmol/L BUN 16 (9-20) mg/dL Creatinine 0.78 (0.66-1.25) mg/dL Estimated GFR > 60 (>60) mL/min BUN/Creatinine Ratio 20.5 (6-22) Glucose 103 (80-110) mg/dL Lactate (0.7-2.1) mmol/L Calcium 10.0 (8.4-10.2) mg/dL Magnesium 1.8 (1.6-2.3) mg/dL Total Bilirubin 3.1 H (0.2-1.3) mg/dL AST 34 (17-59) IU/L ALT 18 (<50) IU/L Alkaline Phosphatase 49 (38-126) U/L Total Creatine Kinase 43 L (55-170) U/L CK-MB (CK-2) TNP CK-MB (CK-2) Rel Index TNP Troponin I < 0.012 (0.01-0.034) ng/mL Total Protein 7.1 (6.3-8.2) g/dL Albumin 4.1 (3.5-5.0) g/dL Globulin 3.0 (1.7-4.1) g/dL Albumin/Globulin Ratio 1.4 (1.0-2.8) Lipase 79 (23-300) U/L Procalcitonin (<0.5) ng/mL 06/19/22 06/19/22 Range/Units 14:21 14:21 WBC (4.5-11.0) X10^3/uL RBC (4.5-5.9) X10^6/uL Hgb (13.5-17.5) g/dL Hct (41-53) % MCV (80-100) fL MCH (26-34) PG MCHC (30-36) % RDW (11.6-14.8) % Plt Count (150-400) X10^3/uL Neut % (Auto) (50-75) % Lymph % (Auto) (25-40) % [place]asper % (Auto) (3-14) % Eos % (Auto) (2-4) % Baso % (Auto) (0-2) % Neut # (Auto) (2646-5183) /uL Lymph # (Auto) (8574-9667) /uL Jasper # (Auto) (0-900) /uL Eos # (Auto) (0-450) /uL Baso # (Auto) (0-100) /uL PT (10.1-12.7) SECONDS INR (0.9-1.3) APTT (26-36) SECONDS Sodium (137-145) mmol/L Potassium (3.4-5.1) mmol/L Chloride (98-107) mmol/L Carbon Dioxide (22-32) mmol/L BUN (9-20) mg/dL Creatinine (0.66-1.25) mg/dL Estimated GFR (>60) mL/min BUN/Creatinine Ratio (6-22) Glucose (80-110) mg/dL Lactate 1.6 (0.7-2.1) mmol/L Calcium (8.4-10.2) mg/dL Magnesium (1.6-2.3) mg/dL Total Bilirubin (0.2-1.3) mg/dL AST (17-59) IU/L ALT (<50) IU/L Alkaline Phosphatase (38-126) U/L Total Creatine Kinase (55-170) U/L CK-MB (CK-2) CK-MB (CK-2) Rel Index Troponin I (0.01-0.034) ng/mL Total Protein (6.3-8.2) g/dL Albumin (3.5-5.0) g/dL Globulin (1.7-4.1) g/dL Albumin/Globulin Ratio (1.0-2.8) Lipase (23-300) U/L Procalcitonin < 0.03 (<0.5) ng/mL Urine Dip Bedside Urine Glucose Negative Bedside Urine Bilirubin - Negative Bedside Urine Ketone - Negative Urine Specific [place] 1.025 Bedside Urine Occult Blood - Negative Bedside Urine pH 6.0 Bedside Urine Protein - Negative Bedside Urine Urobilinogen - Negative Bedside Urine Nitrite - Negative Bedside Urine Leukocytes - Negative Esterase Imaging Data CT scan - head: Radiologist's Impression: CT Scan Report Signed Patient: Kayden Valero MR#: [id number] : 1945 Acct:[id number] Age/Sex: 76 / M Date of Service: 06/19/22 Loc: ED Accession Number: [id number] ?? Procedure: CT head/brain wo con Ordering Provider: Meli Steel D.O. PROCEDURE:? CT HEAD/BRAIN WO CON ? INDICATIONS:? confusion ? TECHNIQUE:? Noncontrast 4.5 mm thick angled axial sections acquired from the foramen magnum to the vertex, with coronal and sagittal reformats.? For radiation dose reduction, the following was used:? automated exposure control, adjustment of mA and/or kV according to patient size.? ? COMPARISON:? None. ? FINDINGS:? Image quality:? Excellent.? ? CSF spaces:? Basal cisterns are patent.? No extra-axial fluid collections.? Ventricles are normal in size and shape.? ? Brain:? No midline shift.? No intracranial hemorrhage.? Left falx extra-axial mass measuring approximately 0.9 cm, (09/16).? No area of hypodensity in a large vascular distribution to suggest acute infarction. Periventricular hypodensity consistent with chronic microvascular ischemic change. Age-related parenchymal loss. ? Skull and face:? Calvarium and visualized facial bones are intact, without suspicious lesions.? ? Sinuses:? Visualized sinuses and mastoids are clear.? ? IMPRESSION:? No acute intracranial hemorrhage.? No infarct identified. Chronic microvascular ischemic disease. ? Small mass at the left falx measuring 0.9 cm.? This could represent a small hemangioma.? This could be more definitively characterized with MRI with IV contrast.? ? ? Dictated by: Piotr Galdamez M.D. on 06/19/2022 at 14:37 ? ? Chest x-ray: Radiologist's Impression: ISAAK [id number] XRay Report Signed Patient: Kayden Valero MR#: [id number] : 1945 Acct:[id number] Age/Sex: 76 / M Date of Service: 06/19/22 Loc: ED Accession Number: [id number] ?? Procedure: XR chest 1V Ordering Provider: Meli Steel D.O. PROCEDURE:? XR CHEST 1V ? INDICATIONS:? chest pain ? TECHNIQUE:? One view of the chest was acquired.? ? COMPARISON:? None. ? FINDINGS:? ? Surgical changes and devices:? None.? ? Lungs and pleura:? 3 millimeter nodular density is seen in right upper lung field.? No focal infiltrate.? No pleural effusions or pneumothorax.? ? Mediastinum:? Aortic arch calcification is seen.? Heart size is enlarged. ? Bones and chest wall:? No suspicious bony lesions.? Overlying soft tissues appear unremarkable.? ? IMPRESSION:? No acute cardiopulmonary pathology.? Possible 3 millimeter right upper lobe nodule as above.? Follow-up CT chest as an outpatient is recommended. ? ? Dictated by: Kalpesh Carmona M.D. on 06/19/2022 at 15:18 ? ? Approved by: Kalpesh Carmona M.D. on 06/19/2022 at 15:19 ? ECG Data Interpretation: Normal sinus rhythm rate 63 OK interval 212 QRS [address] changes no T- wave inversions MDM Narrative Medical decision making narrative: Patient is a pleasant 76-year-old male history of dementia and Parkinson's presenting today with acute onset of confusion but has now returned to his baseline mental status. He has no focal deficits. reports that he is back to baseline. He is no sign of infection he does not have any infectious symptoms. Labs have been reviewed no leukocytosis, anemia electrolytes are within normal limits negative troponin. Head CT does show an incidental 0.9 mm possible meningioma. Images were pushed to [facility] I discussed with neurosurgery who reports that this is likely incidental if symptoms worsen or persist make it an outpatient MRI with PCP but not necessarily indicated emergently today. Symptoms today are likely progression of disease unfortunately. Patient and updated on symptoms they will follow-up with her PCP Differential diagnosis considered, CVA, infection, intracranial hemorrhage, drug overdose Discharge Plan Departure Patient Disposition: Home Clinical Impression: Dementia, Meningioma Instructions: Dementia Activity Restrictions/Additional Instructions: *You have been diagnosed with dementia, meningioma *What to do: At this time there is no sign of infection. You had meningioma that was found incidentally in your brain this is not likely causing symptoms today. However you may require an outpatient MRI please discuss this care PCP *Continue to take medications as directed *Follow up with your primary care provider in 2-3 days or call [phone] *Return to ER if you should have increasing confusion weakness numbness tingling or any new, worsening or concerning symptoms Prescriptions: No Action lovastatin 10 MG tablet 10 mg Qty: 0 Referrals: Lenard Nance MD [Primary Care Provider] - Stand Alone Forms: Patient Portal/API
== END 2022-06-19 17:50 | disposition home or self-care (01) ==
PROVIDERS: Emergency Provider Emergency Medicine; Family Provider Family Medicine; PCP Family Medicine
DX: G20 Parkinson's disease (principal); F02.80 Dementia in other diseases classified elsewhere, unspecified severity, without behavioral disturbance, psychotic disturbance, mood disturbance, and anxiety; D32.9 Benign neoplasm of meninges, unspecified; R29.700 NIHSS score 0; R07.9 Chest pain, unspecified
CPT/HCPCS: 36415; 70450; 71045; 80053; 81003; 82550; 83605; 83690; 83735; 84145; 84484; 85025; 85610; 85730; 93005; 93010; 99283; 99284

== ENCOUNTER 2022-09-12 21:07 | Emergency (ER) | payer OTHER, SELFPAY ==
[2022-09-12 21:23] VITALS: BP 184/107; PULSE 86; RESP 15; TEMP 36.7; O2SAT 97
[2022-09-12 21:25] VITALS: PULSE 65; O2SAT 97
[2022-09-12 21:26] VITALS: BP 184/107; PULSE 87; O2SAT 97
[2022-09-12 21:30] VITALS: BP 151/97; PULSE 84; O2SAT 96
--- NOTE | 2022-09-12 22:42 | ED.NEUROSD ---
HPI - Neuro Symptoms/Deficit General Chief Complaint: Neuro Symptoms/Deficit Stated Complaint: Confusion Time Seen by Provider: 09/12/22 22:41 Source: patient Mode of arrival: Ambulatory History of Present Illness HPI Narrative: Patient is 76 year male history of dementia and Parkinson's presents today with confusion. reports that they were out at grandson's birthday he was sitting he did have 1 small alcoholic beverage which is not uncommon. Nothing more. When I got home he was slightly more confused and agitated than normal but reports she has noted waxing and waning of confusion and behavior. She is requesting that she have some help home. It is getting to a point that the just does not know what to do. Now that he is here he is doing better and both of them are requesting to go. He takes Seroquel at night to help which does seem to help. There has not been any fever cough painful frequent urination abdominal pain nausea vomiting diarrhea chest pain or any other symptoms. Related Data Home Medications Medication Instructions Recorded Confirmed lovastatin 10 mg tablet 10 mg ##0 12/11/15 Allergies Allergy/AdvReac Type Severity Reaction Status Date / Time No Known Drug Allergies Allergy Verified 09/12/22 21:28 Patient History Social History Smoking Status: Former smoker Smoking Status: Former smoker alcohol intake frequency: 0-2 drinks per day Substance Use Type: does not use Exam Initial Vital Signs Initial Vital Signs: Vital Signs Temperature 98.0 F 09/12/22 21:23 Pulse Rate 86 09/12/22 21:23 Respiratory Rate 15 09/12/22 21:23 Blood Pressure 184/107 H 09/12/22 21:23 Pulse Oximetry 97 09/12/22 21:23 Oxygen Delivery Method Room Air 09/12/22 21:23 GENERAL: Alert pleasant 76-year-old male mildly confused HEENT: Head atraumatic,EOMI, pupils reactive, face symmetric, moist mucous membranes CARDIOVASCULAR: Regular rate and rhythm without murmurs, rubs or gallops. RESPIRATORY: Breath sounds equal bilaterally, no wheezes rales or rhonchi. EXTREMITIES: Normal range of motion, no clubbing or edema. Neurovascularly intact NEUROLOGICAL: Parkinsonian tremor moving all extremities SKIN: Warm, dry, no laceration, no petechiae, no rashes or lesions. Course Vital Signs Vital signs: Vital Signs - 8 hr 09/12/22 23:06 Pulse Rate 69 Respiratory Rate 18 Blood Pressure 158/89 H Pulse Oximetry 97 Oxygen Delivery Method Room Air MDM - Neuro Symptoms/Deficit MDM Narrative Medical decision making narrative: Patient 76-year-old male history of dementia and Parkinson's presenting today with increased agitation per . Agitation has calm down at this point. Requesting to go I did offer blood work, or at least a urinalysis at this time neither 1 feel like he has an infection this seems to happen to him regularly today was just a little bit more but now he seems back to his baseline. I encouraged him to talk with her primary care provider in regards to resources we talked about a caregiver a few times a week. Discharge Plan Departure Patient Disposition: Home Clinical Impression: Parkinsons Instructions: Dementia, DI for Parkinson Disease Activity Restrictions/Additional Instructions: *You have been diagnosed with Parkinson's, dementia *What to do: At this time I do recommend talking to Dr. Nance's office for help in getting home health care. You may need a caregiver couple days a week as well. If symptoms are agitation continues worsen may need workup for infection *Continue to take medications as directed *Follow up with your primary care provider in 2-3 days or call [phone] *Return to ER if you should have increasing confusion fever weekend or any new, worsening or concerning symptoms Prescriptions: No Action lovastatin 10 MG tablet 10 mg Qty: 0 Referrals: Lenard Nance MD [Primary Care Provider] - Stand Alone Forms: Patient Portal/API
[2022-09-12 23:06] VITALS: BP 158/89; PULSE 69; RESP 18; O2SAT 97
== END 2022-09-12 23:00 | disposition home or self-care (01) ==
PROVIDERS: Emergency Provider Emergency Medicine; Family Provider Family Medicine; PCP Family Medicine
DX: G20 Parkinson's disease (principal)
CPT/HCPCS: 99281

== ENCOUNTER 2023-08-15 20:38 | Emergency (ER) | payer OTHER, SELFPAY ==
[2023-08-15] VITALS (8 sets, daily range): BP systolic 138–187; BP diastolic 83–105; PULSE 67–82; RESP 15–18; TEMP 36.8; O2SAT 97–100; BMI 26.4
[2023-08-15 21:44] LABS: Add Manual Diff / Slide Review NO; Basophils Absolute Auto 0 /uL (0-100); Basophils Percent Auto 0.5 % (0-2); Eosinophils Absolute Auto 0 /uL (0-450); Eosinophils Percent Auto 0.2 % (2-4); Hematocrit 42.6 % (41-53); Hemoglobin 14.4 g/dL (13.5-17.5); Lymphocytes Absolute Auto 1200 /uL (1100-4500); Lymphocytes Percent Auto 17.7 % (25-40); Mean Corpuscular HGB Conc 33.8 % (30-36); Mean Corpuscular Hemoglobin 29.8 PG (26-34); Mean Corpuscular Volume 88.1 fL (80-100); Monocytes Absolute Auto 800 /uL (0-900); Monocytes Percent Auto 12.2 % (3-14); Neutrophils Absolute Auto 4600 /uL (1500-7000); Neutrophils Percent Auto 69.4 % (50-75); Platelet Count 282 X10^3/uL (150-400); Red Blood Cell Count 4.83 X10^6/uL (4.5-5.9); Red Cell Distribution Width 13.5 % (11.6-14.8); White Blood Cell Count 6.6 X10^3/uL (4.5-11.0)
--- NOTE | 2023-08-15 21:52 | PC.NURSE ---
Pt has history of Parkinson's with Lewy body dementia. reports pt up at 0200 and has had intermittent slurring of speech and is visually hallucinating. Pt reports seeing there is 8 people in room. Pt talks as though a man is standing at bedside. There is no man in the room. is concerned for potential stroke. Provider made aware of patient presentation. Call light within reach and encouraged and patient to use for any needs.
[2023-08-15 21:56] LABS: Alanine Aminotransferase 8 IU/L (<50); Albumin 4.2 g/dL (3.5-5.0); Albumin Globulin Ratio 1.4 (1.0-2.8); Alkaline Phosphatase 60 U/L (38-126); Aspartate Aminotransferase 25 IU/L (17-59); BUN Creatinine Ratio 19.1 (6-22); Bilirubin Total 1.8 mg/dL (0.2-1.3); Blood Urea Nitrogen 17 mg/dL (9-20); Calcium 10.2 mg/dL (8.4-10.2); Carbon Dioxide 30 mmol/L (22-32); Chloride 104 mmol/L (98-107); Estimated Glomerular Filt Rate > 60 mL/min (>60); Globulin 3.1 g/dL (1.7-4.1); Glucose 95 mg/dL (80-110); HEMOLYSIS 28 (0-50); Potassium 4.1 mmol/L (3.4-5.1); Sodium 138 mmol/L (137-145); Total Protein 7.3 g/dL (6.3-8.2)
--- NOTE | 2023-08-15 22:07 | DI.CT.S_ITS ---
PROCEDURE: CT HEAD/BRAIN WO CON INDICATIONS: AMS/HX PARKINSONS/WORSENING SLURRED SPEECH TECHNIQUE: Noncontrast 4.5 mm thick angled axial sections acquired from the foramen magnum to the vertex, with coronal and sagittal reformats. For radiation dose reduction, the following was used: automated exposure control, adjustment of mA and/or kV according to patient size. COMPARISON: [facility], CT, CT HEAD/BRAIN WO CON, 06/19/2022, 14:23. FINDINGS: Image quality: Diagnostic. CSF spaces: Basal cisterns are patent. No extra-axial fluid collections. The ventricles are symmetric in size and shape. Brain: Left parafalcine extra-axial mass measuring 9 mm is similar to prior. No intracranial bleeds. There is cerebral volume loss for age, with resultant ventricular and sulcal prominence. There are periventricular and deep white matter chronic small vessel ischemic changes. There is intracranial internal carotid artery atherosclerosis. Skull and face: Calvarium and visualized facial bones appear intact, without suspicious lesions. Sinuses: Visualized sinuses and mastoids are clear. IMPRESSION: No acute intracranial pathology. Stable left falx extra-axial mass measuring 9 mm, favored to represent a small meningioma. Dictated by: Sarath Naqvi M.D. on 08/15/2023 at 22:50 Approved by: Sarath Naqvi M.D. on 08/15/2023 at 22:51
--- NOTE | 2023-08-15 22:10 | ED_ITS ---
HPI - Altered Mental Status General Chief Complaint: Altered Mental Status Stated Complaint: has parkinsons/cannot close eyes or rest Time Seen by Provider: 08/15/23 21:22 Source: patient and family Mode of arrival: Ambulatory History of Present Illness HPI narrative: 77yoM with PMH advanced parkinson's dementia presents from home by private vehicle for agitation. Spouse at bedside states that patient usually takes 50- 65mg seroquel nightly, which helps him sleep, however last night the patient woke up at 2:00 a.m. and has been restless and agitated since. states that patient has somewhat slurred speech at baseline, but it was worse today than usual. Denies accident or injury Related Data Home Medications Medication Instructions Recorded Confirmed lovastatin 10 mg tablet 10 mg ##0 12/11/15 Allergies Allergy/AdvReac Type Severity Reaction Status Date / Time No Known Drug Allergies Allergy Verified 09/12/22 21:28 Review of Systems Review of Systems Narrative: per HPI Patient History Social History Smoking Status: Former smoker Smoking Status: Former smoker alcohol intake frequency: 0-2 drinks per day Substance Use Type: does not use Exam Initial Vital Signs Initial Vital Signs: Vital Signs Temperature 98.2 F 08/15/23 20:42 Pulse Rate 82 08/15/23 20:42 Respiratory Rate 16 08/15/23 20:42 Blood Pressure 167/105 H 08/15/23 20:42 Pulse Oximetry 100 08/15/23 20:42 Oxygen Delivery Method Room Air 08/15/23 20:42 Const: Awake, alert, appears chronically unwell Cardiac: regular rate, regular rhythm RESP: unlabored, clear bilaterally GI: Soft, nontender, nondistended Skin: Warm, Dry, intact, no rashes Neuro: AO x1, CN II-XII grossly intact, moves all extremities, mumbling speech Course Orders Ordered: ED Orders 08/15/23 21:35 CBC Auto Diff [Complete Blood Count AUTO DIFF] Stat CMP [Comprehensive Metabolic Panel] Stat 08/15/23 22:07 CT head/brain wo con Stat 08/15/23 22:08 Chest [XR chest 1V] Stat 08/15/23 23:20 UA Complete [Urinalysis and Microscopic] Stat 08/16/23 01:29 Consult to [employer] - [employer] Stat Discontinued Medications Quetiapine Fumarate (Quetiapine 100 Mg Tablet) 100 mg PO NOW ONE Stop: 08/15/23 23:54 Last Admin: 08/16/23 00:06 Dose: 100 mg Documented By: YESSICA Vital Signs Vital signs: Vital Signs - 8 hr 08/15/23 20:42 08/15/23 21:30 08/15/23 21:33 Temperature 98.2 F Pulse Rate 82 67 Respiratory Rate 16 Blood Pressure 167/105 H 161/94 H Pulse Oximetry 100 98 Oxygen Delivery Method Room Air 08/15/23 21:33 08/15/23 22:00 08/15/23 22:00 Temperature Pulse Rate 67 73 Respiratory Rate 15 Blood Pressure 144/83 H Pulse Oximetry 98 98 Oxygen Delivery Method 08/15/23 22:26 08/15/23 22:26 08/15/23 22:30 Temperature Pulse Rate 68 67 Respiratory Rate 16 16 Blood Pressure 148/86 H Pulse Oximetry 98 97 Oxygen Delivery Method Room Air 08/15/23 22:30 08/15/23 23:00 08/15/23 23:00 Temperature Pulse Rate 67 Respiratory Rate 18 Blood Pressure 138/87 187/98 H Pulse Oximetry 98 Oxygen Delivery Method 08/15/23 23:30 08/16/23 00:53 Temperature Pulse Rate 73 76 Respiratory Rate 16 Blood Pressure 185/84 H Pulse Oximetry 97 98 Oxygen Delivery Method Room Air MDM - Altered Mental Status Lab Data 08/15/23 21:35 08/15/23 21:35 Labs: Lab Results 08/15/23 08/15/23 Range/Units 21:35 23:20 WBC 6.6 (4.5-11.0) X10^3/uL RBC 4.83 (4.5-5.9) X10^6/uL Hgb 14.4 (13.5-17.5) g/dL Hct 42.6 (41-53) % MCV 88.1 (80-100) fL MCH 29.8 (26-34) PG MCHC 33.8 (30-36) % RDW 13.5 (11.6-14.8) % Plt Count 282 (150-400) X10^3/uL Neut % (Auto) 69.4 (50-75) % Lymph % (Auto) 17.7 L (25-40) % [place] % (Auto) 12.2 (3-14) % Eos % (Auto) 0.2 L (2-4) % Baso % (Auto) 0.5 (0-2) % Neut # (Auto) 4600 (0427-3165) /uL Lymph # (Auto) 1200 (8860-5888) /uL [place] # (Auto) 800 (0-900) /uL Eos # (Auto) 0 (0-450) /uL Baso # (Auto) 0 (0-100) /uL Sodium 138 (137-145) mmol/L Potassium 4.1 (3.4-5.1) mmol/L Chloride 104 (98-107) mmol/L Carbon Dioxide 30 (22-32) mmol/L BUN 17 (9-20) mg/dL Creatinine 0.89 (0.66-1.25) mg/dL Estimated GFR > 60 (>60) mL/min BUN/Creatinine Ratio 19.1 (6-22) Glucose 95 (80-110) mg/dL Calcium 10.2 (8.4-10.2) mg/dL Total Bilirubin 1.8 H (0.2-1.3) mg/dL AST 25 (17-59) IU/L ALT 8 (<50) IU/L Alkaline Phosphatase 60 (38-126) U/L Total Protein 7.3 (6.3-8.2) g/dL Albumin 4.2 (3.5-5.0) g/dL Globulin 3.1 (1.7-4.1) g/dL Albumin/Globulin Ratio 1.4 (1.0-2.8) Urine Color Yellow Urine Appearance Clear Urine pH 5.5 (4.5-8.0) Ur Specific [place] >=1.030 H (1.000-1.035) Urine Protein Negative (Negative) Urine Glucose (UA) Negative (Negative) g/dL Urine Ketones Trace H (NEGATIVE) Urine Occult Blood Trace-intact (Negative) Urine Nitrate Negative (Negative) Urine Bilirubin Negative (NEGATIVE) Urine Urobilinogen 0.2 (0.2) E.U./dL Ur Leukocyte Esterase Negative (NEGATIVE) Urine RBC 0-1/hpf (0-5/HPF) Urine WBC 0-1/hpf (0-5/HPF) Ur Squamous Epith Cells 0-1 /hpf (0-5/HPF) Ur Transition Epith Cell 0-1/hpf (0-5/HPF) Urine Bacteria None seen (None) Urine Mucus 1+ H (Negative) Ur Culture Indicated? Cult not indicated Vol Urine Centrifuged 10ml (spun) Imaging Data CT scan - head: Radiologist's Impression: PROCEDURE: CT HEAD/BRAIN WO CON INDICATIONS: AMS/HX PARKINSONS/WORSENING SLURRED SPEECH TECHNIQUE: Noncontrast 4.5 mm thick angled axial sections acquired from the foramen magnum to the vertex, with coronal and sagittal reformats. For radiation dose reduction, the following was used: automated exposure control, adjustment of mA and/or kV according to patient size. COMPARISON: [facility], CT, CT HEAD/BRAIN WO CON, 06/19/2022, 14:23. FINDINGS: Image quality: Diagnostic. CSF spaces: Basal cisterns are patent. No extra-axial fluid collections. The ventricles are symmetric in size and shape. Brain: Left parafalcine extra-axial mass measuring 9 mm is similar to prior. No intracranial bleeds. There is cerebral volume loss for age, with resultant ventricular and sulcal prominence. There are periventricular and deep white matter chronic small vessel ischemic changes. There is intracranial internal carotid artery atherosclerosis. Skull and face: Calvarium and visualized facial bones appear intact, without suspicious lesions. Sinuses: Visualized sinuses and mastoids are clear. IMPRESSION: No acute intracranial pathology. Stable left falx extra-axial mass measuring 9 mm, favored to represent a small meningioma. Dictated by: Sarath Naqvi M.D. on 08/15/2023 at 22:50 Approved by: Sarath Naqvi M.D. on 08/15/2023 at 22:51 Chest x-ray: Radiologist's Impression: PROCEDURE: XR CHEST 1V INDICATIONS: AMS/AGITATION TECHNIQUE: One view of the chest was acquired. COMPARISON: [facility], CR, XR CHEST 1V, 06/19/2022, 14:41. FINDINGS: Surgical changes and devices: None. Lungs and pleura: Lungs are clear. No pleural effusions or pneumothorax. Mediastinum: Mediastinal contours appear normal. Heart size is enlarged, stable. Bones and chest wall: No suspicious bony lesions. Overlying soft tissues appear unremarkable. IMPRESSION: No acute cardiopulmonary abnormality is seen. Dictated by: Sarath Naqvi M.D. on 08/15/2023 at 22:52 Approved by: Sarath Naqvi M.D. on 08/15/2023 at 22:52 [facility] Narrative Medical decision making narrative: Agitation in patient with advanced parkinsons. Laboratory work unremarkable, no sign of infection. CT brain negative for new or acute findings. CXR negative for acute process. No signs of UTI. concerned about worsening slurred speech, however there is no slurred speech on exam. Patient mumbles but there is no aphasia or dysarthria. advised to increase seroquel dose for sleep and to inquire about more frequent home health visits for the patient [facility] PCP. Discharge Plan Departure Patient Disposition: Home Clinical Impression: Parkinson's disease dementia Instructions: Dementia Activity Restrictions/Additional Instructions: YOU CAN TRY TO INCREASE THE SEROQUEL TO 75 MG OR 100 MG DAILY. FOLLOW UP WITH HIS NEUROLOGIST. TALK ABOUT INCREASING HOME HEALTH CARE WITH HIS PRIMARY CARE PHYSICIAN Prescriptions: No Action lovastatin 10 MG tablet 10 mg Qty: 0 Referrals: Lenard Nance MD [Primary Care Provider] - Stand Alone Forms: Patient Portal/API
[2023-08-15 23:43] LABS: Appearance Urine UA CLEAR; Bilirubin Urine UA NEGATIVE (NEGATIVE); Color Urine UA YELLOW; Glucose Urine UA NEGATIVE (Negative); Ketones Urine UA TRACE (NEGATIVE); Leukocyte Esterase Urine UA NEGATIVE (NEGATIVE); Nitrite Urine UA NEGATIVE (Negative); Occult Blood Urine UA TRACE-INTACT (Negative); Protein Urine UA NEGATIVE (Negative); Specific Gravity Urine UA >=1.030 (1.000-1.035); Urobilinogen Urine UA 0.2 E.U./dL (0.2); pH Urine UA 5.5 (4.5-8.0)
[2023-08-15 23:47] LABS: Urine Volume 10mL (spun)
[2023-08-15 23:50] LABS: Bacteria Urine None Seen; RBC Urine 0-1/HPF (0-5/HPF); Squamous Epithelial Cell Urine 0-1 /HPF (0-5/HPF); Transitional Epi Cells Urine 0-1/HPF (0-5/HPF); WBC Urine 0-1/HPF (0-5/HPF)
[2023-08-15 23:51] LABS: Culture Indicated Urine Cult Not Indicated; Mucus Urine 1+ (Negative)
[2023-08-16] MEDS: QUETIAPINE 100 MG TABLET PO (00:06)
[2023-08-16 00:53] VITALS: BP 185/84; PULSE 76; RESP 16; O2SAT 98
== END 2023-08-16 00:54 | disposition home or self-care (01) ==
PROVIDERS: Emergency Provider Emergency Medicine; Family Provider Family Medicine; PCP Family Medicine
DX: G20.A1 Parkinson's disease without dyskinesia, without mention of fluctuations (principal); F02.80 Dementia in other diseases classified elsewhere, unspecified severity, without behavioral disturbance, psychotic disturbance, mood disturbance, and anxiety; R47.81 Slurred speech
CPT/HCPCS: 36415; 70450; 71045; 80053; 81001; 85025; 99284